=== PATIENT | female | born 1950 | race Caucasian/White ===

== ENCOUNTER → 2016-06-21 | Outpatient (CLI) | payer MEDICARE, OTHER ==
[~2016-06-21] MED LIST: *BLDWK7; /ALEN70TA; /ONDA4TA PO; ALTACE10 PO; AMO500 PO; ANAS1TAB PO; ASPI1TAB PO; ASPI81TA63; BABY81CH OR; CALCARB PO; CALCARB WITH VIT D; CALTTAB11 PO; CIPR500T89 PO; COLA100C2 OR; CRESTOR PO; DOXYCYC100 PO; ELIDEL TOPICAL; FISH1360 PO; FISHCAP PO; FLAG500T PO; HCTZ25 PO; HYDR25TA6; HYDR25TA6 OR; HYDR25TAB PO; LESCOLXL80 PO; LIPITOR40 PO; LISI-542 PO; LISI5TAB; LISI5TAB OR; LISINOPR5 PO; MULTIVIT PO; SIMV20TA2; SIMV20TA2 OR; TEMOVATEOI TOPICAL; TRICOR54 PO; TYLE325T5 PO; VICO5TAB PO; VIT D PO; VITMTA PO; [UNRECOGNIZED DRUG - OTHER] TOPICAL
--- NOTE | 2016-06-21 11:54 | REP ---
Clinical: Trauma. Injury. Technique: AP and lateral views of the right tibia / fibula. Findings: Age-related osteopenia and degenerative changes are appreciated. There is no evidence for acute fracture dislocation. No subcutaneous emphysema or radiodense foreign body. Impression: No acute fracture dislocation. Signed by Mil Silver MD 06/21/2016 11:45 A
== END ==
LOC: M RAD 10:58
PROVIDERS: ATTEND Internal Medicine Medical Oncology
DX: M79.89 Other specified soft tissue disorders (principal); M85.861 Other specified disorders of bone density and structure, right lower leg

== ENCOUNTER → 2016-06-24 | Outpatient (REF) | payer MEDICARE, OTHER | LOC: M LAB REF 09:50 | PROVIDERS: ATTEND Internal Medicine Medical Oncology | DX: E83.52 Hypercalcemia (principal); C50.919 Malignant neoplasm of unspecified site of unspecified female breast ==

== ENCOUNTER → 2016-08-19 | Outpatient (CLI) | payer MEDICARE, BC, OTHER ==
[~2016-08-19] MED LIST changes: +E-Z-PAQUE 96% w/w SUSP 176GM BTL As Ordered ONE
--- NOTE | 2016-08-19 16:30 | REP ---
SMALL BOWEL FOLLOW-THROUGH: The procedure was performed under the direct supervision of Dr. Rust. The images were reviewed with Dr. Rust. 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 The intestinal gas pattern is nonspecific. There is a surgical clip noted in the right abdomen. Liquid barium was administered and the barium column was followed through the small bowel to the level of the ileocolic anastomosis. Small bowel transit time was approximately 15 minutes. During fluoroscopy gentle palpation shows all loops are freely movable and pliable. There are no fixed or angulated loops. The small bowel mucosal pattern is normal in course and caliber. There is no transition to suggest a partial small bowel obstruction. The patient is status-post partial hemicolectomy. There is no stricture or obstruction seen at the ileocolic anastomosis. IMPRESSION: Post-surgical changes with the patient's history of right hemicolectomy and ileocolic anastomosis. The examination is within normal limits. 1 minute and 14 seconds of fluoroscopy time was utilized for this procedure. Reviewed by EDWARDO Stewart 08/19/2016 04:50 PEdited and Signed by Seth Rust MD 08/22/2016 08:34 A
== END ==
LOC: M RAD 08:50
PROVIDERS: ATTEND Surgery
DX: R10.13 Epigastric pain (principal)

== ENCOUNTER → 2016-10-17 | Outpatient (CLI) | payer MEDICARE, BC, OTHER ==
[~2016-10-17] MED LIST changes: -E-Z-PAQUE 96% w/w SUSP 176GM BTL As Ordered ONE; +MECL-68 PO; +ZOFR4TAB3 PO
--- NOTE | 2016-10-17 10:33 | REPMRS ---
Patient History The patient states she had a clinical breast exam in June 2016. Patient has history of cancer in the left breast at age 61 and had previous chemotherapy. No known family history of cancer. Malignant ultrasound-guided core biopsy of the left breast, June 14, 2012. Chemotherapy. Radiation therapy. Digital Mammo Screening Bilat: October 17, 2016 - Exam #: [id number] Bilateral CC and MLO view(s) were taken. Technologist: Shawnee Cadena, Technologist Prior study comparison: October 12, 2015, bilateral digital mammo screening bilat performed at [facility]. October 10, 2014, bilateral digital mammo screening bilat performed at [facility]. October 09, 2013, digital bilateral screening mammo performed at [facility]. FINDINGS: There are scattered fibroglandular densities. There are stable post treatment changes in the left breast.There has been no change in the appearance of the mammogram from the prior studies. There is a mild amount of scattered fibroglandular density which is fairly symmetric. There is no interval development of dominant mass, architectural distortion, or clustered microcalcification suggestive of malignancy. ASSESSMENT: BI-RADS/ACR category 1 mammogram. Negative. Recommendation Routine screening mammogram in 1 year (for women over age 40). This mammogram was interpreted with the aid of an FDA-approved computer-aided dectection system. Electronically Signed By: Thai Rust MD 10/17/16 [id number]
== END ==
LOC: M RAD 09:08
PROVIDERS: ATTEND Internal Medicine Medical Oncology
DX: Z12.31 Encounter for screening mammogram for malignant neoplasm of breast (principal); Z85.3 Personal history of malignant neoplasm of breast

== ENCOUNTER 2016-12-14 04:24 | Emergency (ER) | payer MEDICARE, BC, OTHER ==
[~2016-12-14] VITALS: Ht 157.5 cm; Wt 67.7 kg
[~2016-12-14 04:24] MED LIST changes: -MECL-68 PO; -ZOFR4TAB3 PO
[2016-12-14] MEDS ORDERED: MECLIZINE 25 MG TABLET PO ONE (06:45)
[2016-12-14] MEDS ORDERED: ONDANSETRON 4MG/2ML VIAL (J2405) IV ONE (06:45)
[2016-12-14] MEDS ORDERED: NS 1,000 ML IV ONE (06:45)
--- NOTE | 2016-12-14 07:00 | REPUSA ---
CLINICAL HISTORY: Dizziness. TECHNIQUE: Multiple axial CT images were obtained through the brain without IV contrast material. COMMENTS: There is normal configuration of sella turcica. There are no intra or extra-axial collections. There is no mass effect or midline shift. There is no evidence of hematoma formation. No hydrocephalus is p resent. The ventricles are symmetrical. No abnormal calcifications are present. There is diffuse age-appropriate cerebellar and cerebral atrophy with proportionally dilated ventricl es and cortical sulci. There are bilateral periventricular and subcortical white matter hypolucencies compatible with mild c hronic microvascular disease. Otherwise, no significant focal abnormalities are seen either in the posterior fossa or supratentoria l compartment. IMPRESSION: 1. Age-appropriate cerebellar and cerebral atrophy. 2. Mild chronic microvascular disease. 3. No evidence of acute intracranial pathology. Thank you for your kind referral of this patient.
[2016-12-14 07:06] LABS: BASO % 0.3 % (0.0-1.0); EOS % 0.5 % (0.0-3.0); LARGE UNSTAINED CELL # 0.1 K/mm3 (0.0-0.4); LARGE UNSTAINED CELL % 1.1 % (0.0-4.0); LYMPH # 1.9 K/mm3 (1.5-4.5); LYMPH % 25.7 % (24.0-44.0); MEAN CORPUSCULAR HGB CONC 35.4 g/dl (32.0-36.5); MEAN CORPUSCULAR VOLUME 87.5 fl (80.0-96.0); MONO # 0.3 K/mm3 (0.0-0.8); MONO % 3.5 % (0.0-5.0); NEUTROPHILS # 5.2 K/mm3 (1.8-7.7); NEUTROPHILS % 68.8 % (36.0-66.0); PLATELET COUNT, AUTOMATED 341 k/mm3 (150-450); RED CELL DISTRIBUTION WIDTH 12.5 % (11.5-14.5); WHITE BLOOD COUNT 7.5 K/mm3 (4.0-10.0)
[2016-12-14 07:34] LABS: ALBUMIN 3.7 GM/DL (3.2-5.2); ALBUMIN/GLOBULIN RATIO 0.82 (1.00-1.93); ALKALINE PHOSPHATASE 104 U/L (45-117); ALT/SGPT 49 U/L (12-78); ANION GAP 12 MEQ/L (8-16); AST/SGOT 38 U/L (15-37); BILIRUBIN,DIRECT 0.1 MG/DL (0.0-0.2); BILIRUBIN,TOTAL 0.4 MG/DL (0.2-1.0); BLOOD UREA NITROGEN 14 MG/DL (7-18); CALCIUM LEVEL 9.8 MG/DL (8.8-10.2); CARBON DIOXIDE LEVEL 24 MEQ/L (21-32); CHLORIDE LEVEL 105 MEQ/L (98-107); GLOMERULAR FILTRATION RATE > 60.0 (>45); GLUCOSE, FASTING 115 MG/DL (80-110); POTASSIUM SERUM 3.5 MEQ/L (3.5-5.1); SODIUM LEVEL 141 MEQ/L (136-145); TOTAL PROTEIN 8.2 GM/DL (6.4-8.2)
[2016-12-14] MEDS ORDERED: KETOROLAC 30 MG/ML VIAL (J1885) IV ONE (09:15)
[2016-12-14] MEDS ORDERED: MECL-68 PO (09:17)
[2016-12-14] MEDS ORDERED: ZOFR4TAB3 PO (09:17)
[2016-12-14 09:32] VITALS: BP 138/67
== END 2016-12-14 09:33 | disposition home or self-care (01) ==
LOC: M ED 04:24
DX: H81.10 Benign paroxysmal vertigo, unspecified ear (principal); R11.2 Nausea with vomiting, unspecified; I10 Essential (primary) hypertension; E78.00 Pure hypercholesterolemia, unspecified; Z85.3 Personal history of malignant neoplasm of breast; M54.9 Dorsalgia, unspecified; M81.0 Age-related osteoporosis without current pathological fracture; Z88.5 Allergy status to narcotic agent; Z88.8 Allergy status to other drugs, medicaments and biological substances; Z79.82 Long term (current) use of aspirin; Z79.899 Other long term (current) drug therapy
CPT/HCPCS: 70450; 80048; 80076; 81001; 85025; 96361; 96374; 96375; 99283; J1885; J2405

== ENCOUNTER → 2017-10-20 | Outpatient (CLI) | payer MEDICARE, BC, OTHER | LOC: M RAD 07:59 | DX: Z12.31 Encounter for screening mammogram for malignant neoplasm of breast (principal); Z85.3 Personal history of malignant neoplasm of breast | CPT/HCPCS: 77067 ==

== ENCOUNTER → 2018-09-17 | Outpatient (CLI) | payer MEDICARE, BC, OTHER ==
[~2018-09-17] MED LIST changes: -/ONDA4TA PO; -ANAS1TAB PO; +ANAS1TAB2 PO; -ASPI1TAB PO; +ASPI81TA26 PO; +MECL-68 PO; +ONDA-1 PO; +ZOFR4TAB14 PO
--- NOTE | 2018-09-17 10:44 | REP ---
LEFT KNEE SERIES: Five views. HISTORY: Pain. Five views of the left knee show moderate osteoarthritic narrowing, sclerosis and spur formation in the medial compartment. There is diffuse osteopenia. There is patellofemoral narrowing and spur formation as well. No erosive change is seen. IMPRESSION: Moderate osteoarthritis of the left knee. Electronically Signed by Seth Rust MD 09/17/2018 01:37 P
== END ==
LOC: M WUC 09:54
PROVIDERS: ATTEND Family Medicine
DX: M17.12 Unilateral primary osteoarthritis, left knee (principal)

== ENCOUNTER → 2019-03-11 | Outpatient (CLI) | payer MEDICARE, BC, OTHER ==
[~2019-03-11] MED LIST changes: +AMOX875T PO; +CALTTAB6 PO; +CENT1TAB PO; +CIPR-249 PO; +CYCL5TAB; +KETO10TAB PO; +NORC1TAB7 PO; +OMEG10002 PO; +ONDA4TAB6 PO; +PRED20TA
[2019-03-11 09:15] LABS: IONIZED CALCIUM 4.9 MG/DL (4.5-5.3)
[2019-03-11 09:20] LABS: HEMATOCRIT 36.6 % (36.0-47.0); MEAN CORPUSCULAR HEMOGLOBIN 31.3 pg (27.0-33.0); MEAN CORPUSCULAR HGB CONC 32.8 g/dl (32.0-36.5); MEAN CORPUSCULAR VOLUME 95.3 fl (80.0-96.0); PLATELET COUNT, AUTOMATED 296 10^3/uL (150-450); RED BLOOD COUNT 3.84 10^6/uL (4.00-5.40); WHITE BLOOD COUNT 6.4 10^3/uL (4.0-10.0)
[2019-03-11 09:57] LABS: ALBUMIN 3.5 GM/DL (3.2-5.2); ALT/SGPT 96 U/L (12-78); BILIRUBIN,DIRECT 0.1 MG/DL (0.0-0.2); BILIRUBIN,TOTAL 0.5 MG/DL (0.2-1.0); BLOOD UREA NITROGEN 12 MG/DL (7-18); CALCIUM LEVEL 10.6 MG/DL (8.8-10.2); CARBON DIOXIDE LEVEL 27 MEQ/L (21-32); CHLORIDE LEVEL 105 MEQ/L (98-107); CREATININE FOR GFR 0.82 MG/DL (0.55-1.30); GLOMERULAR FILTRATION RATE > 60.0 (>45); GLUCOSE, FASTING 97 MG/DL (70-100); POTASSIUM SERUM 4.3 MEQ/L (3.5-5.1); SODIUM LEVEL 138 MEQ/L (136-145); TOTAL PROTEIN 9.7 GM/DL (6.4-8.2)
[2019-03-11 12:44] LABS: TOTAL 25(OH) VITAMIN D 36.1 NG/ML (30.0-100.0)
[2019-03-12 10:37] LABS: ALBUMIN % 47.4 % (55.8-66.1); ALPHA-1-GLOBULIN % 2.9 % (2.9-4.9); ALPHA-1-GLOBULINS 0.28 GM/DL (0.17-0.41); ALPHA-2-GLOBULINS 0.87 GM/DL (0.42-0.99); BETA-1-GLOBULINS % 5.2 % (4.7-7.2); BETA-2-GLOBULINS 0.36 GM/DL (0.19-0.55); BETA-2-GLOBULINS % 3.7 % (3.2-6.5); GAMMA GLOBULIN % 31.8 % (11.1-18.8); GAMMA GLOBULINS 3.08 GM/DL (0.65-1.58)
== END ==
LOC: M WUC 08:06
PROVIDERS: ATTEND Family Medicine
DX: M81.0 Age-related osteoporosis without current pathological fracture (principal); I10 Essential (primary) hypertension; E83.52 Hypercalcemia; R74.0 Nonspecific elevation of levels of transaminase and lactic acid dehydrogenase [LDH]; R77.9 Abnormality of plasma protein, unspecified

== ENCOUNTER → 2019-09-19 | Outpatient (CLI) | payer MEDICARE, BC, OTHER ==
[~2019-09-19] MED LIST changes: +ACYC400T PO; +ASPI81CH33 PO; +ASPI81TA86 PO; +DEXA4TA PO; +HYDR-3490 PO; -HYDR25TAB PO; -LISI-542 PO; +LISI-898 PO; -MECL-68 PO; +MECL1TAB31 PO; +PERC5TAB12 PO; +POTA20TA6 PO; +REVL10CA2 PO; +REVL25CA PO
[2019-09-19 08:54] LABS: HEMATOCRIT 34.2 % (36.0-47.0); HEMOGLOBIN 11.4 g/dl (12.0-15.5); MEAN CORPUSCULAR HEMOGLOBIN 31.1 pg (27.0-33.0); MEAN CORPUSCULAR HGB CONC 33.3 g/dl (32.0-36.5); MEAN CORPUSCULAR VOLUME 93.4 fl (80.0-96.0); PLATELET COUNT, AUTOMATED 306 10^3/uL (150-450); RED BLOOD COUNT 3.66 10^6/uL (4.00-5.40); WHITE BLOOD COUNT 6.4 10^3/uL (4.0-10.0)
[2019-09-19 09:13] LABS: PROTHROMBIN TIME 12.9 SECONDS (11.8-14.0)
[2019-09-19 09:51] LABS: ALBUMIN 3.3 GM/DL (3.2-5.2); ALT/SGPT 126 U/L (12-78); BILIRUBIN,TOTAL 0.6 MG/DL (0.2-1.0); BLOOD UREA NITROGEN 12 MG/DL (7-18); CALCIUM LEVEL 10.7 MG/DL (8.8-10.2); CARBON DIOXIDE LEVEL 25 MEQ/L (21-32); CHLORIDE LEVEL 104 MEQ/L (98-107); CREATININE FOR GFR 0.86 MG/DL (0.55-1.30); GLOMERULAR FILTRATION RATE > 60.0 (>39); GLUCOSE, FASTING 93 MG/DL (70-100); POTASSIUM SERUM 4.2 MEQ/L (3.5-5.1); SODIUM LEVEL 135 MEQ/L (136-145); TOTAL PROTEIN 10.3 GM/DL (6.4-8.2)
--- NOTE | 2019-09-19 10:22 | REP ---
TWO-VIEW CHEST: 09/19/2019 INDICATION: Preoperative assessment. COMPARISON: 02/13/2019 FINDINGS: The lungs are clear. There is no pleural effusion or pneumothorax. The cardiac silhouette is at the upper limits of normal in size. Left axillary surgical clips are noted. IMPRESSION: Clear lungs. Electronically Signed by Abner Sykes DO 09/20/2019 08:41 A
--- NOTE | 2019-09-19 11:06 | ECGEPIP ---
[facility] Test Date: 2019-09-19 Pat Name: DAVID MARIA Department: Room: - Gender: Female Extrusion Former: JIM : 1950 Requested By: Hua Rodarte Order Number: [id number] Reading MD: Jimbo Morales Measurements Intervals [place] Rate: 82 P: 25 ND: 173 QRS: 27 QRSD: 82 T: 31 QT: 387 QTc: 453 Interpretive Statements Normal sinus rhythm PACs Nonspecific ST-T wave abnormalities No significant change when compared to prior tracing of 02/13/2019 Electronically Signed on 09-19-2019 11:05:44 EDT by Jimbo Morales
[2019-09-19 11:33] LABS: ERYTHROCYTE SEDIMENTATION RATE 85 mm/hr (0-30)
== END ==
LOC: M LAB 08:04
PROVIDERS: ATTEND Orthopaedic Surgery
DX: Z01.818 Encounter for other preprocedural examination (principal); M17.12 Unilateral primary osteoarthritis, left knee

== ENCOUNTER → 2019-09-22 | Outpatient (CLI) | payer MEDICARE, BC, OTHER ==
[~2019-09-22] MED LIST changes: -ACYC400T PO; -ASPI81CH33 PO; +ASPI81TA85 PO; -ASPI81TA86 PO; -DEXA4TA PO; -HYDR-3490 PO; +HYDR25TAB PO; +LISI-542 PO; -LISI-898 PO; -POTA20TA6 PO; -REVL10CA2 PO; -REVL25CA PO
== END ==
LOC: M LABSMTC 10:56
PROVIDERS: ATTEND Anesthesiology
DX: Z01.818 Encounter for other preprocedural examination (principal); Z11.59 Encounter for screening for other viral diseases

== ENCOUNTER 2019-09-25 06:00 | Inpatient (IN) | payer MEDICARE, BC, OTHER ==
--- NOTE | 2019-09-23 18:36 | HPE ---
DATE OF ANTICIPATED ADMISSION: 09/25/2019 ATTENDING PHYSICIAN: Dr. Hua Boss CHIEF COMPLAINT: Left knee pain and stiffness. HISTORY: This is a pleasant 69-year-old female patient with progressively worsening left knee pain and stiffness that has failed to improve with conservative management. She has elected for surgical intervention for her continued symptoms. She has been consented by Dr. oBss for left total knee arthroplasty. ALLERGIES: CODEINE. CURRENT MEDICATIONS: - Caltrate 600 - vitamin D 400 one by mouth twice a day - aspirin 81 mg one by mouth daily - Women's multivitamin one by mouth daily - fish oil one by mouth daily - lisinopril 5 mg one by mouth daily - hydrochlorothiazide 25 mg one by mouth daily PAST MEDICAL HISTORY: Hypertension, hyperlipidemia, breast cancer, elevated liver function tests (LFTs). PAST SURGICAL HISTORY: Hysterectomy, appendectomy, colon resection, right foot surgery, left knee arthroscopy, left partial mastectomy, right knee arthroscopy. SOCIAL HISTORY: The patient does not smoke or use alcohol. FAMILY HISTORY: Noncontributory. REVIEW OF SYSTEMS: Denies fever, chills, chest pain, shortness breath, nausea, vomiting, diarrhea. Denies any recent upper respiratory or urinary tract infection symptoms. Reports pain in the left knee with weightbearing activities. PHYSICAL EXAM: Height feet 2 inches, weight 145, temperature 97.1, blood pressure 150/80, respirations 65, pulse 15. She is normocephalic, atraumatic. Neck is supple and nontender with no lymphadenopathy or jugular venous distention (JVD). S1, S2 auscultated with no murmurs, rubs or gallops. Lungs: Clear to auscultation bilaterally with no wheezes, rales, rhonchi. Abdomen: Soft, nontender. Left lower extremity is well perfused, has intact neurovascular status. Irritability throughout range of motion. Overlying skin is intact. There is rashes or breaks in the skin. EKG: Normal sinus rhythm with premature atrial contractions (PACs). Chest x-ray with no acute cardiopulmonary process. LABS: Red count 3.66, white count 6.4, hemoglobin 11.4, hematocrit 34.2, ESR 85, BUN 12, creatinine 0.86, PT 12.9, INR 1. Medical optimization by Dr. Decker available for review today on chart. IMPRESSION: Symptomatic left knee degenerative changes. PLAN: Consented for a left total knee arthroplasty with Dr. Boss.
[2019-09-25] VITALS (7 sets, daily range): BP systolic 122–130; BP diastolic 59–72
[~2019-09-25] VITALS: Ht 154.9 cm; Wt 68.0 kg
[~2019-09-25 06:00] MED LIST changes: -ASPI81TA85 PO; +HYDR-3490 PO; -HYDR25TAB PO; -LISI-542 PO; +LISI-898 PO; -PERC5TAB12 PO; +fentaNYL 100 MCG/2 ML INJECTION (J3010) IV SCH
[2019-09-25] MEDS ORDERED: fentaNYL 100 MCG/2 ML INJECTION (J3010) As Ordered ONE ×2 (06:39→07:57)
[2019-09-25] MEDS ORDERED: MIDAZOLAM INJ 2MG/2ML VIAL (J2250 PER 1MG) As Ordered ONE ×2 (06:39→07:57)
[2019-09-25] MEDS ORDERED: LR 1,000 ML IV ONE (07:00)
[2019-09-25] MEDS ORDERED: ceFAZolin SOD 2 GM in IV 1 EA IV ONE (07:00)
[2019-09-25] MEDS ORDERED: ACETAMINOPHEN 500 MG TAB PO ONE (07:00)
[2019-09-25] MEDS ORDERED: BUPIVACAINE HCL 0.25% 10ML VIAL As Ordered ONE (07:13)
[2019-09-25] MEDS ORDERED: TRANEXAMIC ACID 100 MG/ML 10ML VIAL As Ordered ONE (07:13)
[2019-09-25] MEDS ORDERED: ceFAZolin 1GM VIAL (J0690 PER 500MG) As Ordered ONE (07:13)
[2019-09-25] MEDS ORDERED: BUPIVACAINE LIPOSOME/PF 1.3% 20ML VIAL (13.3MG/ML)(EXPAREL)(C9290 PER1MG) As Ordered ONE (07:14)
[2019-09-25] MEDS ORDERED: EPINEPHrine INJ 1 MG/ML 1ML AMP As Ordered ONE (07:14)
[2019-09-25] MEDS: MIDAZOLAM INJ 2MG/2ML VIAL (J2250 PER 1MG) IV SCH ×2 (07:18→07:20)
[2019-09-25] MEDS ORDERED: SCOPOLAMINE 1MG TRANSDERMAL PATCH As Ordered ONE (07:35)
[2019-09-25] MEDS ORDERED: SCOPOLAMINE 1MG TRANSDERMAL PATCH TOP ONE (07:45)
[2019-09-25] MEDS ORDERED: LIDOCAINE 2% 100MG/5ML SDV (FOR ANES.) As Ordered ONE (07:57)
[2019-09-25] MEDS ORDERED: BUPIVACAINE/DEXTROSE 0.75% 2 ML AMP As Ordered ONE (07:57)
[2019-09-25] MEDS ORDERED: propofoL 200 MG/20 ML VIAL As Ordered ONE (07:57)
[2019-09-25] MEDS ORDERED: ONDANSETRON 4MG/2ML VIAL As Ordered ONE (07:57)
[2019-09-25] MEDS ORDERED: ePHEDrine SULFATE 25 MG/5 ML(5MG/ML) SYRINGE As Ordered ONE (08:03)
[2019-09-25] MEDS ORDERED: ACETAMINOPHEN 1000MG 100ML IV BTL (OFIRMEV) (J0131 PER 10MG) As Ordered ONE (08:16)
[2019-09-25] MEDS ORDERED: ONDANSETRON 4MG/2ML VIAL IV PRN ×2 (09:30→09:45)
[2019-09-25] MEDS ORDERED: MORPHINE 2 MG/ML 1ML VIAL (J2270) IV PRN (09:30)
[2019-09-25] MEDS ORDERED: PERCOCET 5MG/325MG TAB PO PRN ×2 (09:30)
[2019-09-25] MEDS ORDERED: ACETAMINOPHEN TAB 650MG DOSE (2X325MG) PO PRN (09:30)
[2019-09-25] MEDS ORDERED: LR 1,000 ML IV SCH ×2 (09:30→09:45)
[2019-09-25] MEDS ORDERED: fentaNYL 100 MCG/2 ML INJECTION (J3010) IV PRN (09:45)
--- NOTE | 2019-09-25 09:55 | REP ---
Left knee: Two views. History: Postop evaluation. AP and lateral portably obtained views of the left knee demonstrate left knee arthroplasty components in good position. Anterior skin mindi and periarticular an intra-articular fluid and gas are seen. Impression: Status post left knee arthroplasty. Electronically Signed by Seth Rust MD 09/25/2019 09:47 A
[2019-09-25] MEDS ORDERED: ROPIvacaine 0.5% 30ML INJECTION (J2795 PER 1MG) ONE (11:13)
[2019-09-25] MEDS ORDERED: dexameTHASONE 10MG/1ML VIAL PRES.FREE (J1100 PER 1MG) ONE (11:13)
[2019-09-25] MEDS ORDERED: LIDOCAINE 1% MDV 20ML VIAL ONE (11:13)
[2019-09-25] MEDS: ceFAZolin SOD 2 GM in IV 1 EA IV SCH (14:43)
--- NOTE | 2019-09-25 19:29 | CR.PDOC ---
General Date of Consultation: Sep 25, 2019 Consultation REASON FOR CONSULTATION/CHIEF COMPLAINT: Status post left total knee arthroplasty. HISTORY OF PRESENT ILLNESS: 69-year-old female with past medical history of hypertension, hyperlipidemia and breast cancer, status post resection is admitted status post left total knee arthroplasty. Patient is seen on the floor, comfortable in bed, without any complaints at this time. She is able to move her left lower extremity and reports minimal pain at this time. She denies any shortness of breath, chest pain, nausea, vomiting, diarrhea or constipation. 10 point review of system is negative except for above ALLERGIES: Please see below. HOME MEDICATIONS: Please see below. PAST MEDICAL HISTORY: 1. Hypertension. 2. Hyperlipidemia. 3. Breast cancer PAST SURGICAL HISTORY: 1. Appendectomy 2. Left total knee arthroplasty FAMILY HISTORY: Negative for heart disease SOCIAL HISTORY: Never smoker. Denies alcohol use. Denies drug use PHYSICAL EXAMINATION: VITAL SIGNS: Please see below. GENERAL: No distress HEENT: Normocephalic, atraumatic, moist mucous membranes NECK: Supple CARDIOVASCULAR EXAMINATION: S1, S2, no murmurs RESPIRATORY EXAMINATION: Clear to auscultation, no wheezing ABDOMINAL EXAMINATION: Soft, nontender, nondistended, positive bowel sounds EXTREMITIES: Range of motion limited due to pain SKIN: No rash NEUROLOGICAL EXAMINATION: Alert and oriented 3, no focal deficits PSYCHIATRIC EXAMINATION: Calm and cooperative LABORATORY DATA: Please see below. ASSESSMENT/PLAN: 69-year-old female with past medical history of hypertension, hyperlipidemia and breast cancer is admitted post left total knee arthroplasty. 1. Left total knee arthroplasty. Postop management including DVT prophylaxis as per primary team. 2. Hypertension. Continue lisinopril and hydrochlorothiazide Vital Signs/I&O Vital Signs Date Time Temp Pulse Resp B/P (MAP) Pulse Ox O2 Delivery O2 Flow Rate FiO2 09/25/19 15:30 98.5 94 16 126/71 (89) 98 Room Air 09/25/19 09:45 2 Allergies Coded Allergies: TAPE (Verified Allergy, Mild, RASH, 09/18/19) codeine (Verified Adverse Reaction, Mild, nausea, 09/18/19) paclitaxel (Verified Adverse Reaction, Mild, bp drops, 09/18/19) Uncoded Allergies: EPIDURAL (Allergy, Intermediate, generalized rash, 09/18/19) Home Medications Scheduled Aspirin (Aspirin EC) 81 Mg Tab, 81 MG PO DAILY, (Reported) Enzo/D3/Mag11/Zinc/High Worker/Hector/Bor (Caltrate 600+D Plus Tablet) 1 Each Tablet, 1 TAB PO BID for 30 Days, #60 (Reported) Hydrochlorothiazide (Hydrochlorothiazide) 25 Mg Tab, 0.25 TAB PO DAILY, (Reported) Lisinopril (Lisinopril) 5 Mg Tablet, 5 MG PO DAILY, (Reported) Multivit-Min/FA/Lycopen/Lutein (Centrum Silver Tablet) 1 Each Tablet, 1 TAB PO DAILY for 30 Days, #30 (Reported) [place]-3/Dha/Epa/Fish Oil (Fish Oil 1,000 mg Softgel) 1 Each Capsule, 1 CAP PO DAILY, (Reported) BOB HARPER MD Sep 25, 2019 19:29
[2019-09-25] MEDS: ASPIRIN 81 MG CHEW TABLET PO SCH (20:54)
[2019-09-26] MEDS: ceFAZolin SOD 2 GM in IV 1 EA IV SCH ×2 (00:18→08:07)
[2019-09-26 02:00] VITALS: BP 105/52
[2019-09-26 06:00] VITALS: BP 103/51
[2019-09-26] MEDS ORDERED: PERC5TAB12 PO (06:17)
[2019-09-26] MEDS ORDERED: ASPI81TA86 PO (06:17)
[2019-09-26 06:34] LABS: HEMATOCRIT 24.4 % (36.0-47.0); HEMOGLOBIN 8.3 g/dl (12.0-15.5); MEAN CORPUSCULAR HEMOGLOBIN 31.9 pg (27.0-33.0); MEAN CORPUSCULAR VOLUME 93.8 fl (80.0-96.0); PLATELET COUNT, AUTOMATED 204 10^3/uL (150-450)
[2019-09-26 07:08] LABS: ALBUMIN 2.6 GM/DL (3.2-5.2); BILIRUBIN,TOTAL 0.7 MG/DL (0.2-1.0); CALCIUM LEVEL 9.6 MG/DL (8.8-10.2); CREATININE FOR GFR 1.16 MG/DL (0.55-1.30); GLOMERULAR FILTRATION RATE 49.2 (>39); POTASSIUM SERUM 3.6 MEQ/L (3.5-5.1)
[2019-09-26] MEDS: ASPIRIN 81 MG CHEW TABLET PO SCH (08:07)
[2019-09-26 08:08] VITALS: BP 108/51
[2019-09-26] MEDS ORDERED: lisinopriL 5 MG TAB PO SCH (09:00)
[2019-09-26] MEDS ORDERED: hydroCHLOROthiazide 12.5 MG CAPSULE PO SCH (09:00)
[2019-09-26] MEDS ORDERED: MULTIVITAMINS/MINERALS THERAP 1 TAB PO SCH (09:00)
[2019-09-26] MEDS ORDERED: MOM 30ML SUSPENSION UDC PO SCH (09:00)
[2019-09-26] MEDS ORDERED: MIRALAX *UNIT DOSE* 17GM PACKET PO SCH (09:00)
[2019-09-26] MEDS ORDERED: OMEGA-3 1000MG CAPSULE PO SCH (09:00)
[2019-09-26 09:47] VITALS: BP 76/47
[2019-09-26 09:49] VITALS: BP 91/41
[2019-09-26 10:52] VITALS: BP 106/59
--- NOTE | 2019-09-29 12:30 | RO ---
DATE OF PROCEDURE: 09/25/2019 PREPROCEDURE DIAGNOSIS: Left knee degenerative arthritis. POSTPROCEDURE DIAGNOSIS: Left knee degenerative arthritis. PROCEDURE: Left total knee arthroplasty using a size 5 cruciate retaining Attune femoral component cemented with a size 4 cemented tibial tray with a 5 mm rotating platform polyethylene insert and an 32 mm polyethylene button. All components were cemented. Prostheses were made by [employer]. SURGEON: Dr. Hua Boss. GARNISHMENT SPECIALIST: Mr. Eduard Shipley PA-C. ANESTHESIA: Spinal with left femoral nerve block. COMPLICATIONS: None. SPECIMENS: Joint surface of the left knee. DESCRIPTION OF PROCEDURE: Antibiotics were given intravenously preoperatively. Successful left femoral nerve block and then spinal anesthetic was induced. Tourniquet placed in the left upper thigh and not inflated. The left lower extremity was carefully prepped and draped in the usual sterile fashion and elevated. After an appropriate time out the tourniquet was inflated. A longitudinal incision was made from a medial parapatellar approach to the knee. Bovie cautery was used to coagulate the crossing vessels. Subperiosteal dissection over the proximal and mediolateral tibial plateau was performed and the knee was flexed, patella everted, anterior cruciate ligament (ACL) debrided. Drill placed down the center of the femoral canal followed by the intramedullary shameka and the distal femoral cutting jig set at 5 degree valgus cut at 9 mm resection level for a left knee. I was pinned into place and the distal femoral cut performed. AC sizing jig measured for size 5. Three-degree flexion and rotation were dialed in. Pins placed, 4-in-1 block applied, and then anterior posterior and chamfer cuts were performed. The sulcus cut jig was then placed and sulcus osteotomy performed. With then exposed the proximal tibia and used an extramedullary tibial guide to estimate being parallel to the mechanical axis of the tibia by referencing off the medial tibial condyle at 4 mm resection level. The block was pinned into position, then secondary check with the extramedullary rods confirmed we appear to be parallel with appropriate slope posteriorly. Proximal tibial osteotomy was performed and then we placed the laminar greeting card editor laterally and performed a completion medial meniscectomy debriding the posteromedial osteophytes. Then placed the laminar greeting card editor medially and performed a completion lateral meniscectomy debriding the posterolateral osteophytes. Spacer blocks were applied and trialled and size 5 actually fit the best. She had excellent symmetry to varus, valgus stress testing both in flexion and in extension. We then exposed the proximal tibia sized for a #4 tray. Then the reamer and broach applied and then the trial polyethylene placed followed by the trial femoral component. It fit nicely. Brought the knee into extension, everted the patella. Performed patellar osteotomy, sized for a 32 button. Lug holes drilled, trial placed and a patellofemoral tracking was anatomic. We drilled the lug holes in the femur. Then removed all the trial components and placed Exparel on the subperiosteal tissues around the distal femur and the proximal tibia. Then I applied a copious amount of pulsatile lavaged irrigant solution to the knee and prepared the bony surfaces for cementing. While my compounding assistant, Mr. Eduard Shipley mixed the cement on the back table. He was also critical to the success of this difficult surgery by applying appropriate soft tissue retraction. Help to manipulate the knee. Help to prepare the patient. Help to close the wound amongst many other tasks to allow me to perform the operation smoothly, efficiently and safely. Once all the bony surfaces were thoroughly dried, we cemented the tibial tray, removed access cement. Placed the polyethylene, cemented the femoral component, removed excess cement. Brought the knee out in extension, everted the patella, cemented the patellar button, held it with a clamp with the knee in full extension, then removed excess cement. We held this position till the cement hardened. As we were waiting for the cement to harden, we copiously pulsatile lavaged irrigated out the knee joint once again. Then instilled tranexamic acid. We the began closing the arthrotomy with two #1 PDS sutures. The medial parapatellar area as well as the #1 PDS suture. Then a running double arm #1 Stratafix used to close the capsule. Then the tourniquet was released. We copiously irrigated off the soft tissue. Closed the deep subdermal tissues with interrupted #2-0 PDS sutures. Skin was closed with mindi covered by an Optifoam and a dry sterile bulky dressing. Then she was transferred to the recovery room in stable condition. There were no intraoperative complications.
--- NOTE | 2019-10-05 13:05 | DSES ---
DATE OF ADMISSION: 09/25/2019 DATE OF DISCHARGE: 09/26/2019 ATTENDING PHYSICIAN: Cayden Boss MD ADMISSION DIAGNOSIS: 1. Left knee osteoarthritis. OTHER DIAGNOSES: 1. Hypertension. 2. Hyperlipidemia. 3. Breast cancer. 4. Elevated liver function tests. DISCHARGE DIAGNOSIS: 1. Osteoarthritis, left knee, status post left total knee arthroplasty. OPERATION PERFORMED: Left total knee arthroplasty. HISTORY: This is a 69-year-old female patient with progressively worsening left knee pain and stiffness. She failed to improve with conservative management. She was admitted for elective left knee replacement. HOSPITAL COURSE: The patient was admitted on the day of surgery and underwent a left total knee arthroplasty, which was uneventful. She did well with in the postoperative period and hospital course was without complications. She was up with physical therapy per their protocol, weightbearing as tolerated on the left lower extremity. Her pain was controlled on the day of discharge. She will use Xarelto and ROSY stockings for deep vein thrombosis (DVT) prophylaxis per protocol. She will resume her preoperative medications and diet along with oral pain medications for pain control. She was given instructions to include but not limited to wound monitoring, activity limitations. She will follow up in our office in 10-14 days for surgical followup. Please refer the medical record for further details
[2020-01-29] MEDS ORDERED: ASPI81CH33 PO (12:56)
[2020-02-12] MEDS ORDERED: POTA20TA6 PO (10:59)
[2020-02-12] MEDS ORDERED: DEXA4TA PO (17:58)
[2020-02-12] MEDS ORDERED: ACYC400T PO (17:58)
[2020-02-12] MEDS ORDERED: REVL25CA PO (18:02)
[2020-02-17] MEDS ORDERED: REVL10CA2 PO (12:22)
[2020-03-04] MEDS ORDERED: POTA20TA6 PO ×2 (08:50→15:05)
== END 2019-09-26 15:22 | disposition home health service (06) | DRG 470 ==
LOC: M OR 06:00 → M MS5PR 10:30
PROVIDERS: ADMIT Orthopaedic Surgery; ATTEND Orthopaedic Surgery
PROC: 0SRD0J9 Replacement of Left Knee Joint with Synthetic Substitute, Cemented, Open Approach (ICD-10-PCS; principal; 2019-09-25 07:30)
DX: M17.12 Unilateral primary osteoarthritis, left knee (principal); Z11.59 Encounter for screening for other viral diseases; I10 Essential (primary) hypertension; E78.5 Hyperlipidemia, unspecified; Z79.899 Other long term (current) drug therapy; Z79.82 Long term (current) use of aspirin; Z88.8 Allergy status to other drugs, medicaments and biological substances; Z88.5 Allergy status to narcotic agent

== ENCOUNTER → 2019-12-10 | Outpatient (CLI) | payer MEDICARE, BC ==
[~2019-12-10] MED LIST changes: +ACYC400T PO; +ASPI81CH33 PO; +ASPI81TA86 PO; +DEXA4TA PO; -HYDR-3490 PO; +HYDR25TAB PO; +LISI-542 PO; -LISI-898 PO; +PERC5TAB12 PO; +POTA20TA6 PO; +REVL25CA PO; -fentaNYL 100 MCG/2 ML INJECTION (J3010) IV SCH
--- NOTE | 2019-12-10 12:36 | REPMRS ---
Patient History The patient states she has not had a clinical breast exam in over a year. No known family history of cancer. Malignant ultrasound-guided core biopsy of the left breast, June 14, 2012. Chemotherapy. Radiation therapy. 3D TOMOSYNTHESIS WAS PERFORMED. YUNIOR Rahman. Digital Woman Screen Mammo: December 10, 2019 - Exam #: [id number] Bilateral CC and MLO view(s) were taken. Technologist: Hansa Monteiro Technologist Prior study comparison: October 22, 2018, bilateral digital mammo screening bilat, performed at [facility]. October 20, 2017, bilateral digital mammo screening bilat, performed at [facility]. FINDINGS: There are scattered fibroglandular densities. There is a fairly symmetric fibroglandular pattern in both breasts. There has been no interval development of masses, areas of architectural distortion or clusters of microcalcifications typical of malignancy. Assessment: BI-RADS/ACR category 2 mammogram. Benign Findings. Recommendation Routine screening mammogram of both breasts in 1 year (for women over age 40). This mammogram was interpreted with the aid of an FDA-approved computer-aided dectection system. Electronically Signed By: Tj Zuluaga MD 12/10/19 [id number]
== END ==
LOC: M WHC 10:04
PROVIDERS: ATTEND Family Medicine
DX: Z12.31 Encounter for screening mammogram for malignant neoplasm of breast (principal)

== ENCOUNTER → 2020-01-10 | Outpatient (CLI) | payer MEDICARE, BC, OTHER ==
[~2020-01-10] MED LIST changes: -ACYC400T PO; -DEXA4TA PO; -POTA20TA6 PO; -REVL25CA PO
--- NOTE | 2020-01-15 08:15 | REP ---
SKELETAL SURVEY ADULT: 13-VIEWS HISTORY: Bone pain. FINDINGS: The bony calvarium is intact on AP and lateral views of the skull. No mandibular lesion is seen. There is mild degenerative disc spurring in the cervical spine at C5-6 and C6-7. There is vascular calcification along the course of the left carotid artery. Cervical spine views are otherwise unremarkable. AP views of both upper arms show surgical clips in the left axilla and mild diffuse osteopenia. There is no bony destructive lesion. AP view of the pelvis shows osteoarthritic changes in the hips bilaterally and diffuse osteopenia. No bony destructive lesion is seen. AP views of each femur show hip joint and medial compartment knee joint osteoarthritis on the right and hip joint osteoarthritis on the left. The left knee joint is prosthetic. No bony destructive lesion is seen. AP and lateral views of the lumbar spine show mild degenerative disc and osteoarthritic facet changes. No bony destructive lesion is seen. Sacrum and sacroiliac (SI) joints are intact. There is a surgical clip in the right upper quadrant. IMPRESSION: No bony destructive lesion seen. MTDD
== END ==
LOC: M RAD 08:44
PROVIDERS: ATTEND Internal Medicine Medical Oncology
DX: M89.8X0 Other specified disorders of bone, multiple sites (principal); M16.0 Bilateral primary osteoarthritis of hip; M17.11 Unilateral primary osteoarthritis, right knee; M85.851 Other specified disorders of bone density and structure, right thigh; M85.852 Other specified disorders of bone density and structure, left thigh

== ENCOUNTER → 2020-01-13 | Outpatient (REF) | payer MEDICARE, OTHER ==
[2020-01-15 04:06] LABS: FREE KAPPA LIGHT CHAINS URINE 4.24 mg/L (0.63-113.79); FREE LAMBDA LIGHT CHAINS URINE 10.59 mg/L (0.47-11.77); KAPPA/LAMBDA RATIO URINE 0.4 (1.03-31.76)
== END ==
LOC: M LAB REF 13:02
PROVIDERS: ATTEND Internal Medicine Medical Oncology
DX: C50.919 Malignant neoplasm of unspecified site of unspecified female breast (principal)

== ENCOUNTER → 2020-02-10 | Outpatient (CLI) | payer MEDICARE, BC, OTHER ==
[~2020-02-10] MED LIST changes: +ACYC400T PO; +DEXA4TA PO; +POTA20TA6 PO; +REVL25CA PO
--- NOTE | 2020-02-10 17:24 | REP ---
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 COMPARISON: Comparison adult bone survey January 10, 2020.. TECHNIQUE: Forty-nine minutes following the intravenous injection of a 8.25 mCi dose of F-18 FDG, three-dimensional PET scintigraphy is acquired from the skull base to the proximal thighs. Triplanar noncontrast CT scanning is acquired through the same anatomic range for attenuation correction, and image registration with scan parameters optimized to minimize radiation exposure to the patient. PET scintigraphy and CT datasets were fused and displayed on a workstation with multiplanar and projection display capability. FINDINGS: Head and neck soft tissues are unremarkable. No abnormal hypermetabolic uptake is observed in the thorax. No abnormal pulmonary parenchymal or hilar or mediastinal hypermetabolic uptake is seen. In the abdomen and pelvis, normal a patent, splenic, gastrointestinal, and genitourinary FDG accumulation is seen. There is no evidence of organomegaly. There are calcifications in the deep and portion of gallbladder consistent with gallstones. No abnormal abdominal or pelvic hypermetabolic uptake is seen. No abnormal skeletal uptake is observed. IMPRESSION: Negative PET scintigraphy. Cholelithiasis. <Electronically signed by Thai Rust > 02/10/20 [id number]
== END ==
LOC: M PLARAD 10:32
PROVIDERS: ATTEND Internal Medicine Medical Oncology
DX: C90.10 Plasma cell leukemia not having achieved remission (principal)
CPT/HCPCS: 78815; A9552

== ENCOUNTER → 2020-07-03 | Outpatient (CLI) | payer MEDICARE, BC, OTHER ==
[~2020-07-03] MED LIST changes: +CYCL-707 PO; +HYDR-3490 PO; -HYDR25TAB PO; -LISI-542 PO; +LISI-898 PO; +REVL10CA2 PO
--- NOTE | 2020-07-03 18:02 | REP ---
INDICATION: BACK PAIN. COMPARISON: Chest radiographs 09/19/2019. TECHNIQUE: AP and lateral thoracic spine. FINDINGS: There is mild compression deformity of T11 which is unchanged since the prior exam. There is no acute compression fracture or malalignment. There is mild diffuse spurring. There is mild disc space narrowing and subchondral sclerosis diffusely. The posterior elements are intact. IMPRESSION: Chronic mild compression deformity T11 is stable. No new compression fracture. Mild diffuse degenerative changes. <Electronically signed by Tj Zuluaga > 07/03/20 [id number]
--- NOTE | 2020-07-03 18:04 | REP ---
INDICATION: BACK PAIN. COMPARISON: None. TECHNIQUE: Three views lumbosacral spine. FINDINGS: There is no compression fracture. There is normal lumbar lordosis and alignment. There is mild diffuse spurring. Disc spaces are well preserved. There is sclerosis and spurring of the facets of L5-S1. Posterior elements are intact. IMPRESSION: Mild degenerative changes. No fracture or dislocation. <Electronically signed by Tj Zuluaga > 07/03/20 [id number]
== END ==
LOC: M RAD 15:56
PROVIDERS: ATTEND Internal Medicine Medical Oncology
DX: M51.37 Other intervertebral disc degeneration, lumbosacral region (principal); S22.080D Wedge compression fracture of T11-T12 vertebra, subsequent encounter for fracture with routine healing; X58.XXXD Exposure to other specified factors, subsequent encounter; Y92.89 Other specified places as the place of occurrence of the external cause; Y93.89 Activity, other specified; Y99.8 Other external cause status

== ENCOUNTER → 2020-07-14 | Outpatient (CLI) | payer MEDICARE, BC, OTHER ==
[~2020-07-14] MED LIST changes: +ACYC1TAB PO; -ACYC400T PO
--- NOTE | 2020-07-14 15:13 | REP ---
INDICATION: LT FLANK PAIN. COMPARISON: None. TECHNIQUE: Real-time sonographic evaluation of the kidneys is performed. FINDINGS: Renal cortical echogenicity pattern is normal bilaterally and contours are smooth. There is no evidence of hydronephrosis, cyst, mass, or calculus in either kidney. The right kidney measures 10.3 x 4.7 x 4.2 cm. Left renal dimensions are 10.6 x 4.1 x 4.2 cm. Urinary bladder is empty. IMPRESSION: Negative renal ultrasound. <Electronically signed by Tj Zuluaga > 07/14/20 [id number]
== END ==
LOC: M RAD 14:25
PROVIDERS: ATTEND Internal Medicine Medical Oncology
DX: R10.9 Unspecified abdominal pain (principal)

== ENCOUNTER → 2020-08-20 | Outpatient (CLI) | payer MEDICARE, BC, OTHER ==
[~2020-08-20] MED LIST changes: +COVI100V IM; +PRED20TA PO; +[UNRECOGNIZED DRUG - OTHER] XX
[2020-08-20 10:12] LABS: BASO % 0.6 % (0.0-1.0); EOS # 0.1 10^3/uL (0.0-0.5); EOS % 1.6 % (0.0-3.0); HEMATOCRIT 39.6 % (36.0-47.0); HEMOGLOBIN 12.9 g/dl (12.0-15.5); LYMPH # 2.2 10^3/uL (1.5-5.0); LYMPH % 34.8 % (24.0-44.0); MEAN CORPUSCULAR HEMOGLOBIN 29.1 pg (27.0-33.0); MEAN CORPUSCULAR HGB CONC 32.6 g/dl (32.0-36.5); MEAN CORPUSCULAR VOLUME 89.2 fl (80.0-96.0); MONO # 0.6 10^3/uL (0.0-0.8); MONO % 9.8 % (2.0-8.0); NEUTROPHILS # 3.3 10^3/uL (1.5-8.5); NEUTROPHILS % 52.1 % (36.0-66.0); PLATELET COUNT, AUTOMATED 368 10^3/uL (150-450); RED BLOOD COUNT 4.44 10^6/uL (4.00-5.40); WHITE BLOOD COUNT 6.3 10^3/uL (4.0-10.0)
[2020-08-20 10:38] LABS: ALT/SGPT 71 U/L (12-78); BILIRUBIN,TOTAL 0.6 MG/DL (0.2-1.0); BLOOD UREA NITROGEN 17 MG/DL (7-18); CARBON DIOXIDE LEVEL 31 MEQ/L (21-32); CHLORIDE LEVEL 103 MEQ/L (98-107); CREATININE FOR GFR 0.64 MG/DL (0.55-1.30); GLOMERULAR FILTRATION RATE > 60.0 (>39); GLUCOSE, FASTING 100 MG/DL (70-100); SODIUM LEVEL 140 MEQ/L (136-145); TOTAL PROTEIN 7.3 GM/DL (6.4-8.2)
== END ==
LOC: M WUC 08:04
PROVIDERS: ATTEND Internal Medicine Medical Oncology
DX: C90.00 Multiple myeloma not having achieved remission (principal)

== ENCOUNTER 2020-08-22 10:13 | Emergency (ER) | payer MEDICARE, BC, OTHER ==
[~2020-08-22] VITALS: Ht 157.5 cm; Wt 67.0 kg
[~2020-08-22 10:13] MED LIST changes: -[UNRECOGNIZED DRUG - OTHER] XX
[2020-08-22] MEDS ORDERED: ONDANSETRON 4MG/2ML VIAL IV ONE (11:40)
--- NOTE | 2020-08-22 12:02 | REP ---
INDICATION: vertigo. COMPARISON: Comparison CT study of the brain is from December 14, 2016.. TECHNIQUE: Helical scanning is acquired. 5 mm axial images were reformatted. Coronal MPR images were generated. FINDINGS: Preliminary digital clinic scheduler radiograph is unremarkable. There is mild vascular calcification in the distal internal carotid arteries. The visualized paranasal sinuses are clear. No bony abnormality is appreciated. On soft tissue window settings, there is mild generalized volume loss. Lateral, 3rd, and 4th ventricles are normal in size and position. Zuluaga-white differentiation pattern is intact above and below the tentorium. There is no evidence of intracranial hemorrhage. No mass, extra-axial fluid collection, midline shift, or acute infarction is appreciated. IMPRESSION: Vascular calcification and minimal generalized volume loss. No acute intracranial abnormality.. <Electronically signed by Thai Rust > 08/22/20 4720
[2020-08-22 13:07] LABS: BLOOD UREA NITROGEN 15 MG/DL (7-18); CALCIUM LEVEL 9.1 MG/DL (8.8-10.2); CARBON DIOXIDE LEVEL 26 MEQ/L (21-32); CHLORIDE LEVEL 106 MEQ/L (98-107); CREATININE FOR GFR 0.62 MG/DL (0.55-1.30); GLOMERULAR FILTRATION RATE > 60.0 (>39); GLUCOSE, FASTING 94 MG/DL (70-100); SODIUM LEVEL 139 MEQ/L (136-145)
[2020-08-22 13:14] LABS: BASO % 0.4 % (0.0-1.0); EOS % 0.1 % (0.0-3.0); HEMATOCRIT 38.3 % (36.0-47.0); HEMOGLOBIN 12.8 g/dl (12.0-15.5); LYMPH # 0.8 10^3/uL (1.5-5.0); LYMPH % 9.6 % (24.0-44.0); MEAN CORPUSCULAR HEMOGLOBIN 29.1 pg (27.0-33.0); MEAN CORPUSCULAR HGB CONC 33.4 g/dl (32.0-36.5); MONO # 0.6 10^3/uL (0.0-0.8); MONO % 6.6 % (2.0-8.0); NEUTROPHILS # 6.8 10^3/uL (1.5-8.5); NEUTROPHILS % 81.4 % (36.0-66.0); PLATELET COUNT, AUTOMATED 313 10^3/uL (150-450); WHITE BLOOD COUNT 8.3 10^3/uL (4.0-10.0)
[2020-08-22] MEDS ORDERED: MECL1TAB31 PO (14:04)
[2020-08-22] MEDS ORDERED: [UNRECOGNIZED DRUG - OTHER] XX ×3 (14:08→14:10)
[2020-08-22 14:28] VITALS: BP 147/66
--- NOTE | 2020-08-23 07:44 | ECGEPIP ---
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
== END 2020-08-22 14:38 | disposition home or self-care (01) ==
LOC: M ED 10:13
DX: H81.10 Benign paroxysmal vertigo, unspecified ear (principal); I10 Essential (primary) hypertension; Z85.3 Personal history of malignant neoplasm of breast; C90.00 Multiple myeloma not having achieved remission; I67.2 Cerebral atherosclerosis; Z95.828 Presence of other vascular implants and grafts; Z79.82 Long term (current) use of aspirin; Z79.899 Other long term (current) drug therapy; Z91.89 Other specified personal risk factors, not elsewhere classified; Z88.5 Allergy status to narcotic agent; Z88.8 Allergy status to other drugs, medicaments and biological substances
CPT/HCPCS: 70450; 80048; 85025; 93005; 96374; 97110; 97161; 97530; 99285; J2405

== ENCOUNTER → 2020-08-26 | Outpatient (CLI) | payer MEDICARE, BC, OTHER ==
[~2020-08-26] MED LIST changes: +[UNRECOGNIZED DRUG - OTHER] XX
[2020-08-26 09:43] LABS: BASO % 0.4 % (0.0-1.0); EOS # 0.1 10^3/uL (0.0-0.5); EOS % 1.8 % (0.0-3.0); HEMATOCRIT 38.5 % (36.0-47.0); HEMOGLOBIN 12.6 g/dl (12.0-15.5); LYMPH # 2.3 10^3/uL (1.5-5.0); LYMPH % 31.1 % (24.0-44.0); MEAN CORPUSCULAR HEMOGLOBIN 28.8 pg (27.0-33.0); MEAN CORPUSCULAR HGB CONC 32.7 g/dl (32.0-36.5); MEAN CORPUSCULAR VOLUME 87.9 fl (80.0-96.0); MONO # 0.9 10^3/uL (0.0-0.8); MONO % 12.4 % (2.0-8.0); NEUTROPHILS # 3.9 10^3/uL (1.5-8.5); NEUTROPHILS % 52.8 % (36.0-66.0); PLATELET COUNT, AUTOMATED 296 10^3/uL (150-450); RED BLOOD COUNT 4.38 10^6/uL (4.00-5.40); WHITE BLOOD COUNT 7.3 10^3/uL (4.0-10.0)
[2020-08-26 09:49] LABS: ALBUMIN 3.9 GM/DL (3.2-5.2); ALT/SGPT 59 U/L (12-78); BILIRUBIN,TOTAL 0.5 MG/DL (0.2-1.0); BLOOD UREA NITROGEN 18 MG/DL (7-18); CALCIUM LEVEL 9.7 MG/DL (8.8-10.2); CARBON DIOXIDE LEVEL 28 MEQ/L (21-32); CHLORIDE LEVEL 104 MEQ/L (98-107); GLOMERULAR FILTRATION RATE > 60.0 (>39); GLUCOSE, FASTING 94 MG/DL (70-100); POTASSIUM SERUM 4.2 MEQ/L (3.5-5.1); SODIUM LEVEL 140 MEQ/L (136-145); TOTAL PROTEIN 7.1 GM/DL (6.4-8.2)
== END ==
LOC: M WUC 08:05
PROVIDERS: ATTEND Internal Medicine Medical Oncology
DX: C90.00 Multiple myeloma not having achieved remission (principal)

== ENCOUNTER → 2020-09-02 | Outpatient (CLI) | payer MEDICARE, BC, OTHER ==
[2020-09-02 10:02] LABS: BASO % 0.5 % (0.0-1.0); EOS # 0.1 10^3/uL (0.0-0.5); EOS % 1.6 % (0.0-3.0); HEMATOCRIT 39.3 % (36.0-47.0); HEMOGLOBIN 12.9 g/dl (12.0-15.5); LYMPH # 2.2 10^3/uL (1.5-5.0); LYMPH % 34.6 % (24.0-44.0); MEAN CORPUSCULAR HEMOGLOBIN 29.2 pg (27.0-33.0); MEAN CORPUSCULAR HGB CONC 32.8 g/dl (32.0-36.5); MEAN CORPUSCULAR VOLUME 88.9 fl (80.0-96.0); MONO # 0.8 10^3/uL (0.0-0.8); MONO % 12.3 % (2.0-8.0); NEUTROPHILS # 3.1 10^3/uL (1.5-8.5); NEUTROPHILS % 49.6 % (36.0-66.0); PLATELET COUNT, AUTOMATED 272 10^3/uL (150-450); RED BLOOD COUNT 4.42 10^6/uL (4.00-5.40); WHITE BLOOD COUNT 6.3 10^3/uL (4.0-10.0)
[2020-09-02 10:28] LABS: ALBUMIN 3.9 GM/DL (3.2-5.2); ALT/SGPT 84 U/L (12-78); BILIRUBIN,TOTAL 0.6 MG/DL (0.2-1.0); BLOOD UREA NITROGEN 18 MG/DL (7-18); CALCIUM LEVEL 10.1 MG/DL (8.8-10.2); CARBON DIOXIDE LEVEL 29 MEQ/L (21-32); CHLORIDE LEVEL 105 MEQ/L (98-107); CREATININE FOR GFR 0.66 MG/DL (0.55-1.30); GLOMERULAR FILTRATION RATE > 60.0 (>39); GLUCOSE, FASTING 98 MG/DL (70-100); POTASSIUM SERUM 3.9 MEQ/L (3.5-5.1); SODIUM LEVEL 140 MEQ/L (136-145)
== END ==
LOC: M WUC 08:03
PROVIDERS: ATTEND Internal Medicine Medical Oncology
DX: C90.00 Multiple myeloma not having achieved remission (principal)

== ENCOUNTER → 2020-09-09 | Outpatient (CLI) | payer MEDICARE, BC, OTHER ==
[2020-09-09 11:24] LABS: BASO % 0.3 % (0.0-1.0); EOS # 0.1 10^3/uL (0.0-0.5); EOS % 2.3 % (0.0-3.0); HEMATOCRIT 38.4 % (36.0-47.0); HEMOGLOBIN 12.3 g/dl (12.0-15.5); LYMPH # 2.1 10^3/uL (1.5-5.0); LYMPH % 33.5 % (24.0-44.0); MEAN CORPUSCULAR HEMOGLOBIN 28.3 pg (27.0-33.0); MEAN CORPUSCULAR VOLUME 88.3 fl (80.0-96.0); MONO # 0.7 10^3/uL (0.0-0.8); MONO % 11.4 % (2.0-8.0); NEUTROPHILS # 3.2 10^3/uL (1.5-8.5); NEUTROPHILS % 50.9 % (36.0-66.0); PLATELET COUNT, AUTOMATED 294 10^3/uL (150-450); RED BLOOD COUNT 4.35 10^6/uL (4.00-5.40); WHITE BLOOD COUNT 6.2 10^3/uL (4.0-10.0)
[2020-09-09 12:08] LABS: ALBUMIN 3.8 GM/DL (3.2-5.2); ALT/SGPT 93 U/L (12-78); BILIRUBIN,TOTAL 0.6 MG/DL (0.2-1.0); BLOOD UREA NITROGEN 16 MG/DL (7-18); CALCIUM LEVEL 9.1 MG/DL (8.8-10.2); CARBON DIOXIDE LEVEL 28 MEQ/L (21-32); CHLORIDE LEVEL 104 MEQ/L (98-107); CREATININE FOR GFR 0.64 MG/DL (0.55-1.30); GLOMERULAR FILTRATION RATE > 60.0 (>39); GLUCOSE, FASTING 90 MG/DL (70-100); POTASSIUM SERUM 3.6 MEQ/L (3.5-5.1); SODIUM LEVEL 141 MEQ/L (136-145); TOTAL PROTEIN 7.2 GM/DL (6.4-8.2)
== END ==
LOC: M WUC 08:04
PROVIDERS: ATTEND Internal Medicine Medical Oncology
DX: C90.00 Multiple myeloma not having achieved remission (principal)

== ENCOUNTER → 2020-09-16 | Outpatient (CLI) | payer MEDICARE, BC, OTHER ==
[2020-09-16 10:36] LABS: BASO % 0.5 % (0.0-1.0); EOS # 0.1 10^3/uL (0.0-0.5); EOS % 1.9 % (0.0-3.0); HEMATOCRIT 39.6 % (36.0-47.0); HEMOGLOBIN 12.7 g/dl (12.0-15.5); LYMPH # 1.9 10^3/uL (1.5-5.0); LYMPH % 31.9 % (24.0-44.0); MEAN CORPUSCULAR HEMOGLOBIN 28.6 pg (27.0-33.0); MEAN CORPUSCULAR HGB CONC 32.1 g/dl (32.0-36.5); MEAN CORPUSCULAR VOLUME 89.2 fl (80.0-96.0); MONO # 0.7 10^3/uL (0.0-0.8); NEUTROPHILS # 3.1 10^3/uL (1.5-8.5); NEUTROPHILS % 52.7 % (36.0-66.0); PLATELET COUNT, AUTOMATED 326 10^3/uL (150-450); RED BLOOD COUNT 4.44 10^6/uL (4.00-5.40); WHITE BLOOD COUNT 5.9 10^3/uL (4.0-10.0)
[2020-09-16 11:10] LABS: ALBUMIN 3.8 GM/DL (3.2-5.2); ALT/SGPT 118 U/L (12-78); BILIRUBIN,TOTAL 0.4 MG/DL (0.2-1.0); BLOOD UREA NITROGEN 19 MG/DL (7-18); CALCIUM LEVEL 9.1 MG/DL (8.8-10.2); CARBON DIOXIDE LEVEL 27 MEQ/L (21-32); CHLORIDE LEVEL 105 MEQ/L (98-107); CREATININE FOR GFR 0.75 MG/DL (0.55-1.30); GLOMERULAR FILTRATION RATE > 60.0 (>39); GLUCOSE, FASTING 103 MG/DL (70-100); POTASSIUM SERUM 4.1 MEQ/L (3.5-5.1); SODIUM LEVEL 140 MEQ/L (136-145); TOTAL PROTEIN 7.1 GM/DL (6.4-8.2)
== END ==
LOC: M WUC 08:20
PROVIDERS: ATTEND Internal Medicine Medical Oncology
DX: C90.00 Multiple myeloma not having achieved remission (principal)

== ENCOUNTER → 2020-09-21 | Outpatient (CLI) | payer MEDICARE, BC, OTHER ==
--- NOTE | 2020-09-21 09:56 | REP ---
INDICATION: INCREASING LFTS. COMPARISON: None. TECHNIQUE: Transabdominal scanning. Complete abdominal sonography. FINDINGS: Scanning through the right upper quadrant the abdomen demonstrates a normal sized and walled gallbladder containing multiple mobile shadowing calculi. No pericholecystic fluid is seen. Common bile duct is normal measuring 0.4 cm in greatest diameter. No focal hepatic lesion is seen. The liver is not felt to be enlarged. There is no evidence of ascites. No pancreatic abnormality is seen. Renal cortical echogenicity pattern is normal in contours are smooth bilaterally. The right kidney measures 11.0 x 5.9 x 3.8 cm. There is a 0.9 cm lower pole cyst in the right kidney. Left renal dimensions are 10.4 x 4.5 x 4.6 cm. Scanning in the left upper quadrant shows a normal size homogeneous spleen measuring 9.4 cm in greatest diameter. A normal caliber aorta is seen without evidence of aneurysm. IMPRESSION: Cholelithiasis. 0.9 cm cyst right kidney. Otherwise negative complete abdominal sonography. <Electronically signed by Thai Rust > 09/21/20 0955
== END ==
LOC: M RAD 09:15
PROVIDERS: ATTEND Internal Medicine Medical Oncology
DX: R74.01 Elevation of levels of liver transaminase levels (principal)

== ENCOUNTER → 2020-09-23 | Outpatient (CLI) | payer MEDICARE, BC, OTHER ==
[2020-09-23 10:54] LABS: BASO # 0.1 10^3/uL (0.0-0.2); BASO % 0.7 % (0.0-1.0); EOS # 0.1 10^3/uL (0.0-0.5); HEMATOCRIT 39.3 % (36.0-47.0); HEMOGLOBIN 12.9 g/dl (12.0-15.5); LYMPH # 2.2 10^3/uL (1.5-5.0); MEAN CORPUSCULAR HEMOGLOBIN 28.8 pg (27.0-33.0); MEAN CORPUSCULAR HGB CONC 32.8 g/dl (32.0-36.5); MEAN CORPUSCULAR VOLUME 87.7 fl (80.0-96.0); MONO # 0.6 10^3/uL (0.0-0.8); MONO % 9.1 % (2.0-8.0); NEUTROPHILS % 56.2 % (36.0-66.0); PLATELET COUNT, AUTOMATED 396 10^3/uL (150-450); RED BLOOD COUNT 4.48 10^6/uL (4.00-5.40)
[2020-09-23 11:17] LABS: ALT/SGPT 83 U/L (12-78); BILIRUBIN,TOTAL 0.6 MG/DL (0.2-1.0); BLOOD UREA NITROGEN 17 MG/DL (7-18); CALCIUM LEVEL 9.4 MG/DL (8.8-10.2); CARBON DIOXIDE LEVEL 28 MEQ/L (21-32); CHLORIDE LEVEL 104 MEQ/L (98-107); CREATININE FOR GFR 0.74 MG/DL (0.55-1.30); GLOMERULAR FILTRATION RATE > 60.0 (>39); GLUCOSE, FASTING 108 MG/DL (70-100); POTASSIUM SERUM 3.9 MEQ/L (3.5-5.1); SODIUM LEVEL 137 MEQ/L (136-145); TOTAL PROTEIN 7.4 GM/DL (6.4-8.2)
== END ==
LOC: M WUC 08:05
PROVIDERS: ATTEND Internal Medicine Medical Oncology
DX: C90.00 Multiple myeloma not having achieved remission (principal)

== ENCOUNTER → 2020-09-30 | Outpatient (CLI) | payer MEDICARE, BC, OTHER ==
[2020-09-30 09:51] LABS: BASO % 0.7 % (0.0-1.0); EOS # 0.1 10^3/uL (0.0-0.5); EOS % 1.6 % (0.0-3.0); HEMATOCRIT 39.3 % (36.0-47.0); HEMOGLOBIN 13.1 g/dl (12.0-15.5); LYMPH # 1.8 10^3/uL (1.5-5.0); LYMPH % 28.7 % (24.0-44.0); MEAN CORPUSCULAR HEMOGLOBIN 28.9 pg (27.0-33.0); MEAN CORPUSCULAR HGB CONC 33.3 g/dl (32.0-36.5); MEAN CORPUSCULAR VOLUME 86.6 fl (80.0-96.0); MONO # 0.6 10^3/uL (0.0-0.8); NEUTROPHILS # 3.6 10^3/uL (1.5-8.5); PLATELET COUNT, AUTOMATED 333 10^3/uL (150-450); RED BLOOD COUNT 4.54 10^6/uL (4.00-5.40); WHITE BLOOD COUNT 6.1 10^3/uL (4.0-10.0)
[2020-09-30 10:26] LABS: ALT/SGPT 97 U/L (12-78); BILIRUBIN,TOTAL 0.5 MG/DL (0.2-1.0); BLOOD UREA NITROGEN 17 MG/DL (7-18); CALCIUM LEVEL 9.3 MG/DL (8.8-10.2); CARBON DIOXIDE LEVEL 27 MEQ/L (21-32); CHLORIDE LEVEL 103 MEQ/L (98-107); CREATININE FOR GFR 0.76 MG/DL (0.55-1.30); GLOMERULAR FILTRATION RATE > 60.0 (>39); GLUCOSE, FASTING 130 MG/DL (70-100); POTASSIUM SERUM 3.3 MEQ/L (3.5-5.1); SODIUM LEVEL 138 MEQ/L (136-145); TOTAL PROTEIN 7.3 GM/DL (6.4-8.2)
== END ==
LOC: M WUC 08:01
PROVIDERS: ATTEND Internal Medicine Medical Oncology
DX: C90.00 Multiple myeloma not having achieved remission (principal)

== ENCOUNTER → 2020-10-02 | Outpatient (CLI) | payer MEDICARE, BC ==
--- NOTE | 2020-10-02 14:12 | DEXAMM ---
INDICATION: COMPRESSION FX,R/O OSTEOPOROSIS. COMPARISON: Most recent comparison study June 26, 2015.. TECHNIQUE: Bone density was measured using dual-energy x-ray absorptionmetry (DEXA). FINDINGS: AP SPINE L1-L4 BMD 0.806 g/cm2 Young Adult T-Score -3.1 Age Matched Z-Score -1.4. LT FEMUR, TOTAL BMD 0.616 g/cm2 Young Adult T-Score -3.1 Age Matched Z-Score -1.6. LT NECK BMD 0.639 g/cm2 Young Adult T-Score -2.9 Age Matched Z-Score -1.1. RT FEMUR, TOTAL BMD 0.669 g/cm2 Young Adult T-Score -2.7 Age Matched Z-Score -1.2. RT NECK BMD 0.598 g/cm2 Young Adult T-Score -3.2 Age Matched Z-Score -1.4. IMPRESSION: There is osteoporosis of the spine. There is osteoporosis of the left hip. There is osteoporosis of the right hip. The density of the spine has decreased 18.3% since the initial exam on December 05, 2006. The density of the spine decreased 0.9% since most recent exam on June 26, 2015. The density of the left hip has decreased 21.0% since initial exam on December 05, 2006. The density of the left hip has decreased 13.4% since most recent exam on June 26, 2015. The density of the right hip has decreased 21.0% since the initial exam on December 05, 2006. The density of the right hip has decreased 18.1% since the most recent exam on June 27, 2015. FOLLOW-UP: Recommendation for the next bone density exam: 2 years. <Electronically signed by Thai Rust > 10/02/20 0297
== END ==
LOC: M WHC 12:13
PROVIDERS: ATTEND Internal Medicine Medical Oncology
DX: S32.009A Unspecified fracture of unspecified lumbar vertebra, initial encounter for closed fracture (principal); Y92.89 Other specified places as the place of occurrence of the external cause; Y93.9 Activity, unspecified; Y99.9 Unspecified external cause status

== ENCOUNTER → 2020-10-07 | Outpatient (CLI) | payer MEDICARE, BC ==
[2020-10-07 11:20] LABS: BASO % 0.6 % (0.0-1.0); EOS # 0.1 10^3/uL (0.0-0.5); EOS % 1.5 % (0.0-3.0); HEMATOCRIT 39.1 % (36.0-47.0); HEMOGLOBIN 12.7 g/dl (12.0-15.5); LYMPH # 2.1 10^3/uL (1.5-5.0); LYMPH % 37.9 % (24.0-44.0); MEAN CORPUSCULAR HGB CONC 32.5 g/dl (32.0-36.5); MEAN CORPUSCULAR VOLUME 89.3 fl (80.0-96.0); MONO # 0.5 10^3/uL (0.0-0.8); MONO % 9.6 % (2.0-8.0); NEUTROPHILS # 2.7 10^3/uL (1.5-8.5); NEUTROPHILS % 49.1 % (36.0-66.0); PLATELET COUNT, AUTOMATED 330 10^3/uL (150-450); RED BLOOD COUNT 4.38 10^6/uL (4.00-5.40); WHITE BLOOD COUNT 5.4 10^3/uL (4.0-10.0)
[2020-10-07 11:50] LABS: ALBUMIN 3.9 GM/DL (3.2-5.2); ALT/SGPT 99 U/L (12-78); BILIRUBIN,TOTAL 0.4 MG/DL (0.2-1.0); BLOOD UREA NITROGEN 17 MG/DL (7-18); CALCIUM LEVEL 9.1 MG/DL (8.8-10.2); CARBON DIOXIDE LEVEL 27 MEQ/L (21-32); CHLORIDE LEVEL 104 MEQ/L (98-107); CREATININE FOR GFR 0.77 MG/DL (0.55-1.30); GLOMERULAR FILTRATION RATE > 60.0 (>39); GLUCOSE, FASTING 121 MG/DL (70-100); SODIUM LEVEL 139 MEQ/L (136-145); TOTAL PROTEIN 7.1 GM/DL (6.4-8.2)
== END ==
LOC: M WUC 09:15
PROVIDERS: ATTEND Internal Medicine Medical Oncology
DX: C90.00 Multiple myeloma not having achieved remission (principal)

== ENCOUNTER → 2020-10-14 | Outpatient (CLI) | payer MEDICARE, OTHER, BC ==
[2020-10-14 10:50] LABS: BASO % 0.5 % (0.0-1.0); EOS # 0.1 10^3/uL (0.0-0.5); EOS % 1.8 % (0.0-3.0); HEMATOCRIT 38.2 % (36.0-47.0); HEMOGLOBIN 12.5 g/dl (12.0-15.5); LYMPH % 29.9 % (24.0-44.0); MEAN CORPUSCULAR HEMOGLOBIN 28.9 pg (27.0-33.0); MEAN CORPUSCULAR HGB CONC 32.7 g/dl (32.0-36.5); MEAN CORPUSCULAR VOLUME 88.2 fl (80.0-96.0); MONO # 0.8 10^3/uL (0.0-0.8); MONO % 12.4 % (2.0-8.0); NEUTROPHILS # 3.5 10^3/uL (1.5-8.5); NEUTROPHILS % 54.2 % (36.0-66.0); PLATELET COUNT, AUTOMATED 340 10^3/uL (150-450); RED BLOOD COUNT 4.33 10^6/uL (4.00-5.40); WHITE BLOOD COUNT 6.5 10^3/uL (4.0-10.0)
[2020-10-14 11:10] LABS: ALBUMIN 3.7 GM/DL (3.2-5.2); ALT/SGPT 81 U/L (12-78); BILIRUBIN,TOTAL 0.5 MG/DL (0.2-1.0); BLOOD UREA NITROGEN 15 MG/DL (7-18); CALCIUM LEVEL 9.4 MG/DL (8.8-10.2); CARBON DIOXIDE LEVEL 30 MEQ/L (21-32); CHLORIDE LEVEL 104 MEQ/L (98-107); CREATININE FOR GFR 0.65 MG/DL (0.55-1.30); GLOMERULAR FILTRATION RATE > 60.0 (>39); GLUCOSE, FASTING 96 MG/DL (70-100); POTASSIUM SERUM 4.3 MEQ/L (3.5-5.1); SODIUM LEVEL 142 MEQ/L (136-145); TOTAL PROTEIN 7.2 GM/DL (6.4-8.2)
== END ==
LOC: M WUC 09:11
PROVIDERS: ATTEND Internal Medicine Medical Oncology
DX: C90.00 Multiple myeloma not having achieved remission (principal)

== ENCOUNTER → 2020-10-21 | Outpatient (CLI) | payer MEDICARE, OTHER, BC ==
[2020-10-21 10:35] LABS: BASO % 0.5 % (0.0-1.0); EOS # 0.1 10^3/uL (0.0-0.5); EOS % 2.1 % (0.0-3.0); HEMATOCRIT 38.9 % (36.0-47.0); HEMOGLOBIN 12.9 g/dl (12.0-15.5); LYMPH # 2.1 10^3/uL (1.5-5.0); LYMPH % 34.2 % (24.0-44.0); MEAN CORPUSCULAR HEMOGLOBIN 29.3 pg (27.0-33.0); MEAN CORPUSCULAR HGB CONC 33.2 g/dl (32.0-36.5); MEAN CORPUSCULAR VOLUME 88.2 fl (80.0-96.0); MONO # 0.6 10^3/uL (0.0-0.8); MONO % 9.6 % (2.0-8.0); NEUTROPHILS # 3.2 10^3/uL (1.5-8.5); NEUTROPHILS % 52.6 % (36.0-66.0); PLATELET COUNT, AUTOMATED 362 10^3/uL (150-450); RED BLOOD COUNT 4.41 10^6/uL (4.00-5.40); WHITE BLOOD COUNT 6.1 10^3/uL (4.0-10.0)
[2020-10-21 11:03] LABS: ALT/SGPT 102 U/L (12-78); BILIRUBIN,TOTAL 0.6 MG/DL (0.2-1.0); BLOOD UREA NITROGEN 14 MG/DL (7-18); CARBON DIOXIDE LEVEL 30 MEQ/L (21-32); CHLORIDE LEVEL 104 MEQ/L (98-107); CREATININE FOR GFR 0.73 MG/DL (0.55-1.30); GLOMERULAR FILTRATION RATE > 60.0 (>39); GLUCOSE, FASTING 111 MG/DL (70-100); POTASSIUM SERUM 3.8 MEQ/L (3.5-5.1); SODIUM LEVEL 139 MEQ/L (136-145); TOTAL PROTEIN 7.2 GM/DL (6.4-8.2)
== END ==
LOC: M WUC 09:35
PROVIDERS: ATTEND Internal Medicine Medical Oncology
DX: C90.00 Multiple myeloma not having achieved remission (principal)

== ENCOUNTER → 2020-11-04 | Outpatient (CLI) | payer MEDICARE, BC, OTHER ==
[2020-11-04 11:43] LABS: BASO # 0.1 10^3/uL (0.0-0.2); BASO % 0.7 % (0.0-1.0); EOS # 0.2 10^3/uL (0.0-0.5); EOS % 2.8 % (0.0-3.0); HEMATOCRIT 39.1 % (36.0-47.0); HEMOGLOBIN 12.8 g/dl (12.0-15.5); LYMPH # 1.8 10^3/uL (1.5-5.0); LYMPH % 25.2 % (24.0-44.0); MEAN CORPUSCULAR HEMOGLOBIN 29.3 pg (27.0-33.0); MEAN CORPUSCULAR HGB CONC 32.7 g/dl (32.0-36.5); MEAN CORPUSCULAR VOLUME 89.5 fl (80.0-96.0); MONO # 0.6 10^3/uL (0.0-0.8); MONO % 8.4 % (2.0-8.0); NEUTROPHILS # 4.5 10^3/uL (1.5-8.5); NEUTROPHILS % 61.8 % (36.0-66.0); PLATELET COUNT, AUTOMATED 355 10^3/uL (150-450); RED BLOOD COUNT 4.37 10^6/uL (4.00-5.40); WHITE BLOOD COUNT 7.3 10^3/uL (4.0-10.0)
[2020-11-04 12:24] LABS: ALBUMIN 3.9 GM/DL (3.2-5.2); ALT/SGPT 67 U/L (12-78); BILIRUBIN,TOTAL 0.5 MG/DL (0.2-1.0); BLOOD UREA NITROGEN 14 MG/DL (7-18); CALCIUM LEVEL 9.5 MG/DL (8.8-10.2); CARBON DIOXIDE LEVEL 30 MEQ/L (21-32); CHLORIDE LEVEL 105 MEQ/L (98-107); CREATININE FOR GFR 0.66 MG/DL (0.55-1.30); GLOMERULAR FILTRATION RATE > 60.0 (>39); GLUCOSE, FASTING 109 MG/DL (70-100); IMMUNOGLOBULIN A 86.2 MG/DL (70-400); IMMUNOGLOBULIN G 704 MG/DL (681-1648); IMMUNOGLOBULIN M 29.1 MG/DL (40-230); SODIUM LEVEL 141 MEQ/L (136-145); TOTAL PROTEIN 7.4 GM/DL (6.4-8.2)
[2020-11-05 16:08] LABS: FREE KAPPA LIGHT CHAINS SERUM 11.7 mg/L (3.3-19.4); FREE LAMBDA LIGHT CHAINS SERUM 12.6 mg/L (5.7-26.3); KAPPA/LAMBDA RATIO SERUM 0.93 (0.26-1.65)
== END ==
LOC: M WUC 09:26
PROVIDERS: ATTEND Internal Medicine Medical Oncology
DX: D47.2 Monoclonal gammopathy (principal)

== ENCOUNTER → 2020-11-18 | Outpatient (CLI) | payer MEDICARE, BC, OTHER ==
[2020-11-18 12:11] LABS: BASO % 0.5 % (0.0-1.0); EOS # 0.1 10^3/uL (0.0-0.5); HEMATOCRIT 38.9 % (36.0-47.0); HEMOGLOBIN 12.8 g/dl (12.0-15.5); LYMPH # 1.8 10^3/uL (1.5-5.0); LYMPH % 30.4 % (24.0-44.0); MEAN CORPUSCULAR HEMOGLOBIN 29.6 pg (27.0-33.0); MEAN CORPUSCULAR HGB CONC 32.9 g/dl (32.0-36.5); MEAN CORPUSCULAR VOLUME 89.8 fl (80.0-96.0); MONO # 0.6 10^3/uL (0.0-0.8); MONO % 10.3 % (2.0-8.0); NEUTROPHILS # 3.4 10^3/uL (1.5-8.5); NEUTROPHILS % 56.1 % (36.0-66.0); PLATELET COUNT, AUTOMATED 354 10^3/uL (150-450); RED BLOOD COUNT 4.33 10^6/uL (4.00-5.40)
[2020-11-18 12:44] LABS: ALBUMIN 3.9 GM/DL (3.2-5.2); ALT/SGPT 111 U/L (12-78); BILIRUBIN,TOTAL 0.5 MG/DL (0.2-1.0); BLOOD UREA NITROGEN 16 MG/DL (7-18); CALCIUM LEVEL 9.5 MG/DL (8.8-10.2); CARBON DIOXIDE LEVEL 26 MEQ/L (21-32); CHLORIDE LEVEL 106 MEQ/L (98-107); CREATININE FOR GFR 0.65 MG/DL (0.55-1.30); GLOMERULAR FILTRATION RATE > 60.0 (>39); GLUCOSE, FASTING 99 MG/DL (70-100); IMMUNOGLOBULIN A 85.4 MG/DL (70-400); IMMUNOGLOBULIN G 747 MG/DL (681-1648); IMMUNOGLOBULIN M 30.4 MG/DL (40-230); POTASSIUM SERUM 3.8 MEQ/L (3.5-5.1); SODIUM LEVEL 140 MEQ/L (136-145); TOTAL PROTEIN 7.1 GM/DL (6.4-8.2)
[2020-11-19 13:58] LABS: ALBUMIN 4.46 GM/DL (3.29-5.55); ALBUMIN % 62.8 % (55.8-66.1); ALPHA-1-GLOBULIN % 3.6 % (2.9-4.9); ALPHA-1-GLOBULINS 0.26 GM/DL (0.17-0.41); ALPHA-2-GLOBULINS 0.94 GM/DL (0.42-0.99); ALPHA-2-GLOBULINS % 13.2 % (7.1-11.8); BETA-1-GLOBULINS 0.48 GM/DL (0.28-0.60); BETA-1-GLOBULINS % 6.7 % (4.7-7.2); BETA-2-GLOBULINS 0.35 GM/DL (0.19-0.55); BETA-2-GLOBULINS % 4.9 % (3.2-6.5); GAMMA GLOBULIN % 8.8 % (11.1-18.8); GAMMA GLOBULINS 0.62 GM/DL (0.65-1.58)
[2020-11-19 17:11] LABS: FREE KAPPA LIGHT CHAINS SERUM 12.8 mg/L (3.3-19.4); FREE LAMBDA LIGHT CHAINS SERUM 16.8 mg/L (5.7-26.3); KAPPA/LAMBDA RATIO SERUM 0.76 (0.26-1.65)
== END ==
LOC: M WUC 09:19
PROVIDERS: ATTEND Internal Medicine Medical Oncology
DX: C90.00 Multiple myeloma not having achieved remission (principal)

== ENCOUNTER → 2020-11-25 | Outpatient (CLI) | payer MEDICARE, BC, OTHER ==
[2020-11-25 12:03] LABS: BASO % 0.6 % (0.0-1.0); EOS # 0.2 10^3/uL (0.0-0.5); EOS % 2.8 % (0.0-3.0); HEMATOCRIT 38.7 % (36.0-47.0); HEMOGLOBIN 12.9 g/dl (12.0-15.5); LYMPH # 1.7 10^3/uL (1.5-5.0); LYMPH % 25.5 % (24.0-44.0); MEAN CORPUSCULAR HEMOGLOBIN 29.8 pg (27.0-33.0); MEAN CORPUSCULAR HGB CONC 33.3 g/dl (32.0-36.5); MEAN CORPUSCULAR VOLUME 89.4 fl (80.0-96.0); MONO # 0.6 10^3/uL (0.0-0.8); MONO % 8.4 % (2.0-8.0); NEUTROPHILS % 61.5 % (36.0-66.0); PLATELET COUNT, AUTOMATED 355 10^3/uL (150-450); RED BLOOD COUNT 4.33 10^6/uL (4.00-5.40); WHITE BLOOD COUNT 6.5 10^3/uL (4.0-10.0)
[2020-11-25 12:53] LABS: ALBUMIN 3.7 GM/DL (3.2-5.2); ALT/SGPT 81 U/L (12-78); BILIRUBIN,TOTAL 0.5 MG/DL (0.2-1.0); BLOOD UREA NITROGEN 20 MG/DL (7-18); CALCIUM LEVEL 9.7 MG/DL (8.8-10.2); CARBON DIOXIDE LEVEL 28 MEQ/L (21-32); CHLORIDE LEVEL 104 MEQ/L (98-107); CREATININE FOR GFR 0.72 MG/DL (0.55-1.30); GLOMERULAR FILTRATION RATE > 60.0 (>39); GLUCOSE, FASTING 123 MG/DL (70-100); IMMUNOGLOBULIN A 73.4 MG/DL (70-400); IMMUNOGLOBULIN G 703 MG/DL (681-1648); POTASSIUM SERUM 3.8 MEQ/L (3.5-5.1); SODIUM LEVEL 138 MEQ/L (136-145); TOTAL PROTEIN 6.9 GM/DL (6.4-8.2)
[2020-11-26 10:21] LABS: ALBUMIN 4.35 GM/DL (3.29-5.55); ALPHA-1-GLOBULIN % 3.3 % (2.9-4.9); ALPHA-1-GLOBULINS 0.23 GM/DL (0.17-0.41); ALPHA-2-GLOBULINS 0.91 GM/DL (0.42-0.99); ALPHA-2-GLOBULINS % 13.2 % (7.1-11.8); BETA-1-GLOBULINS 0.48 GM/DL (0.28-0.60); BETA-1-GLOBULINS % 6.9 % (4.7-7.2); BETA-2-GLOBULINS 0.35 GM/DL (0.19-0.55); GAMMA GLOBULIN % 8.6 % (11.1-18.8); GAMMA GLOBULINS 0.59 GM/DL (0.65-1.58)
[2020-11-27 18:10] LABS: FREE KAPPA LIGHT CHAINS SERUM 10.9 mg/L (3.3-19.4); FREE LAMBDA LIGHT CHAINS SERUM 13.5 mg/L (5.7-26.3); KAPPA/LAMBDA RATIO SERUM 0.81 (0.26-1.65)
== END ==
LOC: M WUC 09:35
PROVIDERS: ATTEND Internal Medicine Medical Oncology
DX: C90.00 Multiple myeloma not having achieved remission (principal)

== ENCOUNTER → 2020-12-02 | Outpatient (CLI) | payer MEDICARE, OTHER, BC ==
[2020-12-02 11:30] LABS: BASO # 0.1 10^3/uL (0.0-0.2); BASO % 0.7 % (0.0-1.0); EOS # 0.2 10^3/uL (0.0-0.5); EOS % 1.9 % (0.0-3.0); HEMATOCRIT 39.1 % (36.0-47.0); HEMOGLOBIN 12.8 g/dl (12.0-15.5); LYMPH # 2.1 10^3/uL (1.5-5.0); LYMPH % 25.6 % (24.0-44.0); MEAN CORPUSCULAR HEMOGLOBIN 29.3 pg (27.0-33.0); MEAN CORPUSCULAR HGB CONC 32.7 g/dl (32.0-36.5); MEAN CORPUSCULAR VOLUME 89.5 fl (80.0-96.0); MONO % 11.9 % (2.0-8.0); NEUTROPHILS # 4.7 10^3/uL (1.5-8.5); NEUTROPHILS % 58.4 % (36.0-66.0); PLATELET COUNT, AUTOMATED 345 10^3/uL (150-450); RED BLOOD COUNT 4.37 10^6/uL (4.00-5.40); WHITE BLOOD COUNT 8.1 10^3/uL (4.0-10.0)
[2020-12-02 12:26] LABS: ALBUMIN 3.7 GM/DL (3.2-5.2); ALT/SGPT 92 U/L (12-78); BILIRUBIN,TOTAL 0.5 MG/DL (0.2-1.0); BLOOD UREA NITROGEN 18 MG/DL (7-18); CALCIUM LEVEL 9.8 MG/DL (8.8-10.2); CARBON DIOXIDE LEVEL 27 MEQ/L (21-32); CHLORIDE LEVEL 104 MEQ/L (98-107); CREATININE FOR GFR 0.67 MG/DL (0.55-1.30); GLOMERULAR FILTRATION RATE > 60.0 (>39); GLUCOSE, FASTING 109 MG/DL (70-100); IMMUNOGLOBULIN A 82.5 MG/DL (70-400); IMMUNOGLOBULIN G 692 MG/DL (681-1648); IMMUNOGLOBULIN M 29.3 MG/DL (40-230); POTASSIUM SERUM 3.8 MEQ/L (3.5-5.1); SODIUM LEVEL 140 MEQ/L (136-145); TOTAL PROTEIN 7.1 GM/DL (6.4-8.2)
[2020-12-03 12:00] LABS: ALBUMIN 4.52 GM/DL (3.29-5.55); ALBUMIN % 63.6 % (55.8-66.1); ALPHA-1-GLOBULIN % 3.1 % (2.9-4.9); ALPHA-1-GLOBULINS 0.22 GM/DL (0.17-0.41); ALPHA-2-GLOBULINS 0.92 GM/DL (0.42-0.99); ALPHA-2-GLOBULINS % 12.9 % (7.1-11.8); BETA-1-GLOBULINS 0.48 GM/DL (0.28-0.60); BETA-1-GLOBULINS % 6.7 % (4.7-7.2); BETA-2-GLOBULINS 0.36 GM/DL (0.19-0.55); BETA-2-GLOBULINS % 5.1 % (3.2-6.5); GAMMA GLOBULIN % 8.6 % (11.1-18.8); GAMMA GLOBULINS 0.61 GM/DL (0.65-1.58)
[2020-12-03 18:12] LABS: FREE KAPPA LIGHT CHAINS SERUM 12.7 mg/L (3.3-19.4); FREE LAMBDA LIGHT CHAINS SERUM 14.6 mg/L (5.7-26.3); KAPPA/LAMBDA RATIO SERUM 0.87 (0.26-1.65)
== END ==
LOC: M WUC 09:16
PROVIDERS: ATTEND Internal Medicine Medical Oncology
DX: C90.00 Multiple myeloma not having achieved remission (principal)

== ENCOUNTER → 2020-12-09 | Outpatient (CLI) | payer MEDICARE, BC, OTHER ==
[2020-12-09 12:17] LABS: BASO % 0.7 % (0.0-1.0); EOS # 0.2 10^3/uL (0.0-0.5); EOS % 2.6 % (0.0-3.0); HEMATOCRIT 39.2 % (36.0-47.0); HEMOGLOBIN 12.9 g/dl (12.0-15.5); LYMPH # 1.7 10^3/uL (1.5-5.0); LYMPH % 28.9 % (24.0-44.0); MEAN CORPUSCULAR HEMOGLOBIN 29.4 pg (27.0-33.0); MEAN CORPUSCULAR HGB CONC 32.9 g/dl (32.0-36.5); MEAN CORPUSCULAR VOLUME 89.3 fl (80.0-96.0); MONO # 0.7 10^3/uL (0.0-0.8); MONO % 11.8 % (2.0-8.0); NEUTROPHILS # 3.2 10^3/uL (1.5-8.5); NEUTROPHILS % 55.3 % (36.0-66.0); PLATELET COUNT, AUTOMATED 304 10^3/uL (150-450); RED BLOOD COUNT 4.39 10^6/uL (4.00-5.40); WHITE BLOOD COUNT 5.9 10^3/uL (4.0-10.0)
[2020-12-09 12:55] LABS: ALBUMIN 3.7 GM/DL (3.2-5.2); ALT/SGPT 100 U/L (12-78); BILIRUBIN,TOTAL 0.5 MG/DL (0.2-1.0); BLOOD UREA NITROGEN 16 MG/DL (7-18); CALCIUM LEVEL 9.4 MG/DL (8.8-10.2); CARBON DIOXIDE LEVEL 26 MEQ/L (21-32); CHLORIDE LEVEL 105 MEQ/L (98-107); CREATININE FOR GFR 0.62 MG/DL (0.55-1.30); GLOMERULAR FILTRATION RATE > 60.0 (>39); GLUCOSE, FASTING 92 MG/DL (70-100); IMMUNOGLOBULIN G 729 MG/DL (681-1648); IMMUNOGLOBULIN M 27.1 MG/DL (40-230); POTASSIUM SERUM 3.7 MEQ/L (3.5-5.1); SODIUM LEVEL 141 MEQ/L (136-145); TOTAL PROTEIN 6.9 GM/DL (6.4-8.2)
== END ==
LOC: M WUC 09:37
PROVIDERS: ATTEND Internal Medicine Medical Oncology
DX: C90.00 Multiple myeloma not having achieved remission (principal)

== ENCOUNTER → 2020-12-11 | Outpatient (CLI) | payer MEDICARE, BC ==
--- NOTE | 2020-12-11 16:08 | REPMRS ---
Patient History The patient states she has not had a clinical breast exam in over a year. Patient has history of other cancer at age 70, has history of cancer in the left breast at age 61, and had previous chemotherapy. Family history of prostate cancer in brother, colorectal cancer in niece. Malignant ultrasound-guided core biopsy of the left breast, June 14, 2012. Chemotherapy. Radiation therapy. Moderna vaccines unsure of dates but had them both in the right arm. Pt is currently on chemotherapy for her multiple myloma. Patient states no breast complaints today. Patient has signed MRS History Sheet. Digital Woman Screen Mammo: December 11, 2020 - Exam #: [id number] Bilateral CC and MLO view(s) were taken. Technologist: Dee Dee Coburn, Glass Crusher Prior study comparison: December 10, 2019, bilateral digital woman screen mammo performed at [facility]. October 22, 2018, bilateral digital mammo screening bilat, performed at [facility]. FINDINGS: There are scattered fibroglandular densities. Screening. Digital screening (2D) mammography was performed bilaterally in the CC and MLO projections. Additionally, breast tomosynthesis (3D mammography) was performed bilaterally in the CC and MLO projections. Todays exam was compared to the prior exam/exams. By history, the patient has no complaints of a palpable breast abnormality or other significant breast complaints. The breasts are unchanged in size and shape. There are no ana-soft tissue densities or spiculated masses. There is no internal architectural distortion. Once again, stable benign appearing calcifications are seen.There are no suspicious ana-calcific clusters. IMPRESSION: BI-RADS Category 2- Benign Findings. There is no evidence of malignant alteration of the breasts. Followup examination recommended in one year. The Volpara volumetric breast density category is B, there are scattered areas of fibroglandular densities. This mammogram was read with the assistance of Aito BVJose SocialVest,an FDA approved computer aided detection system for mammography. Negative x-ray reports should not delay surgical consultation if a dominant or clinically suspicious mass is present. Not all breast cancers can be identified by mammography. Therefore, we recommend that you continue to perform regular breast self-examination and physical examination and then promptly contact your physician of any concerns or changes. Adenosis and dense breasts may obscure an underlying neoplasm. Assessment: BI-RADS/ACR category 2 mammogram. Benign Findings. Recommendation Routine screening mammogram of both breasts in 1 year. Electronically Signed By: Jose Mullins DO 12/11/20 0133
== END ==
LOC: M WHC 15:05
PROVIDERS: ATTEND Internal Medicine Medical Oncology
DX: Z12.31 Encounter for screening mammogram for malignant neoplasm of breast (principal)

== ENCOUNTER → 2020-12-16 | Outpatient (CLI) | payer MEDICARE, BC ==
[2020-12-16 12:04] LABS: BASO % 0.6 % (0.0-1.0); EOS # 0.2 10^3/uL (0.0-0.5); EOS % 2.3 % (0.0-3.0); HEMATOCRIT 38.7 % (36.0-47.0); HEMOGLOBIN 12.9 g/dl (12.0-15.5); LYMPH # 1.8 10^3/uL (1.5-5.0); LYMPH % 27.6 % (24.0-44.0); MEAN CORPUSCULAR HEMOGLOBIN 29.6 pg (27.0-33.0); MEAN CORPUSCULAR HGB CONC 33.3 g/dl (32.0-36.5); MEAN CORPUSCULAR VOLUME 88.8 fl (80.0-96.0); MONO # 0.7 10^3/uL (0.0-0.8); NEUTROPHILS # 3.9 10^3/uL (1.5-8.5); NEUTROPHILS % 57.9 % (36.0-66.0); PLATELET COUNT, AUTOMATED 336 10^3/uL (150-450); RED BLOOD COUNT 4.36 10^6/uL (4.00-5.40); WHITE BLOOD COUNT 6.7 10^3/uL (4.0-10.0)
[2020-12-16 12:30] LABS: ALBUMIN 3.7 GM/DL (3.2-5.2); ALT/SGPT 79 U/L (12-78); BILIRUBIN,TOTAL 0.4 MG/DL (0.2-1.0); BLOOD UREA NITROGEN 17 MG/DL (7-18); CALCIUM LEVEL 9.3 MG/DL (8.8-10.2); CARBON DIOXIDE LEVEL 29 MEQ/L (21-32); CHLORIDE LEVEL 105 MEQ/L (98-107); GLOMERULAR FILTRATION RATE > 60.0 (>39); GLUCOSE, FASTING 91 MG/DL (70-100); POTASSIUM SERUM 4.1 MEQ/L (3.5-5.1); SODIUM LEVEL 140 MEQ/L (136-145); TOTAL PROTEIN 7.2 GM/DL (6.4-8.2)
== END ==
LOC: M WUC 10:02
PROVIDERS: ATTEND Internal Medicine Medical Oncology
DX: C90.00 Multiple myeloma not having achieved remission (principal)

== ENCOUNTER → 2020-12-23 | Outpatient (REF) | payer MEDICARE, BC, OTHER ==
[2020-12-23 11:55] LABS: BASO % 0.5 % (0.0-1.0); EOS # 0.1 10^3/uL (0.0-0.5); EOS % 1.6 % (0.0-3.0); HEMATOCRIT 39.9 % (36.0-47.0); HEMOGLOBIN 13.2 g/dl (12.0-15.5); LYMPH # 1.3 10^3/uL (1.5-5.0); MEAN CORPUSCULAR HEMOGLOBIN 29.2 pg (27.0-33.0); MEAN CORPUSCULAR HGB CONC 33.1 g/dl (32.0-36.5); MEAN CORPUSCULAR VOLUME 88.3 fl (80.0-96.0); MONO # 0.6 10^3/uL (0.0-0.8); MONO % 9.5 % (2.0-8.0); NEUTROPHILS # 4.2 10^3/uL (1.5-8.5); NEUTROPHILS % 67.4 % (36.0-66.0); PLATELET COUNT, AUTOMATED 321 10^3/uL (150-450); RED BLOOD COUNT 4.52 10^6/uL (4.00-5.40); WHITE BLOOD COUNT 6.2 10^3/uL (4.0-10.0)
[2020-12-23 14:07] LABS: ALBUMIN 3.7 GM/DL (3.2-5.2); ALT/SGPT 73 U/L (12-78); BILIRUBIN,TOTAL 0.5 MG/DL (0.2-1.0); BLOOD UREA NITROGEN 19 MG/DL (7-18); CALCIUM LEVEL 9.5 MG/DL (8.8-10.2); CARBON DIOXIDE LEVEL 25 MEQ/L (21-32); CHLORIDE LEVEL 103 MEQ/L (98-107); CREATININE FOR GFR 0.79 MG/DL (0.55-1.30); GLOMERULAR FILTRATION RATE > 60.0 (>39); GLUCOSE, FASTING 157 MG/DL (70-100); POTASSIUM SERUM 3.7 MEQ/L (3.5-5.1); SODIUM LEVEL 139 MEQ/L (136-145); TOTAL PROTEIN 7.1 GM/DL (6.4-8.2)
== END ==
LOC: M WUC 11:19
PROVIDERS: ATTEND Internal Medicine Medical Oncology
DX: C90.00 Multiple myeloma not having achieved remission (principal)

== ENCOUNTER → 2020-12-30 | Outpatient (CLI) | payer MEDICARE, BC, OTHER ==
[2020-12-30 11:51] LABS: BASO % 0.6 % (0.0-1.0); EOS # 0.1 10^3/uL (0.0-0.5); HEMATOCRIT 40.5 % (36.0-47.0); HEMOGLOBIN 13.3 g/dl (12.0-15.5); LYMPH % 30.8 % (24.0-44.0); MEAN CORPUSCULAR HEMOGLOBIN 29.2 pg (27.0-33.0); MEAN CORPUSCULAR HGB CONC 32.8 g/dl (32.0-36.5); MEAN CORPUSCULAR VOLUME 88.8 fl (80.0-96.0); MONO # 0.7 10^3/uL (0.0-0.8); MONO % 10.2 % (2.0-8.0); NEUTROPHILS # 3.5 10^3/uL (1.5-8.5); NEUTROPHILS % 55.5 % (36.0-66.0); PLATELET COUNT, AUTOMATED 346 10^3/uL (150-450); RED BLOOD COUNT 4.56 10^6/uL (4.00-5.40); WHITE BLOOD COUNT 6.4 10^3/uL (4.0-10.0)
[2020-12-30 12:19] LABS: ALBUMIN 3.9 GM/DL (3.2-5.2); ALT/SGPT 79 U/L (12-78); BILIRUBIN,TOTAL 0.5 MG/DL (0.2-1.0); BLOOD UREA NITROGEN 18 MG/DL (7-18); CALCIUM LEVEL 9.7 MG/DL (8.8-10.2); CARBON DIOXIDE LEVEL 30 MEQ/L (21-32); CHLORIDE LEVEL 103 MEQ/L (98-107); CREATININE FOR GFR 0.69 MG/DL (0.55-1.30); GLOMERULAR FILTRATION RATE > 60.0 (>39); GLUCOSE, FASTING 107 MG/DL (70-100); POTASSIUM SERUM 4.4 MEQ/L (3.5-5.1); SODIUM LEVEL 141 MEQ/L (136-145); TOTAL PROTEIN 7.3 GM/DL (6.4-8.2)
== END ==
LOC: M WUC 09:58
PROVIDERS: ATTEND Internal Medicine Medical Oncology
DX: C90.00 Multiple myeloma not having achieved remission (principal)

== ENCOUNTER → 2021-01-06 | Outpatient (CLI) | payer MEDICARE, BC, OTHER ==
[2021-01-06 12:42] LABS: BASO % 0.6 % (0.0-1.0); EOS # 0.2 10^3/uL (0.0-0.5); EOS % 3.2 % (0.0-3.0); HEMATOCRIT 40.8 % (36.0-47.0); HEMOGLOBIN 13.4 g/dl (12.0-15.5); LYMPH # 2.1 10^3/uL (1.5-5.0); LYMPH % 30.5 % (24.0-44.0); MEAN CORPUSCULAR HEMOGLOBIN 29.5 pg (27.0-33.0); MEAN CORPUSCULAR HGB CONC 32.8 g/dl (32.0-36.5); MEAN CORPUSCULAR VOLUME 89.7 fl (80.0-96.0); MONO # 0.7 10^3/uL (0.0-0.8); MONO % 9.5 % (2.0-8.0); NEUTROPHILS # 3.8 10^3/uL (1.5-8.5); NEUTROPHILS % 55.2 % (36.0-66.0); PLATELET COUNT, AUTOMATED 343 10^3/uL (150-450); RED BLOOD COUNT 4.55 10^6/uL (4.00-5.40); WHITE BLOOD COUNT 6.9 10^3/uL (4.0-10.0)
[2021-01-06 13:41] LABS: ALBUMIN 3.9 GM/DL (3.2-5.2); ALT/SGPT 82 U/L (12-78); BILIRUBIN,TOTAL 0.5 MG/DL (0.2-1.0); BLOOD UREA NITROGEN 16 MG/DL (7-18); CALCIUM LEVEL 9.7 MG/DL (8.8-10.2); CARBON DIOXIDE LEVEL 28 MEQ/L (21-32); CHLORIDE LEVEL 104 MEQ/L (98-107); CREATININE FOR GFR 0.76 MG/DL (0.55-1.30); GLOMERULAR FILTRATION RATE > 60.0 (>39); GLUCOSE, FASTING 137 MG/DL (70-100); POTASSIUM SERUM 4.4 MEQ/L (3.5-5.1); SODIUM LEVEL 139 MEQ/L (136-145); TOTAL PROTEIN 7.3 GM/DL (6.4-8.2)
== END ==
LOC: M WUC 09:55
PROVIDERS: ATTEND Internal Medicine Medical Oncology
DX: C90.00 Multiple myeloma not having achieved remission (principal)

== ENCOUNTER 2021-01-18 06:17 | Emergency (ER) | payer MEDICARE, BC ==
[~2021-01-18] VITALS: Ht 154.9 cm; Wt 67.7 kg
[2021-01-18] MEDS ORDERED: ONDANSETRON 4MG/2ML VIAL IV ONE (08:30)
[2021-01-18 08:48] LABS: BASO % 0.5 % (0.0-1.0); EOS % 0.5 % (0.0-3.0); HEMATOCRIT 39.4 % (36.0-47.0); HEMOGLOBIN 13.2 g/dl (12.0-15.5); LYMPH # 1.2 10^3/uL (1.5-5.0); LYMPH % 13.6 % (24.0-44.0); MEAN CORPUSCULAR HEMOGLOBIN 28.8 pg (27.0-33.0); MEAN CORPUSCULAR HGB CONC 33.5 g/dl (32.0-36.5); MEAN CORPUSCULAR VOLUME 85.8 fl (80.0-96.0); MONO # 0.6 10^3/uL (0.0-0.8); MONO % 6.7 % (2.0-8.0); NEUTROPHILS # 6.8 10^3/uL (1.5-8.5); NEUTROPHILS % 77.8 % (36.0-66.0); PLATELET COUNT, AUTOMATED 317 10^3/uL (150-450); RED BLOOD COUNT 4.59 10^6/uL (4.00-5.40); WHITE BLOOD COUNT 8.8 10^3/uL (4.0-10.0)
--- OUTSIDE RECORDS SUMMARY | 2021-01-18 08:50 | CCD ---
Author Author Fly Evans MD [facility] Organization Fly Evans MD [facility] Address [address] [facility] [address] [place] [address] Phone Care Team Providers Care Dental Mechanic Name Role Phone Hermann Decker MD PP [phone] Alverto OD, Mil Unavailable [phone] Matthew DO, Casey Unavailable [phone] Reason for Referral No Reason for Referral Recorded Problems Includes: Active, inactive, and resolved Problems All Visits Onset Date - Time Resolved Date - Time Provider Co ndition Status Chalazion 08/18/2020 - 12:00AM Fly Evans MD, FACS Active Note: right lower eyelid Chalazion Left Lower Eyelid 08/18/2020 - 12:00AM Fly Evans MD, FACS Active Cataract Senile Nuclear 01/10/2017 - 12:00AM Casey Morales [facility] DO Active Borderline Glaucoma Ocular Hypertension Both Eyes 05/20/2016 - 1 2:00AM Casey Castro DO Active Blepharitis Squamous 05/20/2016 - 12:00AM Casey daniels DO Active Squamous blepharitis right lower eyelid 05/20/2016 - 12:00AM Casey Castro DO Active Squamous blepharitis left upper eyelid 05/20/2016 - 12:00AM Casey Castro DO Active Squamous blepharitis left lower eyelid 05/20/2016 - 12:00AM Casey Castro DO Active Dry Eye Syndrome Both Eyes 05/20/2016 - 12:00AM Artur Castro DO Active Vitreous Disorders Degeneration 05/20/2016 - 12:00AM M bravo Castro DO Active Plan of Treatment Pending Tests Order Diagnosis Results Due Ordering Provi debby Testing Ordered - Visual Field Visual Field 24-2 Ocular hyperten raheem, bilateral 10/30/20 Casey Castro DO Testing Ordered - Pachymetry Pachymetry Ocular hypertension, bila teral 10/30/20 Casey Castro DO Future Appointments Date Time Location Provider 7 Month Follow-Up 05/11/2021 10:00AM Fly Evans MD [facility] Fly Saba MD, FACS Assessments Includes: Assessments for all patient encounters Findings Encounter Date Assessment of a chalazion was seen in the left lower e yelid 8 Week Follow-Up with Fly Evans MD, FACS 10/14/2020 Chalazion 8 Week Follow-Up with Fly morales MD, FACS 10/14/2020 Squamous blepharitis right upper eyelid , right lower eyelid, left upper eyelid, left lower eyelid 8 Week Follow-Up with Fly Evans MD, FACS Assessment of a chalazion was seen in the left lower e yelid TRIAGE NON URGENT with Fly Evans MD, FACS 08/18/2020 Chalazion TRIAGE NON URGENT with Fly alexandra MD, FACS 08/18/2020 Squamous blepharitis right upper eyelid , right lower eyelid, left upper eyelid, left lower eyelid TRIAGE NON URGENT with Fly Evans MD, FACS Borderline glaucoma ocular hypertension in both eyes 1 Year Follow-Up with Casey Castro DO 12/05/2018 Dry eye syndrome of both eyes 1 Year Follow-Up with Casey Castro DO 12/05/2018 Nuclear senile cataract 1 Year Follow-Up with Casey neely DO 12/05/2018 Borderline glaucoma ocular hypertension in both eyes 1 0 Month Follow-Up with Casey Castro DO 11/21/2017 Dry eye syndrome of both eyes 10 Month Follow-Up with Artur Castro DO 11/21/2017 Nuclear senile cataract 10 Month Follow-Up with Casey daniels DO 11/21/2017 Borderline glaucoma ocular hypertension in both eyes 6 Month Follow-Up with Casey Castro DO 01/10/2017 Dry eye syndrome of both eyes 6 Month Follow-Up with Casey Castro DO 01/10/2017 Nuclear senile cataract 6 Month Follow-Up with Casey contreras DO 01/10/2017 Vitreous degeneration 6 Month Follow-Up with Casey Guillen in DO 01/10/2017 Borderline glaucoma ocular hypertension in both eyes I OP CHECK with Casey Castro DO 07/07/2016 Borderline glaucoma ocular hypertension in both eyes N EW PATIENT WITH REFERRAL with Casey Castro DO 05/20/2016 Dry eye syndrome of both eyes NEW PATIENT WITH REFERRA L with Casey Castro DO 05/20/2016 Squamous blepharitis NEW PATIENT WITH REFERRAL with Casey Castro DO 05/20/2016 Vitreous degeneration NEW PATIENT WITH REFERRAL with Casey Castro DO 05/20/2016 Instructions Instructions not supported for this document typeNo Instructions Recorded Medical Equipment - Implanted Devices Includes: Current and historical DevicesNo Medical Equipment Recorded Medications Includes: Current and historical Medications Current Medications (continue as prescribed) Acyclovir 400 MG Oral Tablet 08/18/2020 Provider: Diagnosis: Dexamethasone 4 MG Oral Tablet 08/18/2020 Provider: Diagnosis: Once a week with Chemotherapy Regiman Benadryl Allergy 25 MG Oral Tablet 08/18/2020 Provi debby: Diagnosis: TobraDex 0.3-0.1% Ophthalmic Suspension 08/18/2020 Provider: Fly Evans MD, FACS Diagnosis: Chalazion right lowe r eyelid One drop four times a day in both eyes Caltrate 600+D3 Soft [id number] Oral Tablet Chewable Provider: Diagnosis: Centrum Silver Oral Tablet 05/20/2016 Provider: Diagnosis: Aspirin Adult Low Dose 81MG Oral Tablet Delayed Release 05/04 Provider: Diagnosis: HydroCHLOROthiazide 25MG Oral Tablet 05/20/2016 Pro vider: Diagnosis: Lisinopril 5MG Oral Tablet 05/20/2016 Provider: Diagnosis: Fish Oil 1400MG Oral Tablet 05/20/2016 Provider: Diagnosis: Medications Administered Includes: Administered Medications in patient's chartNo Administered Medications Recorded Vital Signs Includes: Vital Signs from 10/29/2019 through 10/28/2020No Vital Signs Recorded For Specified Dates Results Includes: Results from 10/29/2019 through 10/28/2020No Results Recorded For Specified Dates History of Present Illness History of Present Illness not supported for this document typeNo History of Present Illness Recorded Social History Description Last Updated No tobacco use 10/14/2020 Tobacco non-user 10/14/2020 No consumption of alcohol 05/20/2016 Not using drugs 05/20/2016 Smoking status : Never smoker 05/20/2016 Procedures and Surgical History Includes: Procedures from 10/29/2019 through 10/28/2020 Procedures Code Diagnosis Performing Provider Service Location Service Date Intermediate Eye Exam Established Patient [id number] Chalazion right lower eyelid, Chalazion left lower eyelid, Squamous blepharitis right upper eyelid Fly Evans MD, GERRI Evans MD [facility] 08/18/2020 Surgical History Last Updated Surgical / procedural history right david t bone spur, left knee, appendectomy, growth at the end of the colon, breast cancer 2013 05/20/2016 Medical History Includes: Medical History in patient's chart Description Last Updated No recent change in medical history 10/14/2020 Reported medical history Left Breast ca ncer 2012, Multiple Myeloma Lymphoma 02/2020, Chemotherapy started 04/2310/14/2020 Currently wearing eyeglasses 05/20/2016 Family History Includes: Family History in patient's chart Description Last Updated Maternal history of arthritis 10/14/2020 Paternal history of arthritis 10/14/2020 Fraternal history of family history of cancer 05/20/19 Maternal history of stroke/cerebrovascular accident Review of Systems Review of Systems not supported for this document typeNo Review of Systems Recorded Mental Status Mental Status not supported for this document type Description Oriented to time, place, and person Functional Status Functional Status not supported for this document typeNo Functional Status Recorded Physical Exam Physical Exam not supported for this document typeNo Physical Exam Recorded Immunizations Includes: Immunizations in patient's chartNo Immunizations Recorded Allergies Includes: Active, inactive, and resolved Allergies Substance Type Reaction Onset Date - Time Resolved Date - Ti me Status Codeine Allergy 05/20/2016 - 12:00AM Acti ve Encounters Includes: Encounters from 10/29/2019 through 10/28/2020 Encounter Provider Location Date Check-In Time Check-Out Time D iagnosis 8 Week Follow-Up Fly Evans MD, GERRI Garcia [facility] 10/14/2020 8:23AM 8:56AM Chalazion, Blepharit is Squamous, Assessment of Chalazion Left Lower Eyelid TRIAGE NON URGENT Fly Evans MD, FACS Fly Evans MD [facility] 08/18/2020 12:19PM 1:19PM Chalazion, Blepharit is Squamous, Assessment of Chalazion Left Lower Eyelid Insurance Includes: Active Insurance Policies Plan Name Member ID Group # Subscriber Relationship Effective Da lo 1 - Medicare Part B [facility] ([facility] [id number] Trang bynum Self 2 - [facility] Employees ([employer]) - [employer] [id number] Trang Falcon Self Advance Directives Includes: Current Advance DirectivesNo Advance Directives Recorded Health Concerns Includes: Active Health ConcernsNo Active Health Concerns Recorded Goals Includes: Active GoalsNo Active Goals Recorded Interventions Includes: Interventions for active GoalsNo Interventions Recorded Evaluations & Outcomes Includes: Evaluations & Outcomes for active GoalsNo Outcomes Recorded
--- OUTSIDE RECORDS SUMMARY | 2021-01-18 08:50 | CCD ---
Author Author Fly Evans MD [facility] Organization Fly Evans MD [facility] Address [address] [place] [address] Phone Care Team Providers Care Lime Filter Operator Name Role Phone Hermann Decker MD PP [phone] Alverto OD, Mil Unavailable [phone] Matthew DO, Casey Unavailable [phone] Reason for Referral No Reason for Referral Recorded Problems Includes: Active, inactive, and resolved Problems All Visits Onset Date - Time Resolved Date - Time Provider Co ndition Status Chalazion 08/18/2020 - 12:00AM Fly Evans MD, FACS Active Note: right lower eyelid Chalazion Left Lower Eyelid 08/18/2020 - 12:00AM Fly Eavns MD, FACS Active Cataract Senile Nuclear 01/10/2017 - 12:00AM Casey Morales [facility] DO Active Borderline Glaucoma Ocular Hypertension [...] Active Vitreous Disorders Degeneration 05/20/2016 - 12:00AM Doug Castro DO Active Plan of Treatment Pending Tests Order Diagnosis Results Due Ordering Provi debby Testing Ordered - Visual Field Visual Field 24-2 Ocular hyperten raheem, bilateral 10/30/20 Casey Castro DO Testing Ordered - Pachymetry Pachymetry Ocular hypertension, bila teral 10/30/20 Casey Castro DO Future Appointments Date Time Location Provider 7 Month Follow-Up 05/11/2021 10:00AM Fly Evans MD [facility] Jacek Saba MD, FACS Assessments Includes: Assessments for [...] Vitreous degeneration 6 Month Follow-Up with Casey Cumminstrey in DO 01/10/2017 Borderline glaucoma ocular hypertension [...] day in both eyes Caltrate 600+D3 Soft [id number] Oral Tablet Chewable Provider: Diagnosis: Centrum Silver [...] Recorded Vital Signs Includes: Vital Signs from 12/08/2019 through 12/07/2020No Vital Signs Recorded For Specified Dates Results Includes: Results from 12/08/2019 through 12/07/2020No Results Recorded For Specified Dates History of Present Illness History of Present Illness not supported for this document typeNo History of Present Illness Recorded Social History Description Last Updated Tobacco non-user 08/18/2020 No consumption of alcohol 08/18/2020 No tobacco use 08/18/2020 Not using drugs 08/18/2020 Smoking status : Never smoker 08/18/2020 Procedures and Surgical History Includes: Procedures from 12/08/2019 through 12/07/2020 Procedures Code Diagnosis Performing Provider Service Location Service Date Intermediate Eye Exam Established Patient [id number] Chalazion right lower eyelid, Chalazion left lower eyelid, Squamous blepharitis right upper eyelid Fly Evans MD, FACS Fly Evans MD [facility] 08/18/2020 Surgical History Last Updated Surgical / procedural history right david t bone spur, left knee, appendectomy, growth at the end of the colon, 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08/18/2020 Medical History Includes: Medical History in patient's chart Description Last Updated Recent change in medical history Multip le Myeloma Lymphoma 02/2020, Chemotherapy started 04/2308/18/2020 Reported medical history Left Breast ca ncer 2012, Multiple Myeloma Lymphoma 02/2020, Chemotherapy started 04/2308/18/2020 Currently wearing eyeglasses 08/18/2020 Family History Includes: Family History in patient's chart Description Last Updated Fraternal history of family history of cancer 08/19/19 Maternal history of arthritis 08/18/2020 Maternal history of stroke/cerebrovascular accident Paternal history of arthritis 08/18/2020 Review of Systems Review of Systems not [...] 12:00AM Acti ve Encounters Includes: Encounters from 12/08/2019 through 12/07/2020 Encounter Provider Location Date Check-In Time Check-Out Time D iagnosis 8 Week Follow-Up Fly Evans MD, FACS Fly Garcia [facility] 10/14/2020 8:23AM 8:56AM Chalazion, Blepharit is Squamous, Assessment of Chalazion Left Lower Eyelid TRIAGE NON URGENT Fly Evans MD, FACS Fly Evans MD [facility] 08/18/2020 12:19PM 1:19PM Chalazion, Blepharit is Squamous, Assessment of Chalazion Left Lower Eyelid Insurance Includes: Active Insurance Policies Plan Name Member ID Group # Subscriber Relationship Effective Da lo 1 - Medicare Part B [facility] ([place]) [id number] Trang bynum Self 2 - [facility] Employees ([employer]) - [employer] [id number] Trang Ball Advance Directives Includes: Current Advance DirectivesNo Advance Directives Recorded Health Concerns Includes: Active Health ConcernsNo Active Health Concerns Recorded Goals Includes: Active GoalsNo Active Goals Recorded Interventions Includes: Interventions for active GoalsNo Interventions Recorded Evaluations & Outcomes Includes: Evaluations & Outcomes for active GoalsNo Outcomes Recorded
--- OUTSIDE RECORDS SUMMARY | 2021-01-18 08:50 | CCD ---
Author Author [facility] Organization [facility] Address Unknown Phone Unavailable Care Team Providers Care Strategy Director Name Role Phone [facility], [facility], PA-C Unavailable Unavailabl e Fish, Sarina [facility], PA-C Unavailable Unavailabl e Fish, [facility], PA-C Unavailable Unavailabl e Fish, [facility], PA-C Unavailable Unavailabl e Fish, [facility], PA-C Unavailable Unavailabl e Fish, [facility], PA-C Unavailable Unavailabl e Fish, [facility], PA-C Unavailable Unavailabl e Fish, [facility], PA-C Unavailable Unavailabl e Fish, [facility], PA-C Unavailable Unavailabl e Fish, [facility], PA-C Unavailable Unavailabl e Fish, [facility], PA-C Unavailable Unavailabl e Fish, [facility], PA-C Unavailable Unavailabl e Fish, [facility], PA-C Unavailable Unavailabl e Fish, [facility], PA-C Unavailable Unavailabl e Fish, [facility], PA-C Unavailable Unavailabl e Fish, [facility], PA-C Unavailable Unavailabl e Fish, [facility], PA-C Unavailable Unavailabl e Fish, [facility], PA-C Unavailable Unavailabl e Fish, [facility], PA-C Unavailable Unavailabl e Fish, [facility], PA-C Unavailable Unavailabl e Fish, [facility], [facility] Unavailable Unavailabl e Fish, Sarina Pearson [facility], PA-C Unavailable Unavailabl e Fish, Sarina Pearson [facility], PA-C Unavailable Unavailabl e Fish, Sarina Pearson [facility], PA-C Unavailable Unavailabl e Fish, Sarina Pearson [facility], PA-C Unavailable Unavailabl e Fish, Sarina Pearson [facility], PA-C Unavailable Unavailabl e Fish, Sarina Pearson [facility], PA-C Unavailable Unavailabl e Fish, Sarina Pearson [facility], PA-C Unavailable Unavailabl e Fish, Sarina Pearson [facility], PA-C Unavailable Unavailabl e Fish, Sarina Pearson [facility], PA-C Unavailable Unavailabl e Fish, Sarina Pearson [facility], PA-C Unavailable Unavailabl e Fish, Sarina Pearson [facility], PA-C Unavailable Unavailabl e Fish, Sarina Pearson [facility], [facility]-C Unavailable Unavailabl e Fish, Sarina Pearson [facility], PA-C Unavailable Unavailabl e Fish, Sarina Pearson [facility], PA-C Unavailable Unavailabl e Last Rollins Unavailable Unavailable Aquino Saba, Brittany Bill MD, FACS Unavailable Unavailable Aquino Saba, Brittany Bill MD, FACS Unavailable Unavailable Aquino Saba, Brittany Bill MD, FACS Unavailable Unavailable Aquino Saba, Brittany Bill MD, FACS Unavailable Unavailable Aquino Saba, Brittany Bill MD, FACS Unavailable Unavailable Aquino Saba, Brittany Bill MD, FACS Unavailable Unavailable Aquino Saba, Brittany Bill MD, FACS Unavailable Unavailable Aquino Saba, Brittany Bill MD, FACS Unavailable Unavailable Aquino Saba, Brittany Bill MD, FACS Unavailable Unavailable Aquino Saba, Brittany Bill MD, FACS Unavailable Unavailable Aquino Saba, Brittany Bill MD, FACS Unavailable Unavailable Aquino Saba, Brittany Bill MD, FACS Unavailable Unavailable Aquino Saba, Brittany Bill MD, FACS Unavailable Unavailable Aquino Saba, Brittany Bill MD, FACS Unavailable Unavailable Aquino Saba, Brittany Bill MD, FACS Unavailable Unavailable Aquino Saba, Brittany Bill MD, FACS Unavailable Unavailable Aquino Saba, Brittany Bill MD, FACS Unavailable Unavailable Aquino Saba, Brittany Bill MD, FACS Unavailable Unavailable Aquino Saba, Brittany Bill MD, FACS Unavailable Unavailable Aquino Saba, Brittany Bill MD, FACS Unavailable Unavailable Aquino Saba, Brittany Bill MD, FACS Unavailable Unavailable Aquino Saba, Brittany Bill MD, FACS Unavailable Unavailable Aquino Saba, Brittany Bill MD, FACS Unavailable Unavailable Aquino Saba, Brittany Bill MD, FACS Unavailable Unavailable Aquino Saba, Brittany Bill MD, FACS Unavailable Unavailable Aquino Saba, Brittany Bill MD, FACS Unavailable Unavailable Aquino Saba, Brittany Bill MD, FACS Unavailable Unavailable Aquino Saba, Brittany Bill MD, FACS Unavailable Unavailable Aquino Saba, Brittany Bill MD, FACS Unavailable Unavailable Aquino Saba, Brittany Bill MD, FACS Unavailable Unavailable Aquino Saba, Brittany Bill MD, FACS Unavailable Unavailable Aquino Saba, Brittany Bill MD, FACS Unavailable Unavailable Aquino Saba, Brittany Bill MD, FACS Unavailable Unavailable Aquino Saba, Brittany Bill MD, FACS Unavailable Unavailable Aquino Saba, Brittany Bill MD, FACS Unavailable Unavailable Aquino Saba, Brittany Bill MD, FACS Unavailable Unavailable Aquino Saba, Brittany Bill MD, FACS Unavailable Unavailable Aquino Saba, Brittany Bill MD, FACS Unavailable Unavailable Aquino Saba, Brittany Bill MD, FACS Unavailable Unavailable Re-disclosure Warning The records that you are about to access may contain information from federally-assisted alcohol or drug abuse programs. If such information is present, then the following federally mandated warning applies: This information has been disclosed to you from records protected by federal confidentiality rules (42 CFR part 2). The federal rules prohibit you from making any further disclosure of this information unless further disclosure is expressly permitted by the written consent of the person to whom it pertains or as otherwise permitted by 42 CFR part 2. A general authorization for the release of medical or other information is NOT sufficient for this purpose. The Federal rules restrict any use of the information to criminally investigate or prosecute any alcohol or drug abuse patient.The records that you are about to access may contain highly sensitive health information, the redisclosure of which is protected by Article 27-F of the [facility] Public Health law. If you continue you may have access to information: Regarding HIV / AIDS; Provided by facilities licensed or operated by the [facility] Office of Mental Health; or Provided by the [facility] Office for People With Developmental Disabilities. If such information is present, then the following [facility] mandated warning applies: This information has been disclosed to you from confidential records which are protected by state law. State law prohibits you from making any further disclosure of this information without the specific written consent of the person to whom it pertains, or as otherwise permitted by law. Any unauthorized further disclosure in violation of state law may result in a fine or usp sentence or both. A general authorization for the release of medical or other information is NOT sufficient authorization for further disc losure. Family History Family Member Name Family Member Gender Family Member Status Date o f Status Description Data Source(s) Unknown Male Problem [facility] ([facility]) Unknown Male Problem [facility] ([facility], ) () Encounters Encounter Providers Location Date Indications Data Source(s ) <td ID="encounterTypeDescriptionID0">[place] Follow-Up</td><td>Fly Saba MD, FACS</td><td>Fly Evans MD [facility]</td><td>10/14/2020</td><td>8:23AM</td><td>8:56AM</td><td><content ID="encounterDiagnosisID0-0">Chalazion</content>, <content ID="encounterDiagnosisID0-1">Blepharitis Squamous</content>, <content ID="encounterDiagnosisID0-2">Assessment of Chalazion Left Lower Eyelid</content></td>Outpatient Attender: Fly Saba MD, FACS Fly Saba MD [facility] 10/14/2020 08:23:00 AM EDT - 10/14/2020 08:56:00 AM ED T Assessment of Chalazion Left Lower EyelidChalazionAssessment of Chalazion Left Lower EyelidChalazionAssessment of Chalazion Left Lower EyelidChalazionBlepharitis SquamousBlepharitis SquamousBlepharitis Squamous EMILY (Fly Saba MD [facility]) Assessment of Chalazion Left Lower Eyeli d Chalazion Assessment of Chalazion Left Lower Eyeli d Chalazion Assessment of Chalazion Left Lower Eyeli d Chalazion 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 <td ID="encounterTypeDescriptionID1">TRI AGE NON URGENT</td><td>Fly Saba MD, FACS</td><td>Fly Evans MD [facility]</td><td>08/18/2020</td><td>12:19PM</td><td>1:19PM</td><td><content ID="encounterDiagnosisID1-0">Chalazion</content>, <content ID="encounterDiagnosisID1-1">Blepharitis Squamous</content>, <content ID="encounterDiagnosisID1-2">Assessment of Chalazion Left Lower Eyelid</content></td>Outpatient Attender: Fly Saba MD, FACS Fly Saba MD [facility] 08/18/2020 12:19:00 PM EDT - 08/18/2020 01:19:00 PM ED T Assessment of Chalazion Left Lower EyelidChalazionAssessment of Chalazion Left Lower EyelidChalazionAssessment of Chalazion Left Lower EyelidChalazionBlepharitis SquamousBlepharitis SquamousBlepharitis Squamous EMILY (Fly Saba MD [facility]) Assessment of Chalazion Left Lower Eyeli d Chalazion Assessment of Chalazion Left Lower Eyeli d Chalazion Assessment of Chalazion Left Lower Eyeli d Chalazion 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 OFFICE OUTPATIENT VISIT 15 MINUTES Attender: Lili FUENTES PA-C Physical Therapy 06/08/2020 09:30:00 AM EST [facility] ([facility]) Office Visit Attender: Lili FUENTES PA-C Physical Therapy 03/02/2020 01:00:00 PM EST [facility] ([facility]) Outpatient Admitter: Jorge Odener: Jorge Rollins 01/14/2020 12:00:00 AM EDT [facility] Immunizations Vaccine Date Status Description Data Source(s) COVID-19 VACCINE Moderna 06/22/2020 12:00:00 AM EDT completed [facility] Vaccine Series Complete: YESThis Data wa s Submitted to [facility] Via [facility]. COVID-19 VACCINE, MRNA-1273, LNP-S (MODERNA)/PF 06/22/2020 1 2:00:00 AM EDT completed [facility] COVID-19 VACCINE, MRNA-1273, LNP-S (MODERNA)/PF 05/28/2020 1 2:00:00 AM EST completed [facility] Medications Medication Brand Name Start Date Product Form Dose Route Admi nistrative Instructions Pharmacy Instructions Status Indications Reaction Description Data Source(s) Diphenhydramine Hydrochloride 25 MG Oral Tablet [Benadryl] Benadryl Allergy 25 MG Oral Tablet Benadryl Allergy 25 MG Oral Tablet 08/18/2020 12:00:00 AM EDT 1 active diphenhydramine hydrochl oride 25 MG Oral Tablet [Benadryl] EMILY (Fly Saba MD [facility]) Dexamethasone 4 MG Oral Tablet Dexamethasone 4 MG Oral Table t 08/18/2020 12:00:00 AM EDT active dexameth asone 4 MG Oral Tablet EMILY (Fly Saba MD [facility]) Acyclovir 400 MG Oral Tablet Acyclovir 400 MG Oral Tablet 12:00:00 AM EDT 1 active acyclovir 400 MG Oral Tablet EMILY (Fly Saba MD [facility]) Dexamethasone 1 MG/ML / Tobramycin 3 MG/ ML Ophthalmic Suspension [Tobradex] TobraDex 0.3-0.1% Ophthalmic Suspension TobraDex 0.3-0.1% Ophthalmic Suspension 08/18/2020 12:00:00 AM EDT active dexamethasone 1 MG/ML / tobramycin 3 MG/ML Ophthalmic Suspension [Tobradex] EMILY (Fly Saba MD [facility]) Insurance Providers Payer name Policy type / Coverage type Policy ID Covered constitution party ID Covered constitution party's relationship to larry Policy Larry Plan Information [employer] [facility] Part B [id number] Self [id number] [facility] Part B [id number] Family Dependent 1 [id number] [facility] Part B [id number] Family Dependent 1 [id number] [employer] [facility] Part B [id number] Self 2 [id number] [facility] Part B [id number] Family Dependent 1 [id number] [employer] [facility] Part B [id number] Self [id number] [place] [employer] Part B [id number] Family Dependent 1 [id number] [employer] Medigap Part B [id number] Self 2 [id number] E[employer]IRE PLAN [facility] [id number] Self [id number] MEDICARE [id number] SP [id number] MEDICARE A [id number] Self [id number] [id number] MEDICARE [id number] SP [id number] A BCBS EMPIRE GALEN DIV [id number] HU2 [id number] UNITED HEALTHCARE [id number] HU2 [id number] UNITED HEALTHCARE [id number] HU2 89 [id number] BS EMPIRE GALEN DIV [id number] HU2 [id number] UNITED HEALTHCARE [id number] HU2 89 [id number] [employer] [place] Medigap Part B [id number] Family Dependent 8 [id number] Medicare [place]state/NGS Medicare Primary [id number] Self 1 [id number] BS EMPIRE GALEN DIV [id number] SP [id number] UNITED HEALTHCARE [id number] HU2 89 [id number] [employer] [place] Medigap Part B [id number] Family Dependent 8 [id number] Medicare [place]/NGS Medicare Primary [id number] Self 1 [id number] [employer] [place] Medigap Part B [id number] Family Dependent 8 [id number] Medicare Upstate/[facility] Medicare Primary [id number] Self 1 [id number] BCBS EMPIRE GALEN DIV UNAVAILABLE SP UNAVAILABLE BCBS EMPIRE GALEN DIV [id number] EMPIRE ([facility] O [id number] S [id number] BCBS EMPIRE GALEN DIV [id number] HU2 [id number] BCBS EMPIRE GALEN DIV [id number] HU2 [id number] UNITED HEALTHCARE [id number] [id number] [facility] [employer] - [employer] Other 0 [id number] Self 0 Medicare Part B of [facility] Individual Policy 0 [id number] Self 0 [facility] [employer] - [employer] Other 0 [id number] Self 0 Medicare Part B of [facility] Individual Policy 0 [id number] Self 0 [facility] [employer] - [employer] Other 0 [id number] Self 0 Medicare Part B of [facility] Individual Policy 0 [id number] Self 0 MEDICARE C [id number] S [id number] UNITED HEALTHCARE O [id number] S [id number] MEDICARE C [id number] S [id number] A Medicare Dme Supplies Medigap Part B [id number] Self 1 [id number] Medicare [facility] Medicare Primary [id number] Self 1 [id number] Medicare Dme Supplies Medigap Part B [id number] Self 1 [id number] Medicare [facility] Medicare Primary [id number] Self 1 [id number] Medicare Dme Supplies [facility] Part B [id number] Self 1 [id number] Medicare [place] Medicare Primary [id number] Self 1 [id number] Medicare [place] Medicare Primary [id number] Self 1 [id number] Problems, Conditions, and Diagnoses Code Display Name Description Problem Type Effective Dates Data Source(s) D47.2 Monoclonal gammopathy Monoclonal gammopathy Diagnosis 01/14/2020 11:13:00 AM EDT [facility] 373.2 Chalazion Chalazion Problem 08/18/2020 12:00:00 AM ED T EMILY (Fly Saba MD [facility]) [id number] Chalazion Left Lower Eyelid Chalazion Left Lower Eyeli d Problem 08/18/2020 12:00:00 AM EDT EMILY (Fly Saba MD [facility]) 373.2 Chalazion Chalazion Problem 08/18/2020 12:00:00 AM ED T EMILY (Fly Saba MD [facility]) [id number] Chalazion Left Lower Eyelid Chalazion Left Lower Eyeli d Problem 08/18/2020 12:00:00 AM EDT EMILY (Fly Saba MD [facility]) 373.2 Chalazion Chalazion Problem 08/18/2020 12:00:00 AM ED T EMILY (Fly Saba MD [facility]) [id number] Chalazion Left Lower Eyelid Chalazion Left Lower Eyeli d Problem 08/18/2020 12:00:00 AM EDT EMILY (Fyl Saba MD [facility]) Surgeries/Procedures Procedure Description Date Indications Data Source(s) Surgical / procedural history right david t bone spur, left knee, appendectomy, growth at the end of the colon, 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 Surgical / procedural history right foot bone spur, left knee, appendectomy, growth at the end of the colon, 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10/14/2020 12:00:00 AM EDT EMILY (Fly Saba MD [facility]) Surgical / procedural history right david t bone spur, left knee, appendectomy, growth at the end of the colon, 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 Surgical / procedural history right foot bone spur, left knee, appendectomy, growth at the end of the colon, 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08/18/2020 12:00:00 AM EDT EMILY (Fly Saba MD [facility]) Intermediate Eye Exam Established Patient Intermediate Eye Exam Established Patient 08/18/2020 12:00:00 AM EDT EMILY (Jermaine Saba MD [facility]) RADIOLOGIC EXAMINATION KNEE 3 VIEWS 06/08/2020 12:00:0 0 AM EST [facility] ([facility] THERAPEUTIC PX 1/> AREAS EACH 15 MIN EXERCISES 12:00:00 AM EDT [facility] ([facility] ) THERAPEUTIC PX 1/> AREAS EACH 15 MIN EXERCISES 12:00:00 AM EDT [facility] ([facility] ) THERAPEUTIC PX 1/> AREAS EACH 15 MIN EXERCISES 12:00:00 AM EDT [facility] ([facility] ) MANUAL THERAPY TQS 1/> REGIONS EACH 15 MINUTES 12:00:00 AM EDT [facility] ([facility] ) THERAPEUTIC PX 1/> AREAS EACH 15 MIN EXERCISES 12:00:00 AM EDT [facility] ([facility] ) MANUAL THERAPY TQS 1/> REGIONS EACH 15 MINUTES 12:00:00 AM EDT [facility] ([facility] ) THERAPEUTIC PX 1/> AREAS EACH 15 MIN EXERCISES 12:00:00 AM EDT [facility] ([facility] ) MANUAL THERAPY TQS 1/> REGIONS EACH 15 MINUTES 12:00:00 AM EDT [facility] ([facility] ) THERAPEUTIC PX 1/> AREAS EACH 15 MIN EXERCISES 12:00:00 AM EDT [facility] ([facility] ) MANUAL THERAPY TQS 1/> REGIONS EACH 15 MINUTES 12:00:00 AM EDT [facility] ([facility] ) MANUAL THERAPY TQS 1/> REGIONS EACH 15 MINUTES 12:00:00 AM EDT [facility] ([facility] ) THERAPEUTIC PX 1/> AREAS EACH 15 MIN EXERCISES 12:00:00 AM EDT [facility] ([facility]) THERAPEUTIC PX 1/> AREAS EACH 15 MIN EXERCISES 12:00:00 AM EDT [facility] ([facility] ) THERAPEUTIC PX 1/> AREAS EACH 15 MIN EXERCISES 12:00:00 AM EDT [facility] ([facility] ) MANUAL THERAPY TQS 1/> REGIONS EACH 15 MINUTES 12:00:00 AM EDT [facility] ([facility] ) THERAPEUTIC PX 1/> AREAS EACH 15 MIN EXERCISES 12:00:00 AM EDT [facility] ([facility] ) MANUAL THERAPY TQS 1/> REGIONS EACH 15 MINUTES 12:00:00 AM EDT [facility] ([facility] ) THERAPEUTIC PX 1/> AREAS EACH 15 MIN EXERCISES 12:00:00 AM EDT [facility] ([facility] ) MANUAL THERAPY TQS 1/> REGIONS EACH 15 MINUTES 12:00:00 AM EDT [facility] ([facility] ) THERAPEUTIC PX 1/> AREAS EACH 15 MIN EXERCISES 12:00:00 AM EDT [facility] ([facility] ) MANUAL THERAPY TQS 1/> REGIONS EACH 15 MINUTES 12:00:00 AM EDT [facility] ([facility] ) APPLICATION MODALITY 1/> AREAS HOT/COLD PACKS 12/17/19 12:00:00 AM EDT [facility] ([facility]) THERAPEUTIC PX 1/> AREAS EACH 15 MIN EXERCISES 12:00:00 AM EDT [facility] ([facility] ) MANUAL THERAPY TQS 1/> REGIONS EACH 15 MINUTES 12:00:00 AM EDT [facility] ([facility] ) MANUAL THERAPY TQS 1/> REGIONS EACH 15 MINUTES 12:00:00 AM EDT [facility] ([facility] ) THERAPEUTIC PX 1/> AREAS EACH 15 MIN EXERCISES 12:00:00 AM EDT [facility] ([facility]) THERAPEUTIC PX 1/> AREAS EACH 15 MIN EXERCISES 12:00:00 AM EDT [facility] ([facility]) MANUAL THERAPY TQS 1/> REGIONS EACH 15 MINUTES 12:00:00 AM EDT [facility] ([facility]) THERAPEUTIC PX 1/> AREAS EACH 15 MIN EXERCISES 12:00:00 AM EDT [facility] ([facility]) MANUAL THERAPY TQS 1/> REGIONS EACH 15 MINUTES 12:00:00 AM EDT [facility] ([facility]) THERAPEUTIC PX 1/> AREAS EACH 15 MIN EXERCISES 12:00:00 AM EDT [facility] ([facility]) MANUAL THERAPY TQS 1/> REGIONS EACH 15 MINUTES 12:00:00 AM EDT [facility] ([facility]) THERAPEUTIC PX 1/> AREAS EACH 15 MIN EXERCISES 12:00:00 AM EDT [facility] ([facility]) THERAPEUTIC PX 1/> AREAS EACH 15 MIN EXERCISES 12:00:00 AM EDT [facility] ([facility]) MANUAL THERAPY TQS 1/> REGIONS EACH 15 MINUTES 12:00:00 AM EDT [facility] ([facility]) THERAPEUTIC PX 1/> AREAS EACH 15 MIN EXERCISES 12:00:00 AM EDT [facility] ([facility]) Results ID Date Data Source [id number] 01/16/2020 04:10:00 PM EDT [facility] Hematopathology Report See Addendum Mumtaz wName: SRIDHAR MARIARORYN: [id number] Number: [id number] Date: 01/14/2020 14:30Received Date: 01/15/2020 13:43Physician(s): JORGE ROLLINS MD VYAS, SHIKHAR G,MDCopy To:[facility]) ReceivedA: Bone Marrow, Flow Cytometry; Received 1 green top BM, 2 aspiratesmears, and 1 PB smearClinical HistoryMonoclonal gammopathy.TEST REQUESTED/PERFORMED: Flow cytometry analysis DiagnosisFlow cytometry of bone marrow: 7% clonal plasma cells, consistent withplasma cell neoplasm.Radha Best M.D.;Resident PathologistElectronically Signed By Amalia Kumar M.D. Attending Pathologist 01/16/2020 16:10:29The attending pathologist named above attests that he/she has personallyreviewed the relevant preparation(s) for the specimen(s) and rendered thefinal diagnosis. 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 Karyotype analysis was not performed due toinsufficient specimen. 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 Thediagnosis is unchanged. Addendum Electronically Signed By: Johanna bosch MD, PhD 01/22/2020 10:36 ProceduresFlow Cytometry Date Ordered:01/15/2020 Status: Signed Out01/16/2020 InterpretationPERIPHERAL BLOOD: CBC performed at [facility] (01/14/20)WBC 7.3 K/uLRBC *3.57 M/uLHgb *11.0 g/dLHct *33.3 %MCV 93.3 fLMCH 30.8 pgMCHC 33.0 g/dLRDW 13.4 %Platelets 294 K/ulDifferential Count (automated):43.5 % Neutrophils 1.5 % Eosinophils 0.3 % Cufhobwbr07.9 % Lymphocytes 0.3 % Immature Granulocytes 7.5 % Monocytes-------100.0 % A peripheral blood film is reviewed. Increased rouleaux formation isnoted. BONE MARROW ASPIRATE:Differential Count (100 cells):21 % Erythroid Precursors 1 % Blasts 5 % N. Myelocytes 8 % N. Metamyelocytes and Band Forms28 % Neutrophils 1 % Hmqsydenckg95 % Lymphocytes 7 % Plasma Cells--------100 % Lymphoid Panel: The following markers were assayed: CD45 (gate), CD2, CD3, CD4, CD5, CD7,CD8, CD10, CD19, CD20, CD33, CD34, CD38, CD56, CD57, CD64, CD117, CD123,HLA- DR, [place], and Lambda.# events: [id number]: 97%Flow Cytometry Differential (CD45/SSC)Lymphocyte [place]: 36%CD45 dim [place]: 2%Monocyte [place]: 2%Granulocyte [place]: 41%Nucleated/Erythroid [place]: 8%The lymphocyte gate showsB-cells (CD19): 11%T-cells (CD3): 53%NK-cells (CD3-/CD56+): 28%[place]/Lambda Ratio: 1.5CD4/CD8 Ratio: 2.0Results: (expressed as % of lymphocyte gate)T-cell Markers: CD2 = 76, CD3 = 53, CD3/CD4 = 30, CD3/CD8 = 15, CD5 = 50,CD7 = 65, CD3/57 = 31B-cell markers: [place] = 5, Lambda = 4, CD19 = 10, CD20 = 15, CD19/10 = 1,CD19/CD5 = 1, CD38/CD20 = 13Light chain as % of B-Cells: CD19/[place] = 49, CD19/Lambda = 35,CD19/CD5/[place] = 1, CD19/CD5/Lambda = 1, CD19/CD10/[place] = 8,CD19/CD10/Lambda = 6NK cell Markers: CD56 = 53, CD57 = 52Other Markers: CD10 = 1, CD38 = 78Results: (expressed as % of CD45 dim gate)T-cell Markers: CD2 = 24, CD3 = 10, CD3/CD4 = 5, CD3/CD8 = 7, CD5 = 12,CD7 = 22, CD3/57 = 4B-cell markers: [place]aton = 12, Lambda = 1, CD19 = 64, CD20 = 36, CD19/10 =61, CD19/CD5 = 3, CD38/CD20 = 35Light chain as % of B-Cells: CD19/Laton = 17, CD19/Lambda = 0,CD19/CD10/Laton = 10, CD19/CD10/Lambda = 1NK cell Markers: CD56 = 12, CD57 = 17Basophil Markers: CD123 (HLA-DR-) = 2Other Markers: CD10 = 63, CD38 = 89, CD33 = 21, CD34 = 24, CD64 = 2, CD117= 4, CD123 = 37, HLA-DR = 83Myeloma Panel The following markers were assayed: CD45 (cell gate), CD138 (plasma cellgate), CD19, CD20, CD38, CD56, cytoplasmic Laton, and cytoplasmic Lambda.(Please note, that Cytoplasmic Laton and Cytoplasmic Lambda are used todetect plasma cells, while surface Laton and Lambda are for lymphocytes).# events: [id number]: Routinely a minimum of 500,000 events are collected in each paneltube. Due to sample cellularity and/or processing this number was notachievable for this sample.Viability: 93%Flow Cytometry Differential:Lymphocyte [place]: 22%CD45 dim [place]: 1%Monocyte [place]: 2%Granulocyte [place]: 29%NRBC [place]: 6%CD138 Plasma Cell [place]: 3%Results: (expressed as % of total CD138+ plasma cell gate)CD38 = 100, CD56 = 96, CD38/56 = 96, CD19 = 1, CD20 = 1Cytoplasmic [place]/CD138 = 0, Cytoplasmic Lambda/CD138 = 96 Results-CommentsLymphocytes consist predominantly of T cells with normal expression of panT-cell markers and normal CD4/CD8 ratio, normal proportion of NK cells,increased proportion of cytotoxic T cells, and polyclonal B cells.CD34+ blasts comprise fewer than 1% of cells studied. Blasts, monocytes,and granulocytes show no definitive immunophenotypic aberrancies.Plasma cell- associated markers show lambda-restricted plasma cells withexpression of CD38 and CD138, aberrant expression of CD56, and loss ofCD19 and CD45.Procedure Electronically Signed By:Amalia Kumar M.D.01/16/2020 This report may include one or more immunohistochemical stain/fluorochromeconjugated monoclonal antibody results that use analyte specific reagents.All positive and negative controls have been reviewed by the attendingpathologist and are satisfactory. The tests were developed and theirperformance characteristics determined by [facility] Pathology department.They have not been cleared or approved by the US Food and DrugAdministration. The FDA has determined that such clearance or approval isnot necessary. Name Value Range Interpretation Code Description Data Yarelis rce(s) Supporting Document(s) ID Date Data Source [id number] 01/21/2020 11:18:00 AM [facility] Cytogenetics ReportName: SRIDHAR MARIA RORYN: [id number] Number: [id number] Date: 01/14/2020 00:00Received Date: 01/15/2020 13:55Physician(s): JORGE ROLLINS MD VYAS, SHIKHAR G,MDSpecimen(s) ReceivedA: Bone Marrow - Karyo and Multiple Myel FISHClinical [id number] patient with monoclonal gammopathyTEST REQUESTED/PERFORMED: Karyotype Analysis and Fluorescence in situhybridization - FISH DiagnosisMonosomy 13 [87%]Deletions of 13q is a recurrent abnormality in plasma cell neoplasmsincluding myeloma. Correlation with the concurrent Hematopathology report([id number]) and other laboratory data is suggested.Electronically Signed By Alhaji Jesus, Ph.D., [facility], Director ofCytogenetics 01/21/2020 11:18:55Gross DescriptionFluorescence in situ Hybridization (FISH)multiple myeloma FISH panel:nuc vick(CDKN2C,CKS1B)x2[100],(5p15.31,EGR1)x2[97/100],(S11D759,13q34)x1[87/100],(IgH x2)[97/100], (TP53,D17Z1)x2[94/100]DescriptionA plasma cell enriched cell population evaluated by FISH showed 87% ofnuclei with monosomy 13. There is no evidence for gains or losses ofchromosomes 1, or 5; deletions of 14q32.3 (IgH) or 17p13 (TP53); or an IgHrearrangement. Karyotype analysis was also requested from the culturedcells, however, there was insufficient specimen available for this studyto be performed. Test DataFluorescence in situ Hybridization (FISH): Enriched Plasma Cells Probe Normal Cut-off Nuclei Analyzed FISH SIGNAL PATTERNS Normal Abnormal NKCS *LSI CDKN2C (1p22.3) G LSI CKS1B (1q21.3) O 3% 100 2G2O: 100% 0% 0% *LSI 5p15.31 G LSI EGR1 (5q31.2) R 3% 100 2G2R: 97% 0% 3% *LSI C55V430 (13q14.2) O LSI 13q34 G 3% 100 2O2% 1O1% 0% *LSI IgH (14q32)Y BA 3% 100 2Y: 97% 0% 3% *LSI TP53 (17p13.1) O CEP 17 (D17Z1) G 3% 100 2O2% 0% 6% Vendor: *[employer].Probes: LSI: Locus Specific Probe; CEP: Centromeric Probe; BA: BreakApart Fluorochromes/ Signals: G - Green; O orange; R Red; Y - yellow(fusion) NKCS: Signals with No Known Clinical SignificanceDisclaimer: Conventional chromosome analysis may not detect submicroscopicstructural chromosome abnormalities as well as aberrations present at lowpercentages. The plasma cells evaluated in this study were isolated fromthe bone marrow mixed cell population utilizing immunomagnetic cellseparation. This technology significantly enriches the test cellpopulation for plasma cells, thereby improving FISH detection of anomaliesassociated with plasma cell myeloma. However, as this is a selectivepopulation, the true in vivo frequencies of the anomalies identifiedcannot be determined. The FISH test was developed and its performance wasvalidated by the Cytogenetics section of the Department of ClinicalPathology. This test has not been cleared or approved by the U. S. Foodand Drug Administration (FDA). The FDA has determined that such approvalis not necessary. However, the procedure is considered investigational,and should not be used as the sole criteria for diagnosis. Name Value Range Interpretation Code Description Data Yarelis rce(s) Supporting Document(s) Procedure Social History Code Duration Value Status Description Data Source(s ) Smoking 12/07/2020 02:15:36 PM EDT Never smoked tobacco (findi ng) completed Never smoked tobacco (finding) EMILY (Fly Saba MD [facility]) Smoking 10/28/2020 07:36:56 AM EDT Never smoked tobacco (findi ng) completed Never smoked tobacco (finding) EMILY (Fly Saba MD [facility]) Smoking 10/14/2020 02:28:25 PM EDT Never smoked tobacco (findi ng) completed Never smoked tobacco (finding) EMILY (Fly Saba MD [facility]) Patient Treatment Plan of Care Planned Activity Planned Date Details Description Data Source (s) Dexamethasone 1 MG/ML / Tobramycin 3 MG/ML Ophthalmic Suspension [Tobradex] 08/18/2020 12:00:00 AM TOMAS DIAZ (Jermaine id Brittany Saba MD [facility])
[2021-01-18 09:22] LABS: ALBUMIN 3.7 GM/DL (3.2-5.2); ALT/SGPT 92 U/L (12-78); BILIRUBIN,DIRECT < 0.1 MG/DL (0.0-0.2); BILIRUBIN,TOTAL 0.4 MG/DL (0.2-1.0); BLOOD UREA NITROGEN 12 MG/DL (7-18); CALCIUM LEVEL 9.2 MG/DL (8.8-10.2); CARBON DIOXIDE LEVEL 24 MEQ/L (21-32); CHLORIDE LEVEL 104 MEQ/L (98-107); CK-MB VALUE MASS < 1.0 NG/ML (<3.6); CPK CREATINE PHOSPHOKINASE 65 U/L (26-192); CREATININE FOR GFR 0.85 MG/DL (0.55-1.30); GLOMERULAR FILTRATION RATE > 60.0 (>39); GLUCOSE, FASTING 111 MG/DL (70-100); LIPASE 197 U/L (73-393); MB/CK RELATIVE INDEX 1.54 (< OR =4); POTASSIUM SERUM 3.5 MEQ/L (3.5-5.1); SODIUM LEVEL 136 MEQ/L (136-145); TOTAL PROTEIN 7.8 GM/DL (6.4-8.2); TROPONIN I < 0.02 NG/ML (< 0.10)
--- NOTE | 2021-01-18 10:09 | REP ---
INDICATION: biliary colic. COMPARISON: 09/21/2020. TECHNIQUE: Real-time sonographic evaluation of right upper quadrant performed. FINDINGS: There are multiple mobile gallstones in the gallbladder. There is no gallbladder wall thickening or pericholecystic fluid.. There is no intrahepatic or extrahepatic biliary dilatation, common bile duct measures 4 mm in maximum diameter. The liver demonstrates homogeneous echotexture with no gross mass. There may be some degree of fibrofatty infiltration of the liver. The pancreas demonstrates homogeneous echotexture with no gross mass. The right kidney demonstrates no hydronephrosis, with a normal size of 10.1 cm in length. There is 9 mm cyst of the lower pole the right kidney.No free fluid is seen. IMPRESSION: Multiple mobile gallstones in the gallbladder without evidence of gallbladder wall thickening, pericholecystic fluid or biliary dilatation. <Electronically signed by Tj Zuluaga > 01/18/21 1000
[2021-01-18] MEDS ORDERED: ONDA4TAB6 PO (10:20)
[2021-01-18 10:31] VITALS: BP 147/62
--- NOTE | 2021-01-19 01:07 | ECGEPIP ---
[facility] - ED Test Date: 2021-01-18 Pat Name: DAVID MARIA Department: Room: - Gender: Female Director Prospect: HODAN : 1950 Requested By: Patrick Cuadra Order Number: [id number] Reading MD: Fly Lozano Measurements Intervals [place] Rate: 91 P: 26 KS: 218 QRS: -2 QRSD: 84 T: 43 QT: 404 QTc: 496 Interpretive Statements Sinus rhythm with 1st degree AV block Minimal voltage criteria for LVH, may be normal variant Nonspecific ST-T wave abnormalities Prolonged QTc interval Similar to tracing done 08-22-20 Electronically Signed on 01-19-2021 1:06:56 EDT by Fly Lozano
== END 2021-01-18 10:30 | disposition home or self-care (01) ==
LOC: M ED 06:17
DX: K80.20 Calculus of gallbladder without cholecystitis without obstruction (principal); K80.50 Calculus of bile duct without cholangitis or cholecystitis without obstruction; N20.0 Calculus of kidney; R94.31 Abnormal electrocardiogram [ECG] [EKG]; Z79.899 Other long term (current) drug therapy
CPT/HCPCS: 76705; 80048; 80076; 82550; 82553; 83690; 84484; 85025; 93005; 93041; 96374; 99284; J2405

== ENCOUNTER → 2021-02-08 | Outpatient (CLI) | payer MEDICARE, BC, OTHER | LOC: M LABSMTC 10:35 | PROVIDERS: ATTEND Anesthesiology | DX: Z01.812 Encounter for preprocedural laboratory examination (principal); Z11.52 Encounter for screening for COVID-19 ==

== ENCOUNTER 2021-02-12 12:31 | Day surgery (SDC) | payer MEDICARE, BC, OTHER ==
[~2021-02-12] VITALS: Ht 154.9 cm; Wt 67.0 kg
--- OUTSIDE RECORDS SUMMARY | 2021-02-12 12:35 | CCD | Continuity of Care Document ---
Author Author Trang STARKS M.D. Organization Unknown Address [address], [address] [place] [address] Phone [phone] Care Team Providers Care Affirmative Action Specialist Name Role Phone Hermann Decker M.D. AUTM [phone] Problems Active Problems Provider Date Essential hypertension Jose More MD Onset: 013 History of polyp of colon Dave Starks M.D. Onset: 2014 Carbuncle of trunk Dave Starks M.D. Onset: 10/14/2013 Personal history of primary malignant neoplasm of breast Del ruben Starks M.D. Onset: 10/14/2013 Vascular cannula removal Dave Starks M.D. Onset: 014 Contact dermatitis due to drugs AND/OR medicine Dave rader M.D. 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 Onset: 07/09/2012 Carcinoma in situ of breast Dave Starks M.D. Onset: 06/02 Breast lump Dave Starks M.D. Onset: 06/13/2012 Social History Type Date Description Comments Sex Unknown ETOH Use Denies alcohol use Recreational Drug Use Denies Drug Use Tobacco Use Start: Unknown Denies Smoking Allergies and adverse reactions Active Allergies Criticality Reaction | Severity Comments Date Codeine Unable to assess criticality 09/02/2010 Taxol Unable to assess criticality Nausea and Vomiting 12/07/2016 Tape Unable to assess criticality Blisters 01/29/2021 Medications Active Medications SIG Qnty Indications Ordering Provide r Date Aspirin Low Dose 81mg Tablets 1 daily Unknown Fish Oil Triple Strength 1400mg Ca psules 1 Daily Unknown Hydrochlorothiazide 25mg Tablets 1 po daily Unknown Lisinopril 5mg Tablets 1 po q d Unknown Centrum Silver Tablets 1 PO Daily Unknown Caltrate 600+D [id number] Tabl ets 1 PO Daily Unknown Acyclovir 400mg Tablets Take 1 Tablet By Mouth Twice Daily Rachael Velasquez M.D. Dexamethasone 4mg Tablets Take 5 Tablets By Mouth Weekly With Chemotherapy Regimen Rachael Velasquez M.D. Berteszomib 2.14 MG every other week Unknown Immunizations Description No Information Available Vital Signs Date Vital Result Comment 01/29/2021 8:21am BP Systolic 162 mmHg BP Diastolic 84 mmHg Body Temperature 98.4 F Height 62 inches 5'2" Weight 147.50 lb BMI (Body Mass Index) 27.0 kg/m2 [place] Body Weight 110 lb Weight 66.906 kg BSA (Body Surface Area) 1.68 m2 12/07/2016 8:55am BP Systolic 164 mmHg BP Diastolic 80 mmHg Heart Rate 100 /min Height 62 inches 5'2" Weight 146.00 lb BMI (Body Mass Index) 26.7 kg/m2 [place] Body Weight 110 lb Weight 66.226 kg BSA (Body Surface Area) 1.67 m2 Results Description No Information Available Procedures Date Code Description Status 01/29/2021 39742 Office/Outpatient New Moderate M DM 45-59 Minutes Completed Medical Devices Description No Information Available Encounters Type Date Location Provider Dx Diagnosis Office Visit 01/29/2021 8:30a [facility] Dave ayala M.D. K80.10 Calculus of gallbladder w chronic cholec yst w/o obstruction C90.00 Multiple myeloma not having achieved remission Z85.3 Personal history of malignan t neoplasm of breast Assessments Date Code Description Provider 01/29/2021 K80.10 Calculus of gallblad debby with chronic cholecystitis without obstruction Dave Starks M.D. 01/29/2021 C90.00 Multiple myeloma not having achi eved remission Dave Starks M.D. 01/29/2021 Z85.3 Personal history of malignant ne oplasm of breast Dave Starks M.D. Plan of Treatment Future Appointment(s):* 02/22/2021 11:30 am - NANI Yuan at [facility] * 02/12/2021 3:45 pm - Dave Starks M.D. at [facility] 01/29/2021 - Dave Starks M.D.* K80.10 Calculus of gallbladder with chronic cholecystitis without obstruction* Comments:* Patient was counseled that her episodes of pain do sound consistent with biliary colic. She has definite gallstones by ultrasound. I have recommended that she consider a laparoscopic cholecystectomy. I described the procedure to her. I advised her of the potential side effect of an increased frequency of bowel movements. Risks of the procedure were discussed and these include but are not limited to bleeding, infection, scarring, adverse drug reaction, need for further reza rgery, injury of internal organ, and hernia. Patient had an opportunity to ask questions. Given her history of a prior open right hemicolectomy I have recommended that we proceed with a robotic approach to her procedure as this may facilitate a lysis of adhesions if necessary. She desires to proceed with the surgery and this will be scheduled. I will request preoperative medical optimization from her primary provider. * C90.00 Multiple myeloma not having achieved remission * Z85.3 Personal history of malignant neoplasm of breast Functional Status Description No Information Available Mental Status Description No Information Available Referrals Refer to Reason for Referral Status Appt Date Dave Starks M.D. GALLSTONES Scheduled 01/29/2021 [facility] [address] [place] [phone]
--- OUTSIDE RECORDS SUMMARY | 2021-02-12 12:35 | CCD ---
Author Author [facility] Address Unknown Phone Unavailable Care Team Providers Care Animal Therapist Name Role Phone [facility], Sarina Pearson [facility], PA-C Unavailable Unavailabl e Fish, Sarina [facility], PA-C Unavailable Unavailabl e Fish, Sarina [facility], PA-C Unavailable Unavailabl e Fish, Sarina [facility], PA-C Unavailable Unavailabl e Fish, [facility], PA-C Unavailable Unavailabl e Fish, [facility], PA-C Unavailable Unavailabl e Fish, [facility], PA-C Unavailable Unavailabl e Fish, Sarina [facility], PA-C Unavailable Unavailabl e Fish, [facility], PA-C Unavailable Unavailabl e Fish, Sarina [facility], PA-C Unavailable Unavailabl e Fish, Sarina [facility], PA-C Unavailable Unavailabl e Fish, Sarina [facility], PA-C Unavailable Unavailabl e Fish, [facility], PA-C Unavailable Unavailabl e Fish, [facility], PA-C Unavailable Unavailabl e Fish, [facility], PA-C Unavailable Unavailabl e Fish, [facility], PA-C Unavailable Unavailabl e Fish, [facility], PA-C Unavailable Unavailabl e Fish, [facility], PA-C Unavailable Unavailabl e Fish, [facility], PA-C Unavailable Unavailabl e Fish, [facility], PA-C Unavailable Unavailabl e Fish, Sarina Lili [facility], PA-C Unavailable Unavailabl e Fish, Sarina Pearson [facility], PA-C Unavailable Unavailabl e Fish, Sarina Pearson [facility], PA-C Unavailable Unavailabl e Fish, Sarina Pearson [facility], PA-C Unavailable Unavailabl e Fish, Sarina Pearson [facility], PA-C Unavailable Unavailabl e Fish, Sarina Pearson [facility], PA-C Unavailable Unavailabl e Fish, Sarina Pearson [facility], PA-C Unavailable Unavailabl e Fish, Sarina Pearson [facility], PA-C Unavailable Unavailabl e Fish, Sarina Pearson [facility], PA-C Unavailable Unavailabl e Fish, Sarina Pearson [facility], PA-C Unavailable Unavailabl e Fish, Sarina Pearson [facility], PA-C Unavailable Unavailabl e Fish, Sarina Pearson [facility], PA-C Unavailable Unavailabl e Fish, Sarina Pearson [facility], PA-C Unavailable Unavailabl e Fish, Sarina Pearson [facility], PA-C Unavailable Unavailabl e Fish, Sarina Pearson [facility], PA-C Unavailable Unavailabl e Fish, Sarina Pearson [facility], PA-C Unavailable Unavailabl e Ria G Jorge Unavailable Unavailable RAUDEL, O MARIANA PATEL Unavailable Unavailable RAUDEL, O MARIANA PATEL Unavailable Unavailable RAUDEL, O MARIANA PATEL Unavailable Unavailable RAUDEL, O MARIANA PATEL Unavailable Unavailable RAUDEL, O MARIANA PATEL Unavailable Unavailable RAUDEL, O MARIANA PATEL Unavailable Unavailable RAUDEL, O MARIANA PATEL Unavailable Unavailable RAUDEL, O MARIANA PATEL Unavailable Unavailable RAUDEL, O MARIANA PATEL Unavailable Unavailable RAUDEL, O MARIANA PATEL Unavailable Unavailable RAUDEL, O MARIANA PATEL Unavailable Unavailable RAUDEL, O MARIANA PATEL Unavailable Unavailable RAUDEL, O MARIANA PATEL Unavailable Unavailable RAUDEL, O MARIANA PATEL Unavailable Unavailable RAUDEL, O MARIANA PATEL Unavailable Unavailable RAUDEL, O MARIANA PATEL Unavailable Unavailable RAUDEL, O MARIANA PATEL Unavailable Unavailable RAUDEL, O MARIANA PATEL Unavailable Unavailable RAUDEL, O MARIANA PATEL Unavailable Unavailable RAUDEL, O MARIANA PATEL Unavailable Unavailable RAUDEL, O MARIANA PATEL Unavailable Unavailable RAUDEL, O MARIANA PATEL Unavailable Unavailable RAUDEL, O MARIANA PATEL Unavailable Unavailable RAUDEL, O MARIANA PATEL Unavailable Unavailable RAUDEL, O MARIANA PATEL Unavailable Unavailable RAUDEL, O MARIANA PAETL Unavailable Unavailable RAUDEL, O MARIANA PATEL Unavailable Unavailable RAUDEL, O MARIANA PATEL Unavailable Unavailable RAUDEL, O MARIANA PATEL Unavailable Unavailable RAUDEL, O MARIANA PATEL Unavailable Unavailable RAUDEL, O MARIANA MD Unavailable Unavailable RAUDEL, Eros PEÑA MD Unavailable Unavailable RAUDEL, O MARIANA PATEL Unavailable Unavailable RAUDEL, O MARIANA PAETL Unavailable Unavailable RAUDEL, O MARIANA PATEL Unavailable Unavailable RAUDEL, O MARIANA PATEL Unavailable Unavailable RAUDEL, Eros PEÑA MD Unavailable Unavailable RAUDEL, O MARIANA PATEL Unavailable Unavailable RAUDEL, O MARIANA PATEL Unavailable Unavailable RAUDEL, Eros PEÑA MD Unavailable Unavailable RAUDEL, O MARIANA PATEL Unavailable Unavailable RAUDEL, O MARIANA PATEL Unavailable Unavailable RAUDEL, O MARIANA PATEL Unavailable Unavailable RAUDEL, O MARIANA PATEL Unavailable Unavailable RAUDEL, Eros PEÑA MD Unavailable Unavailable Aquino Saba, Brittany Bill MD, [...] is protected by Article 27-F of the [facility] Public Health law. If you continue you may have access to information: Regarding HIV / AIDS; Provided by facilities licensed or operated by the [facility] Office of Mental Health; or Provided by the [facility] Office for People With Developmental Disabilities. If such information is present, then the following [facility] mandated warning applies: This information has [...] law may result in a fine or mcc sentence or both. A general authorization for the release of medical or other information is NOT sufficient authorization for further disc losure. Family History Family Member Name Family Member Gender Family Member Status Date o f Status Description Data Source(s) Unknown Male Problem [facility]ENT ([facility]) Unknown Male Problem [facility] ([facility], ) () Encounters Encounter Providers Location Date Indications Data Source(s ) Outpatient Attender: MARIANA Mackey/Atilio/Frank/Abimbola indl 01/29/2021 08:30:00 AM EDT [facility] ([facility] <td ID="encounterTypeDescriptionID0">[address] Follow-Up</td><td>Fly Saba MD, FACS</td><td>Fly Evans MD [facility]</td><td>10/14/2020</td><td>8:23AM</td><td>8:56AM</td><td><content ID="encounterDiagnosisID0-0">Chalazion</content>, <content ID="encounterDiagnosisID0-1">Blepharitis Squamous</content>, <content ID="encounterDiagnosisID0-2">Assessment of Chalazion Left Lower Eyelid</content></td>Outpatient Attender: Fly Saba MD, FACS Fly Saba MD [facility] 10/14/2020 08:23:00 AM EDT - 10/14/2020 08:56:00 AM ED T Assessment of Chalazion Left Lower EyelidChalazionAssessment of Chalazion Left Lower EyelidChalazionAssessment of Chalazion Left Lower EyelidChalazionBlepharitis SquamousBlepharitis SquamousBlepharitis Squamous EMILY (Fly Saba MD [facility]) Assessment of Chalazion Left Lower Eyeli d Chalazion Assessment of Chalazion Left Lower Eyeli d Chalazion Assessment of Chalazion Left Lower Eyeli d Chalazion 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 <td ID="encounterTypeDescriptionID1">TRI AGE NON URGENT</td><td>Fly Saba MD, FACS</td><td>Fly Evans MD [facility]</td><td>08/18/2020</td><td>12:19PM</td><td>1:19PM</td><td><content ID="encounterDiagnosisID1-0">Chalazion</content>, <content ID="encounterDiagnosisID1-1">Blepharitis Squamous</content>, <content ID="encounterDiagnosisID1-2">Assessment of Chalazion Left Lower Eyelid</content></td>Outpatient Attender: Fly Saba MD, FACS Fly Saba MD [facility] 08/18/2020 12:19:00 PM EDT - 08/18/2020 01:19:00 PM ED T Assessment of Chalazion Left Lower EyelidChalazionAssessment of Chalazion Left Lower EyelidChalazionAssessment of Chalazion Left Lower EyelidChalazionBlepharitis SquamousBlepharitis SquamousBlepharitis Squamous EMILY (Fly Saba MD [facility]) Assessment of Chalazion Left Lower Eyeli d Chalazion Assessment of Chalazion Left Lower Eyeli d Chalazion Assessment of Chalazion Left Lower Eyeli d Chalazion 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) Office Visit Attender: Lili FUENTES PA-C Physical Therapy 03/02/2020 01:00:00 PM EST [facility] ([facility]) Outpatient Admitter: Jorge Hernandezerrer: Jorge Rollins 01/14/2020 12:00:00 AM EDT Monoclonal gammopathy [facility] Monoclonal gammopathy Immunizations Vaccine Date Status Description Data Source(s) COVID-19 VACCINE Moderna 06/22/2020 12:00:00 AM EDT completed [facility]SIIS Vaccine Series Complete: YESThis Data wa s Submitted to [facility] Via [employer]. COVID-19 VACCINE, MRNA-1273, LNP-S (MODERNA)/PF 06/22/2020 1 [...] Oral Tablet [Benadryl] EMILY (Fly Saba MD [facility]) Dexamethasone 4 MG Oral Tablet Dexamethasone 4 MG Oral Table t 08/18/2020 12:00:00 AM EDT active dexameth asone 4 MG Oral Tablet EMILY (Fly Saba MD [facility]) Acyclovir 400 MG Oral Tablet Acyclovir 400 MG Oral Tablet 12:00:00 AM EDT 1 active acyclovir 400 MG Oral Tablet EMILY (Fly Saba MD [facility]) Dexamethasone 1 MG/ML / Tobramycin 3 MG/ ML Ophthalmic Suspension [Tobradex] TobraDex 0.3-0.1% Ophthalmic Suspension TobraDex 0.3-0.1% Ophthalmic Suspension 08/18/2020 12:00:00 AM EDT active dexamethasone 1 MG/ML / tobramycin 3 MG/ML Ophthalmic Suspension [Tobradex] EMILY (Fly Saba MD [facility]) Insurance Providers Payer name Policy type / Coverage type Policy ID Covered democrat ID Covered democrat's relationship to larry Policy Larry Plan Information [employer] [facility] Part [id number] Self [id number] [employer] [facility] Part [id number] Self [id number] [facility] Part B [id number] Family Dependent 1 [id number] [facility] Part B [id number] Family Dependent 1 [id number] [facility] Part B [id number] Family Dependent 1 [id number] [employer] [facility] Part B [id number] Self [id number] [facility] Part B [id number] Family Dependent 1 [id number] [employer] Part B [id number] Self 2 [id number] EMPIRE PLAN [facility] [id number] Self [id number] MEDICARE [id number] SP [id number] MEDICARE [id number] SP [id number] A MEDICARE A [id number] Self [id number] [id number] BCBS EMPIRE [place] DIV [id number] HU2 [id number] [facility] [id number] HU2 89 [id number] BCBS EMPIRE [place] DIV [id number] HU2 [id number] [facility] [id number] HU2 [id number] [facility] [id number] HU2 [id number] [facility] Medigap Part B [id number] Family Dependent [id number] Medicare [place] Medicare Primary [id number] Self 1 [id number] BCBS E[place]IRE [place] DIV [id number] SP [id number] [facility] [id number] 2 [id number] [facility] Medigap Part B [id number] Family Dependent [id number] Medicare Upstate/NGS Medicare Primary [id number] Self 1 [id number] [facility] [place] Medigap Part B [id number] Family Dependent [id number] Medicare Upstate/NGS Medicare Primary [id number] Self 1 [id number] BCBS EMPIRE [place] DIV UNAVAILABLE SP UNAVAILABLE BCBS EMPIRE [place] DIV [id number] 2 [id number] E[facility]IRE ([facility]) O [id number] S [id number] [facility] EMPIRE GAL[place] DIV [id number] HU2 [id number] [facility] EMPIRE [place] DIV [id number] HU2 [id number] [facility] [id number] HU2 [id number] [facility] - [employer] Other 0 [id number] Self 0 Medicare Part B of [facility] Individual Policy 0 [id number] Self 0 [facility] [employer] Other 0 [id number] Self 0 Medicare Part B of [place] [facility] [place] Individual Policy 0 [id number] Self 0 [facility] - [employer] Other 0 [id number] Self 0 Medicare Part B of [facility] Individual Policy 0 [id number] Self 0 MEDICARE C [id number] S [id number] [facility] O [id number] S [id number] MEDICARE C [id number] S [id number] A Medicare Dme Supplies Medigap Part B [id number] Self 1 [id number] Medicare [place] Medicare Primary [id number] Self 1 [id number] Medicare Dme Supplies Medigap Part B [id number] Self 1 [id number] Medicare [place] Medicare Primary [id number] Self 1 [id number] Medicare Dme Supplies Medigap Part B [id number] Self 1 [id number] Medicare [place] Medicare Primary [id number] Self 1 [id number] Medicare [place] Medicare Primary [id number] Self 1 [id number] Problems, Conditions, and Diagnoses Code Display Name Description Problem Type Effective Dates Data Source(s) D47.2 Monoclonal gammopathy Monoclonal gammopathy Diagnosis 01/14/2020 11:13:00 AM EDT [facility] 373.2 Chalazion Chalazion Problem 08/18/2020 12:00:00 AM ED T EMILY (Fly Saba MD [facility]) 1321134 Chalazion Left Lower Eyelid Chalazion Left Lower Eyeli d Problem 08/18/2020 12:00:00 AM EDT EMILY (lFy Saba MD [facility]) 373.2 Chalazion Chalazion Problem 08/18/2020 12:00:00 AM ED T EMILY (Fly Saba MD [facility]) 4065379 Chalazion Left Lower Eyelid Chalazion Left Lower Eyeli d Problem 08/18/2020 12:00:00 AM EDT EMILY (Fly Saba MD [facility]) 373.2 Chalazion Chalazion Problem 08/18/2020 12:00:00 AM ED T EMILY (Fly Saba MD [facility]) 3876146 Chalazion Left Lower Eyelid Chalazion Left Lower Eyeli d Problem 08/18/2020 12:00:00 AM EDT EMILY (Fly Saba MD [facility]) Surgeries/Procedures Procedure Description Date Indications Data Source(s) OFFICE OUTPATIENT NEW 45 MINUTES 01/29/2021 12:00:00 A EDT [facility] ([facility], ) Surgical / procedural history right david t bone spur, left knee, appendectomy, growth at the end of the colon, 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 Surgical / procedural history right foot bone spur, left knee, appendectomy, growth at the end of the colon, 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10/14/2020 12:00:00 AM EDT EMILY (Fly Saba MD [facility]) Surgical / procedural history right david t bone spur, left knee, appendectomy, growth at the end of the colon, 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 ) THERAPEUTIC PX 1/> AREAS EACH 15 MIN EXERCISES 12:00:00 AM EDT [facility] ([facility] ) THERAPEUTIC PX 1/> AREAS EACH 15 MIN EXERCISES 12:00:00 AM EDT [facility] ([facility] ) THERAPEUTIC PX 1/> AREAS EACH 15 MIN EXERCISES 12:00:00 AM EDT [facility] ([facility] ) MANUAL THERAPY TQS 1/> REGIONS EACH 15 MINUTES 12:00:00 AM EDT [facility] ([facility] ) THERAPEUTIC PX 1/> AREAS EACH 15 MIN EXERCISES 12:00:00 AM EDT [facility] ([facility] ) MANUAL THERAPY TQS 1/> REGIONS EACH 15 MINUTES 12:00:00 AM EDT [facility] ([facility] ) THERAPEUTIC PX 1/> AREAS EACH 15 MIN EXERCISES 12:00:00 AM EDT [facility] ([facility] ) MANUAL THERAPY TQS 1/> REGIONS EACH 15 MINUTES 12:00:00 AM EDT [facility] ([facility] ) THERAPEUTIC PX 1/> AREAS EACH 15 MIN EXERCISES 12:00:00 AM EDT [facility] ([facility] ) MANUAL THERAPY TQS 1/> REGIONS EACH 15 MINUTES 12:00:00 AM EDT [facility] ([facility] ) MANUAL THERAPY TQS 1/> REGIONS EACH 15 MINUTES 12:00:00 AM EDT [facility] ([facility] ) THERAPEUTIC PX 1/> AREAS EACH 15 MIN EXERCISES 12:00:00 AM EDT [facility] ([facility]) THERAPEUTIC PX 1/> AREAS EACH 15 MIN EXERCISES 12:00:00 AM EDT [facility] ([facility]) THERAPEUTIC PX 1/> AREAS EACH 15 MIN EXERCISES 12:00:00 AM EDT [facility] ([facility]) MANUAL THERAPY TQS 1/> REGIONS EACH 15 MINUTES 12:00:00 AM EDT [facility] ([facility]) THERAPEUTIC PX 1/> AREAS EACH 15 MIN EXERCISES 12:00:00 AM EDT [facility] ([facility]) MANUAL THERAPY TQS 1/> REGIONS EACH 15 MINUTES 12:00:00 AM EDT [facility] ([facility]) THERAPEUTIC PX 1/> AREAS EACH 15 MIN EXERCISES 12:00:00 AM EDT [facility] ([facility]) MANUAL THERAPY TQS 1/> REGIONS EACH 15 MINUTES 12:00:00 AM EDT [facility] ([facility]) THERAPEUTIC PX 1/> AREAS EACH 15 MIN EXERCISES 12:00:00 AM EDT [facility] ([facility]) MANUAL THERAPY TQS 1/> REGIONS EACH 15 MINUTES 12:00:00 AM EDT [facility] ([facility]) APPLICATION MODALITY 1/> AREAS HOT/COLD PACKS 12/17/19 12:00:00 AM EDT [facility] ([facility]) THERAPEUTIC PX 1/> AREAS EACH 15 MIN EXERCISES 12:00:00 AM EDT [facility] ([facility]) MANUAL THERAPY TQS 1/> REGIONS EACH 15 MINUTES 12:00:00 AM EDT [facility] ([facility]) Results ID Date Data Source [id number] 01/16/2020 04:10:00 PM EDT [facility] Hematopathology Report See Addendum Mumtaz wName: MARIASRIDHARRAGINIRN: [id number] Number: [id number] Date: 01/14/2020 14:30Received Date: 01/15/2020 13:43Physician(s): JORGE ROLLINS MD VYAS, SHIKHAR [facility]) ReceivedA: Bone Marrow, Flow Cytometry; Received 1 [...] rendered thefinal diagnosis. 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 Karyotype analysis was not performed due toinsufficient specimen. 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 Thediagnosis is unchanged. Addendum Electronically Signed By: Johanna bosch MD, PhD 01/22/2020 10:36 ProceduresFlow Cytometry Date Ordered:01/15/2020 Status: Signed Out01/16/2020 InterpretationPERIPHERAL BLOOD: CBC performed at [facility] (01/14/20)WBC 7.3 K/uLRBC *3.57 M/uLHgb *11.0 g/dLHct *33.3 %MCV 93.3 fLMCH 30.8 pgMCHC 33.0 g/dLRDW 13.4 %Platelets 294 K/ulDifferential Count (automated):43.5 % Neutrophils 1.5 % Eosinophils 0.3 % Bexkniksl78.9 % Lymphocytes 0.3 % Immature Granulocytes 7.5 % Monocytes-------100.0 % A peripheral blood film is reviewed. Increased rouleaux formation isnoted. BONE MARROW ASPIRATE:Differential Count (100 cells):21 % Erythroid Precursors 1 % Blasts 5 % N. Myelocytes 8 % N. Metamyelocytes and Band Forms28 % Neutrophils 1 % Ltysasyjhru74 % Lymphocytes 7 % Plasma Cells--------100 % Lymphoid Panel: The following markers were assayed: CD45 (gate), CD2, CD3, CD4, CD5, CD7,CD8, CD10, CD19, CD20, CD33, CD34, CD38, CD56, CD57, CD64, CD117, CD123,HLA- DR, [place], and Lambda.# events: [id number]: 97%Flow Cytometry Differential (CD45/SSC)Lymphocyte [place]: 36%CD45 dim [place]: 2%Monocyte [place]: 2%Granulocyte [place]: 41%Nucleated/Erythroid [place]: 8%The lymphocyte gate showsB-cells (CD19): 11%T-cells (CD3): 53%NK-cells (CD3-/CD56+): 28%[place]/Lambda Ratio: 1.5CD4/CD8 Ratio: 2.0Results: (expressed as % of lymphocyte gate)T-cell Markers: CD2 = 76, CD3 = 53, CD3/CD4 = 30, CD3/CD8 = 15, CD5 = 50,CD7 = 65, CD3/57 = 31B-cell markers: [place] = 5, Lambda = 4, CD19 = 10, CD20 = 15, CD19/10 = 1,CD19/CD5 = 1, CD38/CD20 = 13Light chain as % of B-Cells: CD19/[place] = 49, CD19/Lambda = 35,CD19/CD5/[place] = 1, CD19/CD5/Lambda = 1, CD19/CD10/[place] = 8,CD19/CD10/Lambda = 6NK cell Markers: CD56 = 53, CD57 = 52Other Markers: CD10 = 1, CD38 = 78Results: (expressed as % of CD45 dim gate)T-cell Markers: CD2 = 24, CD3 = 10, CD3/CD4 = 5, CD3/CD8 = 7, CD5 = 12,CD7 = 22, CD3/57 = 4B-cell markers: [place] = 12, Lambda = 1, CD19 = 64, CD20 = 36, CD19/10 =61, CD19/CD5 = 3, CD38/CD20 = 35Light chain as % of B-Cells: CD19/[place] = 17, CD19/Lambda = 0,CD19/CD10/[place] = 10, CD19/CD10/Lambda = 1NK cell Markers: CD56 = 12, CD57 = 17Basophil Markers: CD123 (HLA-DR-) = 2Other Markers: CD10 = 63, CD38 = 89, CD33 = 21, CD34 = 24, CD64 = 2, CD117= 4, CD123 = 37, HLA-DR = 83Myeloma Panel The following markers were assayed: CD45 (cell gate), CD138 (plasma cellgate), CD19, CD20, CD38, CD56, cytoplasmic [place], and cytoplasmic Lambda.(Please note, that Cytoplasmic [place] and Cytoplasmic Lambda are used todetect plasma cells, while surface [place] and Lambda are for lymphocytes).# events: [id number]: Routinely a minimum of 500,000 events are collected in each paneltube. Due to sample cellularity and/or processing this number was notachievable for this sample.Viability: 93%Flow Cytometry Differential:Lymphocyte [place]: 22%CD45 dim [place]: 1%Monocyte [place]: 2%Granulocyte [place]: 29%NRBC [place]: 6%CD138 Plasma Cell [place]: 3%Results: (expressed as % of total CD138+ plasma cell gate)CD38 = 100, CD56 = 96, CD38/56 = 96, CD19 = 1, CD20 = 1Cytoplasmic [place]/CD138 = 0, Cytoplasmic Lambda/CD138 = 96 Results-CommentsLymphocytes [...] were developed and theirperformance characteristics determined by [facility] Pathology department.They have not been cleared or approved by the US Food and DrugAdministration. The FDA has determined that such clearance or approval isnot necessary. Name Value Range Interpretation Code Description Data Yarelis rce(s) Supporting Document(s) ID Date Data Source [id number] 01/21/2020 11:18:00 AM [facility] Cytogenetics ReportName: SRIDHAR [facility]: [id number] Number: [id number] Date: 01/14/2020 00:00Received Date: 01/15/2020 13:55Physician(s): JORGE ROLLINS MD VYAS, SHIKHAR G,MDSpecimen(s) ReceivedA: Bone Marrow - Karyo and Multiple Myel FISHClinical [id number] patient with monoclonal gammopathyTEST REQUESTED/PERFORMED: Karyotype Analysis and Fluorescence in situhybridization - FISH DiagnosisMonosomy 13 [87%]Deletions of 13q is a recurrent abnormality in plasma cell neoplasmsincluding myeloma. Correlation with the concurrent Hematopathology report([id number]) and other laboratory data is suggested.Electronically Signed By Alhaji Jesus, Ph.D., [facility], Director ofCytogenetics 01/21/2020 11:18:55Gross DescriptionFluorescence in situ Hybridization (FISH)multiple myeloma FISH panel:nuc vick(CDKN2C,CKS1B)x2[100],(5p15.31,EGR1)x2[97/100],(C07E242,13q34)x1[87/100],(IgH x2)[97/100], (TP53,D17Z1)x2[94/100]DescriptionA plasma cell enriched cell population [...] 3% 100 2G2R: 97% 0% 3% *LSI J90R119 (13q14.2) O LSI 13q34 G 3% 100 2O2% 1O1% 0% *LSI IgH (14q32)Y BA 3% 100 2Y: 97% 0% 3% *LSI TP53 (17p13.1) O CEP 17 ([id number]) G 3% 100 2O2% 0% 6% Vendor: *[employer].Probes: LSI: Locus Specific Probe; CEP: Centromeric Probe; [...] smoked tobacco (finding) EMILY (Fly Saba MD [facility]) Smoking 10/28/2020 07:36:56 AM EDT Never smoked tobacco (findi ng) completed Never smoked tobacco (finding) EMILY (Fly Saba MD [facility]) Smoking 10/14/2020 02:28:25 PM EDT Never smoked tobacco (findi ng) completed Never smoked tobacco (finding) EMILY (Fly Saba MD [facility]) Vital Signs ID Date Data Source UNK Name Value Range Interpretation Code Description Data Source(s) Systolic blood pressure 162 mm[Hg] 162 mm[Hg] M [facility] ([facility]) Diastolic blood pressure 84 mm[Hg] 84 mm[Hg] [facility] ([facility]) Body temperature 98.4 [degF] 98.4 [degF] [facility] ([facility]) Body height 62 [in_i] 62 [in_i] [facility] ([facility]) 5'2" Body weight 147.50 [lb_av] 147.50 [lb_av] [facility] ([facility]) Body mass index (BMI) [Ratio] 27.0 kg/m2 27.0 k g/m2 [facility] ([facility]) [place] body weight 110 [lb_av] 110 [lb_av] [facility] Body weight 66.906 kg 66.906 kg [facility] ([facility]) Body surface area Derived from formula 1.68 m2 1.68 m2 [facility] ([facility]) Patient Treatment Plan of Care Planned Activity Planned Date Details Description Data Source (s) Dexamethasone 1 MG/ML / Tobramycin 3 MG/ML Ophthalmic Suspension [Tobradex] 08/18/2020 12:00:00 AM TOMAS DIAZ (Jermaine Saba MD [facility])
--- OUTSIDE RECORDS SUMMARY | 2021-02-12 12:35 | CCD | Continuity of Care Document ---
Author Author Trang STARKS M.D. Organization Unknown Address [address], [address] [place] [address] Phone [phone] Care Team Providers Care Onboarding Specialist Name Role Phone Hermann Decker M.D. AUTM [phone] Problems Active Problems Provider Date Essential hypertension [...] Tablets 1 PO Daily Unknown Caltrate 600+D [id number] Tabl ets 1 PO Daily Unknown Acyclovir [...] lb BMI (Body Mass Index) 27.0 kg/m2 [place] Body Weight 110 lb Weight 66.906 kg BSA (Body Surface Area) 1.68 m2 12/07/2016 8:55am BP Systolic 164 mmHg BP Diastolic 80 mmHg Heart Rate 100 /min Height 62 inches 5'2" Weight 146.00 lb BMI (Body Mass Index) 26.7 kg/m2 [place] Body Weight 110 lb Weight 66.226 kg BSA (Body Surface Area) 1.67 m2 Results Description No Information Available Procedures Description No Information Available Medical Devices Description No Information Available Encounters Description No Information Available Assessments Description No Information Available Plan of Treatment 12/07/2016 - Dave Starks M.D.* Z85.3 Personal history of malignant neoplasm of breast* Comments:* Patient was counseled that her breast exam is benign showing typical post treatment changes. Her mammogram showed no suspicious findings. We discussed her ongoing followup. She will continue her regular followup with the medical and radiation oncologists and return to see me only as needed. * Follow up:* Return as needed. Continue regular followup with her primary physician and with the oncology specialists. Functional Status Description No Information Available Mental Status Description No Information Available Referrals Refer to Reason for Referral Status Appt Date Dvae Starks M.D. GALLSTONES Scheduled 01/29/2021 [facility] [address] [place] [address] [phone]
[2021-02-12] MEDS ORDERED: BUPIVACAINE HCL 0.25% 30ML VIAL As Ordered ONE (13:45)
[2021-02-12] MEDS ORDERED: propofoL 200 MG/20 ML VIAL As Ordered ONE (14:14)
[2021-02-12] MEDS ORDERED: ROCURONIUM BROMIDE 50 MG/5 ML VIAL As Ordered ONE (14:14)
[2021-02-12] MEDS ORDERED: LIDOCAINE 2% 100MG/5ML SDV (FOR ANES.) As Ordered ONE (14:14)
[2021-02-12] MEDS ORDERED: MIDAZOLAM INJ 2MG/2ML VIAL (J2250 PER 1MG) As Ordered ONE (14:14)
[2021-02-12] MEDS ORDERED: METOCLOPRAMIDE INJ 10MG/2ML VIAL (J2765 PER 1) As Ordered ONE (14:14)
[2021-02-12] MEDS ORDERED: ONDANSETRON 4MG/2ML VIAL As Ordered ONE (14:14)
[2021-02-12] MEDS ORDERED: fentaNYL 250 MCG/5 ML INJECTION (J3010) As Ordered ONE (14:14)
[2021-02-12] MEDS ORDERED: dexameTHASONE 4 MG/ML 1ML VIAL (J1100 PER 1MG) As Ordered ONE (14:14)
[2021-02-12] MEDS ORDERED: SUGAMMADEX SODIUM 500 MG/5 ML VIAL (BRIDION) As Ordered ONE (14:14)
[2021-02-12] MEDS ORDERED: KETOROLAC 60MG 2ML VIAL As Ordered ONE (14:14)
[2021-02-12] MEDS ORDERED: ACETAMINOPHEN 1000MG 100ML IV BTL (OFIRMEV) (J0131 PER 10MG) As Ordered ONE (14:19)
[2021-02-12] MEDS ORDERED: PHENYLephrine 500MCG 5ML (100MCG/ML) SYRINGE As Ordered ONE (15:18)
[2021-02-12] MEDS ORDERED: HYDROMORPHONE HCL 0.5 MG/ 0.5 ML SYRINGE (J1170 PER 1) IV PRN (16:25)
[2021-02-12] MEDS ORDERED: oxyCODONE 5MG TAB PO PRN (16:25)
[2021-02-12] MEDS ORDERED: fentaNYL 100 MCG/2 ML INJECTION (J3010) IV PRN (16:25)
[2021-02-12] MEDS ORDERED: ACETAMINOPHEN TAB 650MG DOSE (2X325MG) PO PRN (16:25)
[2021-02-12] MEDS ORDERED: ONDANSETRON 4MG/2ML VIAL IV PRN (16:25)
[2021-02-12 17:05] VITALS: BP 123/56
[2021-02-12] MEDS ORDERED: traMADol 50 MG TAB PO PRN (19:25)
--- NOTE | 2021-02-13 19:06 | RO ---
OPERATIVE NOTE DATE OF OPERATION: 02/12/2021 PREOPERATIVE DIAGNOSIS: Symptomatic gallstones. POSTOPERATIVE DIAGNOSES: 1. Symptomatic gallstones. 2. Abdominal peritoneal adhesions. PROCEDURE PERFORMED: Robotic-assisted laparoscopic cholecystectomy with lysis of adhesions. SURGEON: Dave Luna MD ANESTHESIA: General INDICATIONS FOR THE PROCEDURE: The patient is a 70-year-old woman with a history of episodic right upper quadrant abdominal pain. Pains were felt to be consistent with biliary colic and ultrasound confirmed gallstones. She is now for a laparoscopic cholecystectomy. OPERATIVE PROCEDURE: The patient was brought to the operating room and placed on the table in a supine position. She was placed under general endotracheal anesthesia. The patient's abdomen was prepped and draped in a sterile fashion. 1/4% Marcaine was infiltrated at the trocar sites as needed. A short incision was made in the left upper quadrant and a Veress needle was inserted. After a positive hanging drop test, the abdomen was insufflated with carbon dioxide gas. An 8 mm port was placed over the camera and this was advanced through the abdominal wall without difficulty. Initial examination showed no evidence of trocar or Veress needle injury. The patient was noted to have fairly extensive adhesions of the omentum to the anterior abdominal wall in the mid-abdomen. It was possible to advance the camera into the upper abdomen superior to the adhesions and the liver appeared normal. The gallbladder appeared slightly thick walled and there were some adhesions noted to the omentum. However, the adhesions did preclude placement of the trocars. Therefore a 5 mm port was placed in the left mid-abdomen and using a cauterizing scissor, the adhesions to the abdominal wall were lysed. This probably took an additional 20 minutes to clear the abdominal wall of the adhesions. Following this, a second port was placed along the midline at the umbilicus. Two additional ports were placed in the right lower quadrant. The patient was moved into a slight reverse Trendelenburg position. She was rolled slightly to the left. The patient car of the [employer] robot was brought into position. The endoscope arm was docked to the supraumbilical port. Targeting took place on the gallbladder. The additional robotic arms were docked. A hook cautery was placed in the left upper quadrant and a grasping retractor and fenestrated bipolar were placed in the right lower quadrant ports. I then moved to the control console to proceed with the operation. The gallbladder was clearly identified. It was grasped and elevated. There were some adhesions of the body and fundus of the gallbladder to the surrounding omentum and these adhesions were lysed with the cautery. The gallbladder was then further elevated. Dissection was begun in the area of gallbladder neck. The pericholecystic fatty tissue was dissected and the cystic duct and cholecystic artery were identified running together to the gallbladder. Both structures were doubly clipped with Hemoclips and divided. The gallbladder was then dissected then dissected free from the gallbladder fossa using cautery dissection. The gallbladder was not perforated in the course of dissection. A single bleeding point on the gallbladder bed was then thoroughly cauterized. The gallbladder was placed in an Endopouch. The right upper quadrant was inspected and irrigated. There was no evidence of any bleeding or bile leak. The area of the adhesiolysis was then inspected and again there was no evidence of any bleeding. The robotic instruments were withdrawn. The robot was undocked and the patient cart was withdrawn. I returned to the patient's side. The string of the Endopouch was delivered through the supraumbilical port. The abdomen was then deflated and the trocars were all removed. The incision at the umbilicus was extended slightly to allow passage of the gallbladder. There were a small number of stones perhaps 3-4 mm in diameter palpable within the gallbladder. This was sent for permanent pathology. The fascia at the umbilical site was closed with interrupted simple sutures of 2-0 Vicryl. The skin incisions were then all closed with buried 4-0 Vicryl and Steri-Strips. Light dressings were applied. The patient tolerated the procedure well without apparent complication. She was awakened in the operating room, extubated, moved to the recovery room in stable condition. SILVANA
== END 2021-02-12 17:10 | disposition home or self-care (01) ==
LOC: M SDC 12:31
PROVIDERS: ATTEND Surgery
DX: K80.10 Calculus of gallbladder with chronic cholecystitis without obstruction (principal); K66.0 Peritoneal adhesions (postprocedural) (postinfection); I10 Essential (primary) hypertension; D64.9 Anemia, unspecified; C90.00 Multiple myeloma not having achieved remission; Z85.3 Personal history of malignant neoplasm of breast; Z86.010 Personal history of colon polyps; Z98.51 Tubal ligation status; Z90.710 Acquired absence of both cervix and uterus; Z88.6 Allergy status to analgesic agent; Z91.048 Other nonmedicinal substance allergy status; Z79.899 Other long term (current) drug therapy
CPT/HCPCS: 47562; 88304; J0131; J1100; J1885; J2250; J2370; J2405; J2765; J3010; S2900

== ENCOUNTER → 2021-12-31 | Outpatient (CLI) | payer MEDICARE, BC, OTHER ==
[~2021-12-31] MED LIST changes: +BACT800T5 PO; +BORTEZOMIB PO; -LISI-898 PO; +LISI5TAB11 PO; +POMA4CAP PO; +POTA-136 PO; +POTA-151 PO; -POTA20TA6 PO
== END ==
LOC: M WHC 10:30
PROVIDERS: ATTEND Internal Medicine Medical Oncology
DX: Z12.31 Encounter for screening mammogram for malignant neoplasm of breast (principal)

== ENCOUNTER → 2022-06-30 | Outpatient (CLI) | payer MEDICARE, BC, OTHER ==
[~2022-06-30] MED LIST changes: +POMA2CAP PO
== END ==
LOC: M RAD 06:45
PROVIDERS: ATTEND Internal Medicine Medical Oncology
DX: C90.00 Multiple myeloma not having achieved remission (principal)

== ENCOUNTER 2022-10-12 11:18 | Observation (INO) | payer MEDICARE, BC, OTHER ==
[~2022-10-12] VITALS: Ht 154.9 cm; Wt 63.8 kg
[~2022-10-12 11:18] MED LIST changes: +CYCL1CAP2 PO
[2022-10-12] MEDS ORDERED: fentaNYL 100 MCG/2 ML INJECTION As Ordered ONE ×2 (11:41→13:55)
[2022-10-12] MEDS ORDERED: MIDAZOLAM INJ 2MG/2ML VIAL As Ordered ONE (11:42)
[2022-10-12] MEDS ORDERED: LIDOCAINE 1% MDV 20ML VIAL As Ordered ONE (11:42)
[2022-10-12] MEDS ORDERED: LIDOCAINE W/EPINEPHRINE 1% 20ML VIAL As Ordered ONE (12:49)
[2022-10-12] MEDS ORDERED: ceFAZolin 2 GM/D5W 50 ML IV BAG As Ordered ONE (12:50)
[2022-10-12] MEDS ORDERED: NS 1,000 ML IV SCH ×2 (13:25→16:15)
[2022-10-12] MEDS ORDERED: ceFAZolin SOD 2 GM in IV 1 EA IV ONE (13:25)
[2022-10-12] MEDS ORDERED: hydrALAZINE 20MG/ML 1ML VIAL As Ordered ONE (13:37)
[2022-10-12] MEDS ORDERED: ISOVUE-300 61% 100ML VIAL As Ordered ONE (14:10)
[2022-10-12] MEDS ORDERED: ACETAMINOPHEN 325 MG TAB As Ordered ONE (15:06)
[2022-10-12] MEDS ORDERED: ACETAMINOPHEN TAB 650MG DOSE (2X325MG) PO ONE (15:20)
[2022-10-12 16:51] LABS: HEMATOCRIT 30.1 % (36.0-47.0); HEMOGLOBIN 10.2 g/dl (12.0-15.5); MEAN CORPUSCULAR HEMOGLOBIN 32.3 pg (27.0-33.0); MEAN CORPUSCULAR HGB CONC 33.9 g/dl (32.0-36.5); MEAN CORPUSCULAR VOLUME 95.3 fl (80.0-96.0); PLATELET COUNT, AUTOMATED 229 10^3/uL (150-450); RED BLOOD COUNT 3.16 10^6/uL (4.00-5.40); WHITE BLOOD COUNT 11.5 10^3/uL (4.0-10.0)
[2022-10-12] MEDS ORDERED: ISOVUE-370 76% 100ML VIAL As Ordered ONE (17:08)
[2022-10-12 17:15] LABS: BLOOD UREA NITROGEN 21 MG/DL (9-23); CALCIUM LEVEL 8.7 MG/DL (8.3-10.6); CARBON DIOXIDE LEVEL 20 MMOL/L (20-31); CHLORIDE LEVEL 108 MMOL/L (98-107); CREATININE FOR GFR 0.71 MG/DL (0.55-1.30); GLOMERULAR FILTRATION RATE > 60.0 (>39); GLUCOSE, FASTING 111 MG/DL (74-106); POTASSIUM SERUM 3.6 MMOL/L (3.5-5.1); SODIUM LEVEL 139 MMOL/L (136-145)
[2022-10-12 18:25] VITALS: BP 167/71; TEMP 96.7; O2SAT 96
[2022-10-12] MEDS ORDERED: ACETAMINOPHEN TAB 650MG DOSE (2X325MG) PO PRN (18:30)
[2022-10-12] MEDS ORDERED: ACETAMINOPHEN 500 MG TAB PO PRN (18:35)
[2022-10-12] MEDS ORDERED: MORPHINE 2 MG/ML 1ML VIAL IV PRN (18:35)
[2022-10-12] MEDS ORDERED: ONDANSETRON 4MG 2ML VIAL IV PRN (19:00)
[2022-10-12 19:24] LABS: HEMATOCRIT 31.8 % (36.0-47.0); HEMOGLOBIN 10.9 g/dl (12.0-15.5); MEAN CORPUSCULAR HEMOGLOBIN 32.2 pg (27.0-33.0); MEAN CORPUSCULAR HGB CONC 34.3 g/dl (32.0-36.5); MEAN CORPUSCULAR VOLUME 93.8 fl (80.0-96.0); PLATELET COUNT, AUTOMATED 231 10^3/uL (150-450); RED BLOOD COUNT 3.39 10^6/uL (4.00-5.40); WHITE BLOOD COUNT 5.6 10^3/uL (4.0-10.0)
[2022-10-12 19:30] VITALS: BP 118/58; TEMP 98.2; O2SAT 99
[2022-10-12] MEDS ORDERED: LIDOCAINE 5% (LIDODERM) PATCH TD SCH (21:00)
[2022-10-12 23:26] VITALS: BP 115/57; TEMP 98; O2SAT 98
[2022-10-13 03:52] VITALS: BP 107/50; TEMP 98.6; O2SAT 96
[2022-10-13 04:53] LABS: HEMOGLOBIN 10.3 g/dl (12.0-15.5); MEAN CORPUSCULAR HEMOGLOBIN 31.5 pg (27.0-33.0); MEAN CORPUSCULAR HGB CONC 33.2 g/dl (32.0-36.5); MEAN CORPUSCULAR VOLUME 94.8 fl (80.0-96.0); PLATELET COUNT, AUTOMATED 211 10^3/uL (150-450); RED BLOOD COUNT 3.27 10^6/uL (4.00-5.40); WHITE BLOOD COUNT 4.8 10^3/uL (4.0-10.0)
[2022-10-13 05:18] LABS: BLOOD UREA NITROGEN 26 MG/DL (9-23); CARBON DIOXIDE LEVEL 21 MMOL/L (20-31); CHLORIDE LEVEL 108 MMOL/L (98-107); CREATININE FOR GFR 0.73 MG/DL (0.55-1.30); GLOMERULAR FILTRATION RATE > 60.0 (>39); GLUCOSE, FASTING 113 MG/DL (74-106); SODIUM LEVEL 139 MMOL/L (136-145)
[2022-10-13 08:15] VITALS: BP 117/53; TEMP 98; O2SAT 95
[2022-10-13] MEDS ORDERED: BACTRIM 160MG/800MG DS TAB PO SCH (09:00)
[2022-10-13] MEDS ORDERED: ENTER DRUG NAME HERE (PATIENT'S OWN MED) PO SCH (09:00)
[2022-10-13] MEDS ORDERED: ACYCLOVIR 200 MG CAPSULE PO SCH (09:00)
[2022-10-13] MEDS ORDERED: CYCL1CAP2 PO (10:51)
[2022-10-13] MEDS ORDERED: HOME MED LIST COMPLETE! XX SCH (10:55)
[2022-10-13 11:37] VITALS: BP 111/53; TEMP 97.8; O2SAT 96
[2022-10-17] MEDS ORDERED: PROC10TA5 PO (14:24)
[2022-10-17] MEDS ORDERED: LIDO30CR18 TOP (14:24)
[2022-10-17] MEDS ORDERED: ONDA-84 PO (14:24)
== END 2022-10-13 14:10 | disposition home or self-care (01) ==
LOC: M IRPRO 11:18 → M ED INP 18:08 → M PCU 18:21
PROVIDERS: ADMIT Student in an Organized Health Care Education/Training Program; ATTEND Student in an Organized Health Care Education/Training Program
DX: C90.00 Multiple myeloma not having achieved remission (principal); M54.9 Dorsalgia, unspecified; I15.8 Other secondary hypertension; Z85.3 Personal history of malignant neoplasm of breast; E78.5 Hyperlipidemia, unspecified; D64.9 Anemia, unspecified; Z79.82 Long term (current) use of aspirin; Z79.899 Other long term (current) drug therapy
CPT/HCPCS: 36415; 36561; 71045; 71275; 74175; 80048; 84484; 85027; 86850; 86870; 86900; 86901; 93005; 96374; 96375; 99152; 99153; C1769; C1788; C1894; G0378; J0360; J0690; J2250; J2405; J3010; Q9967

== ENCOUNTER → 2023-01-02 | Outpatient (CLI) | payer MEDICARE, BC, OTHER ==
[~2023-01-02] MED LIST changes: +CYTOXIN; +LIDO30CR18 TOP; +MAGN250T7 PO; +MECL-209 PO; -MECL1TAB31 PO; +ONDA-84 PO; +PROC10TA5 PO; +[UNRECOGNIZED DRUG - CODE] IV
== END ==
LOC: M WHC 09:45
PROVIDERS: ATTEND Internal Medicine Medical Oncology
DX: Z12.31 Encounter for screening mammogram for malignant neoplasm of breast (principal); Z85.3 Personal history of malignant neoplasm of breast

== ENCOUNTER 2023-01-05 09:51 | Inpatient (IN) | payer MEDICARE, BC, OTHER ==
[~2023-01-05] VITALS: Ht 154.9 cm; Wt 60.3 kg
[2023-01-05] VITALS (15 sets, daily range): BP systolic 87–158; BP diastolic 49–72; TEMP 97–98.5; O2SAT 88–95
[~2023-01-05 09:51] MED LIST changes: -CYTOXIN; -[UNRECOGNIZED DRUG - CODE] IV
[2023-01-05] MEDS ORDERED: LISI5TAB11 PO (09:59)
[2023-01-05] MEDS ORDERED: CYTOXIN (09:59)
[2023-01-05] MEDS ORDERED: [UNRECOGNIZED DRUG - CODE] IV (09:59)
[2023-01-05] MEDS ORDERED: ACETAMINOPHEN TAB 650MG DOSE (2X325MG) PO ONE (10:45)
[2023-01-05] MEDS ORDERED: NS 1,000 ML IV ONE (10:45)
[2023-01-05] MEDS: SODIUM CHLORIDE 0.9% INJ 10 ML SYR IV PRN (10:57)
[2023-01-05 11:21] LABS: BASO % 0.3 % (0.0-1.0); HEMATOCRIT 30.6 % (36.0-47.0); HEMOGLOBIN 10.3 g/dl (12.0-15.5); LYMPH # 0.4 10^3/uL (1.5-5.0); LYMPH % 3.4 % (24.0-44.0); MEAN CORPUSCULAR HGB CONC 33.7 g/dl (32.0-36.5); MONO # 1.3 10^3/uL (0.0-0.8); MONO % 11.3 % (2.0-8.0); NEUTROPHILS # 9.7 10^3/uL (1.5-8.5); NEUTROPHILS % 81.4 % (36.0-66.0); PLATELET COUNT, AUTOMATED 266 10^3/uL (150-450); RED BLOOD COUNT 3.03 10^6/uL (4.00-5.40); WHITE BLOOD COUNT 11.9 10^3/uL (4.0-10.0)
[2023-01-05] MEDS ORDERED: cefTRIAXone SOD 2 GM in D5W MINI-BAG PLUS 50 ML IV ONE (11:45)
[2023-01-05] MEDS ORDERED: NS 1,980 ML in IV 1 EA IV ONE (11:45)
[2023-01-05] MEDS ORDERED: ISOVUE-370 76% 100ML VIAL As Ordered ONE (11:49)
[2023-01-05 12:06] LABS: ALBUMIN 2.9 G/DL (3.2-5.2); BILIRUBIN,DIRECT 0.2 MG/DL (<0.4); BILIRUBIN,TOTAL 0.6 MG/DL (0.3-1.2); CALCIUM LEVEL 8.3 MG/DL (8.3-10.6); CREATININE FOR GFR 1.83 MG/DL (0.55-1.30); GLOMERULAR FILTRATION RATE 28.8 (>39); POTASSIUM SERUM 4.3 MMOL/L (3.5-5.1); TOTAL PROTEIN 5.3 G/DL (5.7-8.2)
[2023-01-05] MEDS ORDERED: MED REC IN PROGRESS XX SCH (12:40)
[2023-01-05 12:50] LABS: C REACTIVE PROTEIN QUANTITATIV 8.4 MG/DL (<1.0)
[2023-01-05 13:03] LABS: PROCALCITONIN 1.82 ng/ml
[2023-01-05] MEDS ORDERED: LEVALBUTEROL 1.25MG 0.5ML CONCENTRATE NEB NEB PRN (13:15)
[2023-01-05] MEDS ORDERED: PIPERACILLIN/TAZOBACTAM SOD 3.375 GM in D5W MINI-BAG PLUS 50 ML IV SCH (13:15)
[2023-01-05] MEDS ORDERED: NS 1,000 ML IV SCH (13:15)
[2023-01-05] MEDS ORDERED: ONDANSETRON 4MG 2ML VIAL IV PRN (13:15)
[2023-01-05] MEDS ORDERED: VANCOMYCIN HCL 750 MG, VIAL MATE ADAPTER 1 EACH in D5W 250 ML IV SCH (13:15)
[2023-01-05] MEDS ORDERED: ACETAMINOPHEN TAB 650MG DOSE (2X325MG) PO PRN (13:15)
[2023-01-05] MEDS ORDERED: MED REC CURRENTLY UNOBTAINABLE XX SCH (13:30)
[2023-01-05 13:41] LABS: INR 1.3; PROTHROMBIN TIME 15.8 SECONDS (12.5-14.5)
[2023-01-05 13:42] LABS: PARTIAL THROMBOPLASTIN TIME 32.2 SECONDS (24.8-34.2)
[2023-01-05] MEDS ORDERED: ASPI81TA26 PO (14:05)
[2023-01-05] MEDS ORDERED: HOME MED LIST COMPLETE! XX SCH (14:10)
[2023-01-05 15:09] LABS: INR 1.3; PARTIAL THROMBOPLASTIN TIME 25.3 SECONDS (24.8-34.2); PROTHROMBIN TIME 15.8 SECONDS (12.5-14.5)
[2023-01-05] MEDS ORDERED: VANCOMYCIN INTERMITTENT/PULSE DOSING BY CLINICAL PHARMACIST PER DOSING PROTOCOL XX SCH (15:30)
[2023-01-05] MEDS ORDERED: methylPREDNISolone 125MG 2ML VIAL IV ONE (16:00)
[2023-01-05] MEDS: LEVALBUTEROL 1.25MG 0.5ML CONCENTRATE NEB NEB SCH ×2 (17:26→19:46)
[2023-01-05] MEDS ORDERED: FUROSEMIDE 100MG/10ML VIAL IV ONE (17:30)
[2023-01-05] MEDS: PIPERACILLIN/TAZOBACTAM SOD 3.375 GM in D5W MINI-BAG PLUS 50 ML IV SCH ×2 (17:39→21:01)
[2023-01-05] MEDS: LACTOBACILLUS ACIDOPHILUS CAP (BACID) PO SCH (17:44)
[2023-01-05 17:52] LABS: ABG BASE EXCESS -10.8 (-2.0-2.0); ABG HCO3 13.6 MMOL/L (22.0-26.0); ABG O2 SATURATION 97.1 % (95.0-99.0); ABG PARTIAL PRESSURE CO2 26.2 mmHg (35.0-45.0); ABG PARTIAL PRESSURE O2 101.1 mmHg (75.0-100.0); ABG STANDARD HCO3 15.9 MMOL/L. (22.0-26.0); ABG TOTAL CO2 14.4 MMOL/L (23.0-31.0); ABG pH (ARTERIAL) 7.333 UNITS (7.350-7.450)
[2023-01-05] MEDS ORDERED: VANCOMYCIN HCL 750 MG, VIAL MATE ADAPTER 1 EACH in D5W 250 ML IV ONE ×6 (20:00)
[2023-01-05] MEDS: DOXYCYCLINE HYCLATE 100MG TABLET PO SCH (20:52)
[2023-01-05] MEDS: ACYCLOVIR 200 MG CAPSULE PO SCH (20:52)
[2023-01-05] MEDS ORDERED: FUROSEMIDE 40MG/4ML VIAL IV ONE (21:00)
[2023-01-05] MEDS ORDERED: metOLazone 2.5 MG TAB PO ONE (21:00)
[2023-01-05] MEDS: HEPARIN SOD (PORCINE) 5000UNITS/ML 1ML VIAL/SYRINGE SQ SCH (21:01)
[2023-01-06] VITALS (39 sets, daily range): BP systolic 82–126; BP diastolic 42–71; TEMP 96.7–98.3; O2SAT 87–95
[2023-01-06] MEDS: methylPREDNISolone 125MG 2ML VIAL IV SCH ×2 (00:51→09:14)
[2023-01-06] MEDS: PIPERACILLIN/TAZOBACTAM SOD 3.375 GM in D5W MINI-BAG PLUS 50 ML IV SCH ×4 (03:50→20:47)
[2023-01-06 05:23] LABS: HEMATOCRIT 27.4 % (36.0-47.0); HEMOGLOBIN 9.1 g/dl (12.0-15.5); MEAN CORPUSCULAR HEMOGLOBIN 33.7 pg (27.0-33.0); MEAN CORPUSCULAR HGB CONC 33.2 g/dl (32.0-36.5); MEAN CORPUSCULAR VOLUME 101.5 fl (80.0-96.0); WHITE BLOOD COUNT 8.5 10^3/uL (4.0-10.0)
[2023-01-06 05:24] LABS: PLATELET COUNT, AUTOMATED 149 10^3/uL (150-450)
[2023-01-06 05:50] LABS: VANCOMYCIN LEVEL TROUGH 23.3 UG/ML (10.0-20.0)
[2023-01-06 05:55] LABS: ALBUMIN 2.2 G/DL (3.2-5.2); BILIRUBIN,TOTAL 0.4 MG/DL (0.3-1.2); CREATININE FOR GFR 1.75 MG/DL (0.55-1.30); GLOMERULAR FILTRATION RATE 30.3 (>39); POTASSIUM SERUM 3.5 MMOL/L (3.5-5.1); TOTAL PROTEIN 4.4 G/DL (5.7-8.2)
[2023-01-06] MEDS: HEPARIN SOD (PORCINE) 5000UNITS/ML 1ML VIAL/SYRINGE SQ SCH ×3 (06:19→20:47)
[2023-01-06] MEDS: LEVALBUTEROL 1.25MG 0.5ML CONCENTRATE NEB NEB SCH ×4 (07:29→20:08)
[2023-01-06] MEDS: NOREPINEPHRINE 4MG IN D5 250ML 4 MG in IV 1 EA IV SCH ×6 (07:49→20:48)
[2023-01-06] MEDS ORDERED: PANTOPRAZOLE 40MG VIAL IV SCH (09:00)
[2023-01-06] MEDS: DOXYCYCLINE HYCLATE 100MG TABLET PO SCH ×2 (09:15→20:46)
[2023-01-06] MEDS: PANTOPRAZOLE 40MG TAB (PROTONIX) PO SCH (09:15)
[2023-01-06] MEDS: LACTOBACILLUS ACIDOPHILUS CAP (BACID) PO SCH ×2 (09:15→18:00)
[2023-01-06] MEDS: POTASSIUM CHLORIDE 10MEQ SR TABLET PO SCH (09:15)
[2023-01-06] MEDS: ACYCLOVIR 200 MG CAPSULE PO SCH ×2 (09:15→20:47)
[2023-01-06] MEDS ORDERED: FUROSEMIDE injection 250 MG in D5W 225 ML IV SCH (10:00)
[2023-01-07] VITALS (13 sets, daily range): BP systolic 97–116; BP diastolic 50–57; TEMP 97.6–98; O2SAT 90–100
[2023-01-07] MEDS: PIPERACILLIN/TAZOBACTAM SOD 3.375 GM in D5W MINI-BAG PLUS 50 ML IV SCH ×4 (04:50→22:18)
[2023-01-07 05:05] LABS: ALBUMIN 2.4 G/DL (3.2-5.2); BILIRUBIN,TOTAL 0.5 MG/DL (0.3-1.2); CALCIUM LEVEL 7.3 MG/DL (8.3-10.6); CREATININE FOR GFR 1.41 MG/DL (0.55-1.30); GLOMERULAR FILTRATION RATE 38.9 (>39); POTASSIUM SERUM 2.7 MMOL/L (3.5-5.1); TOTAL PROTEIN 4.7 G/DL (5.7-8.2)
[2023-01-07] MEDS: HEPARIN SOD (PORCINE) 5000UNITS/ML 1ML VIAL/SYRINGE SQ SCH ×3 (05:35→22:18)
[2023-01-07] MEDS ORDERED: POTASSIUM CHLORIDE 10% LIQ 20MEQ/15ML UDC PO ONE (06:00)
[2023-01-07] MEDS: LEVALBUTEROL 1.25MG 0.5ML CONCENTRATE NEB NEB SCH (07:15)
[2023-01-07] MEDS: DOXYCYCLINE HYCLATE 100MG TABLET PO SCH ×2 (08:04→20:11)
[2023-01-07] MEDS: ACYCLOVIR 200 MG CAPSULE PO SCH ×2 (08:04→20:11)
[2023-01-07] MEDS: PANTOPRAZOLE 40MG TAB (PROTONIX) PO SCH (08:04)
[2023-01-07] MEDS: POTASSIUM CHLORIDE 10MEQ SR TABLET PO SCH (08:05)
[2023-01-07] MEDS: LACTOBACILLUS ACIDOPHILUS CAP (BACID) PO SCH ×2 (08:05→17:44)
[2023-01-07] MEDS: KCL 10MEQ/100ML SWI (KRUN) 10 MEQ in IV 1 EA IV SCH ×4 (08:54→12:00)
[2023-01-07] MEDS ORDERED: LEVALBUTEROL 1.25MG 0.5ML CONCENTRATE NEB INH PRN (10:55)
[2023-01-07 13:19] LABS: HEMATOCRIT 25.5 % (36.0-47.0); HEMOGLOBIN 8.6 g/dl (12.0-15.5); MEAN CORPUSCULAR HEMOGLOBIN 33.7 pg (27.0-33.0); MEAN CORPUSCULAR HGB CONC 33.7 g/dl (32.0-36.5); PLATELET COUNT, AUTOMATED 117 10^3/uL (150-450); RED BLOOD COUNT 2.55 10^6/uL (4.00-5.40); WHITE BLOOD COUNT 13.8 10^3/uL (4.0-10.0)
[2023-01-07] MEDS: FUROSEMIDE 40MG/4ML VIAL IV SCH (14:50)
[2023-01-07 15:52] LABS: CALCIUM LEVEL 7.6 MG/DL (8.3-10.6); CREATININE FOR GFR 1.01 MG/DL (0.55-1.30); GLOMERULAR FILTRATION RATE 57.2 (>39); MAGNESIUM LEVEL 2.2 MG/DL (1.8-2.4); PHOSPHORUS LEVEL 1.7 MG/DL (2.4-5.1); POTASSIUM SERUM 3.6 MMOL/L (3.5-5.1)
[2023-01-08] VITALS (10 sets, daily range): BP systolic 106–123; BP diastolic 52–63; TEMP 97.3–97.9; O2SAT 85–97
[2023-01-08] MEDS: PIPERACILLIN/TAZOBACTAM SOD 3.375 GM in D5W MINI-BAG PLUS 50 ML IV SCH ×4 (04:02→21:20)
[2023-01-08 04:49] LABS: TOTAL IRON BINDING CAPACITY 256 UG/DL (250-425)
[2023-01-08 04:50] LABS: ALBUMIN 2.3 G/DL (3.2-5.2); ALKALINE PHOSPHATASE 106 U/L (46-116); ALT/SGPT 73 U/L (7.0-40); AST/SGOT 40 U/L (<34); BILIRUBIN,TOTAL 0.7 MG/DL (0.3-1.2); BLOOD UREA NITROGEN 35 MG/DL (9-23); CALCIUM LEVEL 7.8 MG/DL (8.3-10.6); CARBON DIOXIDE LEVEL 26 MMOL/L (20-31); CHLORIDE LEVEL 108 MMOL/L (98-107); CREATININE FOR GFR 0.89 MG/DL (0.55-1.30); GLOMERULAR FILTRATION RATE > 60.0 (>39); GLUCOSE, FASTING 95 MG/DL (74-106); IRON (FE) 79 UG/DL (50-170); PERCENT SATURATION 30.9 % (13.2-45.0); POTASSIUM SERUM 3.1 MMOL/L (3.5-5.1); SODIUM LEVEL 141 MMOL/L (136-145); TOTAL PROTEIN 4.7 G/DL (5.7-8.2)
[2023-01-08] MEDS: HEPARIN SOD (PORCINE) 5000UNITS/ML 1ML VIAL/SYRINGE SQ SCH ×3 (05:59→21:19)
[2023-01-08] MEDS ORDERED: POTASSIUM CHLORIDE 10MEQ SR TABLET PO ONE ×2 (06:00→08:00)
[2023-01-08 07:55] LABS: HEMATOCRIT 24.2 % (36.0-47.0); HEMOGLOBIN 8.3 g/dl (12.0-15.5); MEAN CORPUSCULAR HGB CONC 34.3 g/dl (32.0-36.5); MEAN CORPUSCULAR VOLUME 99.2 fl (80.0-96.0); PLATELET COUNT, AUTOMATED 122 10^3/uL (150-450); RED BLOOD COUNT 2.44 10^6/uL (4.00-5.40); WHITE BLOOD COUNT 8.4 10^3/uL (4.0-10.0)
[2023-01-08] MEDS: FUROSEMIDE 40MG/4ML VIAL IV SCH (08:59)
[2023-01-08] MEDS: DOXYCYCLINE HYCLATE 100MG TABLET PO SCH ×2 (08:59→21:19)
[2023-01-08] MEDS: LACTOBACILLUS ACIDOPHILUS CAP (BACID) PO SCH ×2 (08:59→18:12)
[2023-01-08] MEDS: ACYCLOVIR 200 MG CAPSULE PO SCH ×2 (08:59→21:19)
[2023-01-08] MEDS: POTASSIUM CHLORIDE 10MEQ SR TABLET PO SCH (09:00)
[2023-01-08] MEDS: PANTOPRAZOLE 40MG TAB (PROTONIX) PO SCH (09:00)
[2023-01-08] MEDS ORDERED: FUROSEMIDE 40MG/4ML VIAL IV SCH (09:00)
[2023-01-08] MEDS ORDERED: POTASSIUM PHOSPHATE INJ 20 MMOL in D5W 250 ML IV ONE (13:00)
[2023-01-08] MEDS: SODIUM CHLORIDE 0.9% INJ 10 ML SYR IV PRN (16:11)
[2023-01-08 18:01] LABS: BLOOD UREA NITROGEN 30 MG/DL (9-23); CALCIUM LEVEL 7.7 MG/DL (8.3-10.6); CARBON DIOXIDE LEVEL 24 MMOL/L (20-31); CHLORIDE LEVEL 106 MMOL/L (98-107); CREATININE FOR GFR 0.88 MG/DL (0.55-1.30); GLOMERULAR FILTRATION RATE > 60.0 (>39); GLUCOSE, FASTING 88 MG/DL (74-106); POTASSIUM SERUM 3.4 MMOL/L (3.5-5.1); SODIUM LEVEL 140 MMOL/L (136-145)
[2023-01-09] MEDS: PIPERACILLIN/TAZOBACTAM SOD 3.375 GM in D5W MINI-BAG PLUS 50 ML IV SCH ×2 (05:34→10:29)
[2023-01-09] MEDS: HEPARIN SOD (PORCINE) 5000UNITS/ML 1ML VIAL/SYRINGE SQ SCH (05:34)
[2023-01-09 06:00] LABS: HEMATOCRIT 24.8 % (36.0-47.0); HEMOGLOBIN 8.2 g/dl (12.0-15.5); MEAN CORPUSCULAR HEMOGLOBIN 32.9 pg (27.0-33.0); MEAN CORPUSCULAR HGB CONC 33.1 g/dl (32.0-36.5); MEAN CORPUSCULAR VOLUME 99.6 fl (80.0-96.0); PLATELET COUNT, AUTOMATED 135 10^3/uL (150-450); RED BLOOD COUNT 2.49 10^6/uL (4.00-5.40); WHITE BLOOD COUNT 5.2 10^3/uL (4.0-10.0)
[2023-01-09 06:14] VITALS: BP 102/45; TEMP 97.9; O2SAT 96
[2023-01-09 06:29] LABS: ALBUMIN 2.5 G/DL (3.2-5.2); ALKALINE PHOSPHATASE 139 U/L (46-116); ALT/SGPT 55 U/L (7.0-40); AST/SGOT 33 U/L (<34); BILIRUBIN,TOTAL 0.5 MG/DL (0.3-1.2); BLOOD UREA NITROGEN 26 MG/DL (9-23); CARBON DIOXIDE LEVEL 24 MMOL/L (20-31); CHLORIDE LEVEL 109 MMOL/L (98-107); CREATININE FOR GFR 0.76 MG/DL (0.55-1.30); GLOMERULAR FILTRATION RATE > 60.0 (>39); GLUCOSE, FASTING 92 MG/DL (74-106); PHOSPHORUS LEVEL 2.7 MG/DL (2.4-5.1); POTASSIUM SERUM 3.4 MMOL/L (3.5-5.1); SODIUM LEVEL 141 MMOL/L (136-145); TOTAL PROTEIN 4.7 G/DL (5.7-8.2)
[2023-01-09] MEDS: LACTOBACILLUS ACIDOPHILUS CAP (BACID) PO SCH (08:48)
[2023-01-09] MEDS: ACYCLOVIR 200 MG CAPSULE PO SCH (08:48)
[2023-01-09] MEDS: POTASSIUM CHLORIDE 10MEQ SR TABLET PO SCH (08:48)
[2023-01-09] MEDS: DOXYCYCLINE HYCLATE 100MG TABLET PO SCH (08:48)
[2023-01-09] MEDS: PANTOPRAZOLE 40MG TAB (PROTONIX) PO SCH (08:48)
[2023-01-09] MEDS ORDERED: FUROSEMIDE 20 MG TAB PO SCH (09:00)
[2023-01-09] MEDS ORDERED: POTASSIUM CHLORIDE 10MEQ SR TABLET PO ONE (09:00)
[2023-01-09 09:45] VITALS: O2SAT 90
[2023-01-09] MEDS ORDERED: RISATAB3 PO (10:32)
[2023-01-09] MEDS ORDERED: AMOX875T2 PO (10:34)
[2023-01-09] MEDS: SODIUM CHLORIDE 0.9% INJ 10 ML SYR IV PRN (11:50)
== END 2023-01-09 12:10 | disposition home or self-care (01) | DRG 871 ==
LOC: M ED 09:51 → M ED INP 13:13 → ENRESERV 15:09 → M PCU 17:33 → M ICU 19:22 → M MSPAV 01-08 13:04
PROVIDERS: ADMIT Internal Medicine; ATTEND Internal Medicine
DX: A41.9 Sepsis, unspecified organism (principal); R65.21 Severe sepsis with septic shock; J18.9 Pneumonia, unspecified organism; J81.0 Acute pulmonary edema; J96.21 Acute and chronic respiratory failure with hypoxia; D84.9 Immunodeficiency, unspecified; E87.20 Acidosis, unspecified; N17.9 Acute kidney failure, unspecified; C90.00 Multiple myeloma not having achieved remission; J90 Pleural effusion, not elsewhere classified; I10 Essential (primary) hypertension; D64.9 Anemia, unspecified; E83.42 Hypomagnesemia; E78.5 Hyperlipidemia, unspecified; Z92.21 Personal history of antineoplastic chemotherapy; Z85.3 Personal history of malignant neoplasm of breast; E87.6 Hypokalemia; E83.39 Other disorders of phosphorus metabolism; Z92.3 Personal history of irradiation; Z88.5 Allergy status to narcotic agent; Z79.899 Other long term (current) drug therapy; Z79.82 Long term (current) use of aspirin; Z96.652 Presence of left artificial knee joint

== ENCOUNTER → 2023-01-05 | Outpatient (REF) | payer MEDICARE, BC, OTHER | LOC: M LAB REF 11:26 | PROVIDERS: ATTEND Internal Medicine Medical Oncology | DX: C90.00 Multiple myeloma not having achieved remission (principal) ==

== ENCOUNTER 2023-01-19 09:43 | Inpatient (IN) | payer MEDICARE, BC, OTHER ==
[~2023-01-19] VITALS: Ht 154.9 cm; Wt 62.8 kg
[2023-01-19] MEDS: DOXYCYCLINE HYCLATE 100MG TABLET PO SCH ×2 (09:00→21:47)
[~2023-01-19 09:43] MED LIST changes: +AMOX875T2 PO; +CYTOXIN; +RISATAB3 PO; +[UNRECOGNIZED DRUG - CODE] IV
[2023-01-19 11:09] LABS: VENOUS BASE EXCESS -5.7 (-2.0-2.0); VENOUS HCO3 19.4 MMOL/L (23.0-27.0); VENOUS PARTIAL PRESSURE CO2 36.5 mmHg (38.0-50.0); VENOUS PARTIAL PRESSURE O2 29.5 mmHg (30.0-50.0); VENOUS PH 7.343 UNITS (7.330-7.430); VENOUS STANDARD HCO3 18.9 MMOL/L; VENOUS TOTAL CO2 20.5 MMOL/L (24.0-28.0)
[2023-01-19 11:34] LABS: BASO % 0.1 % (0.0-1.0); HEMATOCRIT 31.4 % (36.0-47.0); HEMOGLOBIN 10.2 g/dl (12.0-15.5); LYMPH # 0.4 10^3/uL (1.5-5.0); LYMPH % 2.4 % (24.0-44.0); MEAN CORPUSCULAR HEMOGLOBIN 32.7 pg (27.0-33.0); MEAN CORPUSCULAR HGB CONC 32.5 g/dl (32.0-36.5); MEAN CORPUSCULAR VOLUME 100.6 fl (80.0-96.0); MONO # 1.3 10^3/uL (0.0-0.8); MONO % 7.3 % (2.0-8.0); NEUTROPHILS # 15.3 10^3/uL (1.5-8.5); NEUTROPHILS % 86.2 % (36.0-66.0); PLATELET COUNT, AUTOMATED 302 10^3/uL (150-450); RED BLOOD COUNT 3.12 10^6/uL (4.00-5.40); WHITE BLOOD COUNT 17.7 10^3/uL (4.0-10.0)
[2023-01-19 11:39] LABS: INR 1.03; PROTHROMBIN TIME 13.2 SECONDS (12.5-14.5)
[2023-01-19] MEDS ORDERED: NS 1,880 ML in IV 1 EA IV ONE (11:40)
[2023-01-19] MEDS ORDERED: cefTRIAXone SOD 2 GM in D5W MINI-BAG PLUS 50 ML IV ONE (11:40)
[2023-01-19 11:46] LABS: THYROID STIMULATING HORMONE 1.987 uIU/ML (0.55-4.78)
[2023-01-19 11:50] LABS: ALBUMIN 3.1 G/DL (3.2-5.2); BILIRUBIN,DIRECT 0.1 MG/DL (<0.4); BILIRUBIN,TOTAL 0.4 MG/DL (0.3-1.2); CALCIUM LEVEL 9.4 MG/DL (8.3-10.6); CREATININE FOR GFR 2.21 MG/DL (0.55-1.30); GLOMERULAR FILTRATION RATE 23.2 (>39); POTASSIUM SERUM 4.5 MMOL/L (3.5-5.1); TOTAL PROTEIN 5.6 G/DL (5.7-8.2)
[2023-01-19] MEDS: MIDODRINE 5 MG TAB PO SCH ×2 (12:00→17:48)
[2023-01-19] MEDS ORDERED: ONDANSETRON 4MG 2ML VIAL IV PRN (13:20)
[2023-01-19] MEDS ORDERED: FLEET ENEMA PR PRN (13:20)
[2023-01-19] MEDS ORDERED: SENOKOT S TAB PO PRN (13:20)
[2023-01-19] MEDS ORDERED: MIRALAX *UNIT DOSE* 17GM PACKET PO PRN (13:20)
[2023-01-19] MEDS ORDERED: IPRATROPIUM 0.5MG/ALBUTEROL 2.5MG INH SOL UD 3ML (DUONEB) NEB PRN (13:20)
[2023-01-19] MEDS ORDERED: ACETAMINOPHEN TAB 650MG DOSE (2X325MG) PO PRN (13:20)
[2023-01-19] MEDS ORDERED: MED REC IN PROGRESS XX SCH (14:05)
[2023-01-19] MEDS ORDERED: ACYC1TAB PO (14:23)
[2023-01-19] MEDS ORDERED: ONDA-84 PO (14:23)
[2023-01-19] MEDS ORDERED: POTA-151 PO (14:24)
[2023-01-19] MEDS ORDERED: PROC10TA5 PO (14:25)
[2023-01-19] MEDS ORDERED: HOME MED LIST COMPLETE! XX SCH (14:30)
[2023-01-19 15:05] VITALS: BP 110/52; TEMP 98.1; O2SAT 92
[2023-01-19] MEDS ORDERED: EMLA CREAM 5GM TUBE (LIDOCAINE/PRILOCAINE) TOP SCH (16:00)
[2023-01-19] MEDS: IPRATROPIUM 0.5MG/ALBUTEROL 2.5MG INH SOL UD 3ML (DUONEB) NEB SCH ×2 (16:19→20:19)
[2023-01-19] MEDS: PROCHLORPERAZINE 5MG TAB PO SCH ×2 (17:47→23:55)
[2023-01-19] MEDS: PIPERACILLIN/TAZOBACTAM SOD 3.375 GM in D5W MINI-BAG PLUS 50 ML IV SCH ×2 (17:47→23:55)
[2023-01-19] MEDS: LACTOBACILLUS ACIDOPHILUS CAP (BACID) PO SCH ×2 (17:48→21:47)
[2023-01-19 19:43] VITALS: BP 107/52; TEMP 97.9; O2SAT 90
[2023-01-20] VITALS (13 sets, daily range): BP systolic 88–113; BP diastolic 45–64; TEMP 97.3–98.3; O2SAT 86–98
[2023-01-20] MEDS: PROCHLORPERAZINE 5MG TAB PO SCH ×4 (05:10→23:50)
[2023-01-20] MEDS: PIPERACILLIN/TAZOBACTAM SOD 3.375 GM in D5W MINI-BAG PLUS 50 ML IV SCH ×2 (05:10→09:59)
[2023-01-20] MEDS ORDERED: NS 1,000 ML IV ONE ×3 (06:55→15:05)
[2023-01-20 07:31] LABS: BASO % 0.2 % (0.0-1.0); HEMATOCRIT 27.9 % (36.0-47.0); LYMPH # 0.2 10^3/uL (1.5-5.0); LYMPH % 2.5 % (24.0-44.0); MEAN CORPUSCULAR HEMOGLOBIN 32.4 pg (27.0-33.0); MEAN CORPUSCULAR HGB CONC 32.3 g/dl (32.0-36.5); MEAN CORPUSCULAR VOLUME 100.4 fl (80.0-96.0); MONO # 0.6 10^3/uL (0.0-0.8); MONO % 9.5 % (2.0-8.0); NEUTROPHILS # 5.5 10^3/uL (1.5-8.5); NEUTROPHILS % 86.4 % (36.0-66.0); RED BLOOD COUNT 2.78 10^6/uL (4.00-5.40); WHITE BLOOD COUNT 6.4 10^3/uL (4.0-10.0)
[2023-01-20] MEDS: IPRATROPIUM 0.5MG/ALBUTEROL 2.5MG INH SOL UD 3ML (DUONEB) NEB SCH ×4 (07:32→19:37)
[2023-01-20 07:36] LABS: PLATELET COUNT, AUTOMATED 157 10^3/uL (150-450)
[2023-01-20] MEDS: LACTOBACILLUS ACIDOPHILUS CAP (BACID) PO SCH ×4 (07:56→20:25)
[2023-01-20] MEDS: MIDODRINE 5 MG TAB PO SCH ×2 (07:56→11:22)
[2023-01-20] MEDS: SODIUM CHLORIDE 0.9% INJ 10 ML SYR IV SCH (07:56)
[2023-01-20] MEDS: DOXYCYCLINE HYCLATE 100MG TABLET PO SCH ×2 (07:56→20:25)
[2023-01-20] MEDS: OMEGA-3 1000MG CAPSULE PO SCH (07:56)
[2023-01-20] MEDS: MULTIVITAMINS/MINERALS THERAP 1 TAB PO SCH (07:56)
[2023-01-20] MEDS: ASPIRIN 81MG ENTERIC TABLET PO SCH (07:56)
[2023-01-20 08:43] LABS: ERYTHROCYTE SEDIMENTATION RATE 7 mm/hr (0-30)
[2023-01-20] MEDS: SODIUM CHLORIDE 0.9% INJ 10 ML SYR IV PRN (11:22)
[2023-01-20] MEDS ORDERED: cefTRIAXone SOD 2 GM in D5W MINI-BAG PLUS 50 ML IV SCH (12:00)
[2023-01-20 15:03] LABS: CALCIUM LEVEL 8.3 MG/DL (8.8-10.2); CREATININE FOR GFR 2.6 MG/DL (0.7-1.5); GLOMERULAR FILTRATION RATE 19.2 (>39); POTASSIUM SERUM 5.1 MEQ/L (3.6-5.0)
[2023-01-20] MEDS ORDERED: NS 1,000 ML IV SCH (15:05)
[2023-01-20] MEDS ORDERED: LEVALBUTEROL 1.25MG 0.5ML CONCENTRATE NEB INH PRN (15:45)
[2023-01-20] MEDS ORDERED: PATIROMER SORBITEX CALCIUM 8.4 GM POWDER PACKET (VELTASSA) PO ONE (16:00)
[2023-01-20] MEDS: LEVALBUTEROL 1.25MG 0.5ML CONCENTRATE NEB INH SCH ×3 (16:06→23:27)
[2023-01-20 16:13] LABS: ABG BASE EXCESS -7.4 (-2.0-2.0); ABG HCO3 15.9 MMOL/L (22.0-26.0); ABG O2 SATURATION 91.8 % (95.0-99.0); ABG PARTIAL PRESSURE CO2 25.6 mmHg (35.0-45.0); ABG PARTIAL PRESSURE O2 65.6 mmHg (75.0-100.0); ABG STANDARD HCO3 18.3 MMOL/L. (22.0-26.0); ABG TOTAL CO2 16.7 MMOL/L (23.0-31.0); ABG pH (ARTERIAL) 7.412 UNITS (7.350-7.450)
[2023-01-20] MEDS ORDERED: FUROSEMIDE 100MG/10ML VIAL IV ONE (17:00)
[2023-01-20] MEDS ORDERED: CALCIUM GLUCONATE 1,000 MG in D5W MINI-BAG PLUS 100 ML IV ONE (17:00)
[2023-01-20] MEDS: PIPERACILLIN/TAZOBACTAM SOD 2.25 GM in D5W MINI-BAG PLUS 50 ML IV SCH ×2 (18:09→22:15)
[2023-01-20] MEDS: SODIUM BICARBONATE 325 MG TAB PO SCH ×2 (18:37→20:26)
[2023-01-21] VITALS (22 sets, daily range): BP systolic 98–116; BP diastolic 48–56; TEMP 97.3–98.4; O2SAT 83–98
[2023-01-21] MEDS: LEVALBUTEROL 1.25MG 0.5ML CONCENTRATE NEB INH SCH ×3 (03:06→12:00)
[2023-01-21] MEDS: PIPERACILLIN/TAZOBACTAM SOD 2.25 GM in D5W MINI-BAG PLUS 50 ML IV SCH ×4 (04:21→22:08)
[2023-01-21] MEDS: PROCHLORPERAZINE 5MG TAB PO SCH ×3 (05:27→17:03)
[2023-01-21 05:49] LABS: BASO % 0.2 % (0.0-1.0); EOS % 0.7 % (0.0-3.0); HEMATOCRIT 25.4 % (36.0-47.0); HEMOGLOBIN 8.5 g/dl (12.0-15.5); LYMPH # 0.1 10^3/uL (1.5-5.0); LYMPH % 2.1 % (24.0-44.0); MEAN CORPUSCULAR HEMOGLOBIN 32.2 pg (27.0-33.0); MEAN CORPUSCULAR HGB CONC 33.5 g/dl (32.0-36.5); MEAN CORPUSCULAR VOLUME 96.2 fl (80.0-96.0); MONO # 0.5 10^3/uL (0.0-0.8); NEUTROPHILS # 5.4 10^3/uL (1.5-8.5); NEUTROPHILS % 88.2 % (36.0-66.0); PLATELET COUNT, AUTOMATED 110 10^3/uL (150-450); RED BLOOD COUNT 2.64 10^6/uL (4.00-5.40); WHITE BLOOD COUNT 6.1 10^3/uL (4.0-10.0)
[2023-01-21] MEDS: SODIUM CHLORIDE 0.9% INJ 10 ML SYR IV SCH (08:34)
[2023-01-21] MEDS: DOXYCYCLINE HYCLATE 100MG TABLET PO SCH ×2 (08:35→20:32)
[2023-01-21] MEDS: MULTIVITAMINS/MINERALS THERAP 1 TAB PO SCH (08:35)
[2023-01-21] MEDS: LACTOBACILLUS ACIDOPHILUS CAP (BACID) PO SCH ×4 (08:35→20:32)
[2023-01-21] MEDS: ASPIRIN 81MG ENTERIC TABLET PO SCH (08:35)
[2023-01-21] MEDS: IPRATROPIUM 0.5MG/ALBUTEROL 2.5MG INH SOL UD 3ML (DUONEB) NEB SCH ×4 (09:04→20:11)
[2023-01-21 09:11] LABS: CPK CREATINE PHOSPHOKINASE 25 U/L (30-170)
[2023-01-21] MEDS: OMEGA-3 1000MG CAPSULE PO SCH (09:33)
[2023-01-21] MEDS: SODIUM BICARBONATE 325 MG TAB PO SCH ×2 (09:33→20:32)
[2023-01-21] MEDS ORDERED: POTASSIUM CHLORIDE 10MEQ SR TABLET PO ONE (14:00)
[2023-01-22] VITALS (10 sets, daily range): BP systolic 107–119; BP diastolic 54–59; TEMP 96.5–98.6; O2SAT 91–99
[2023-01-22] MEDS: PROCHLORPERAZINE 5MG TAB PO SCH ×5 (00:04→23:43)
[2023-01-22] MEDS: SODIUM CHLORIDE NASAL 0.65% SPRAY BTL (OCEAN) SCH ×3 (01:38→21:46)
[2023-01-22] MEDS: PIPERACILLIN/TAZOBACTAM SOD 2.25 GM in D5W MINI-BAG PLUS 50 ML IV SCH ×4 (04:31→21:46)
[2023-01-22 05:02] LABS: EOS # 0.1 10^3/uL (0.0-0.5); EOS % 1.5 % (0.0-3.0); HEMATOCRIT 23.3 % (36.0-47.0); LYMPH # 0.4 10^3/uL (1.5-5.0); LYMPH % 5.3 % (24.0-44.0); MEAN CORPUSCULAR HEMOGLOBIN 33.2 pg (27.0-33.0); MEAN CORPUSCULAR HGB CONC 34.3 g/dl (32.0-36.5); MEAN CORPUSCULAR VOLUME 96.7 fl (80.0-96.0); MONO # 0.5 10^3/uL (0.0-0.8); MONO % 7.4 % (2.0-8.0); NEUTROPHILS # 5.7 10^3/uL (1.5-8.5); NEUTROPHILS % 84.8 % (36.0-66.0); RED BLOOD COUNT 2.41 10^6/uL (4.00-5.40); WHITE BLOOD COUNT 6.8 10^3/uL (4.0-10.0)
[2023-01-22 05:36] LABS: PLATELET COUNT, AUTOMATED 83 10^3/uL (150-450)
[2023-01-22] MEDS: IPRATROPIUM 0.5MG/ALBUTEROL 2.5MG INH SOL UD 3ML (DUONEB) NEB SCH ×4 (07:21→19:07)
[2023-01-22 08:12] LABS: CREATININE FOR GFR 1.5 MG/DL (0.7-1.5); GLOMERULAR FILTRATION RATE 36.2 (>39)
[2023-01-22 08:13] LABS: CALCIUM LEVEL 8.3 MG/DL (8.8-10.2); POTASSIUM SERUM 3.2 MEQ/L (3.6-5.0)
[2023-01-22] MEDS: MEGESTROL 400MG 10ML SUSP ORAL SYRINGE *DRAW UP EXACT DOSE PO SCH (10:16)
[2023-01-22] MEDS: MULTIVITAMINS/MINERALS THERAP 1 TAB PO SCH (10:17)
[2023-01-22] MEDS: ASPIRIN 81MG ENTERIC TABLET PO SCH (10:17)
[2023-01-22] MEDS: SODIUM BICARBONATE 325 MG TAB PO SCH ×2 (10:17→21:46)
[2023-01-22] MEDS: DOXYCYCLINE HYCLATE 100MG TABLET PO SCH ×2 (10:17→21:46)
[2023-01-22] MEDS: LACTOBACILLUS ACIDOPHILUS CAP (BACID) PO SCH ×4 (10:17→21:46)
[2023-01-22] MEDS: OMEGA-3 1000MG CAPSULE PO SCH (10:17)
[2023-01-22] MEDS ORDERED: POTASSIUM CHLORIDE 10MEQ SR TABLET PO ONE (11:35)
[2023-01-22] MEDS: SODIUM CHLORIDE 0.9% INJ 10 ML SYR IV SCH (12:05)
[2023-01-22] MEDS: SODIUM CHLORIDE 0.9% INJ 10 ML SYR IV PRN ×2 (18:02→22:32)
[2023-01-23] VITALS (20 sets, daily range): BP systolic 140–157; BP diastolic 63–70; TEMP 96.8–98; O2SAT 86–99
[2023-01-23] MEDS: PIPERACILLIN/TAZOBACTAM SOD 2.25 GM in D5W MINI-BAG PLUS 50 ML IV SCH (03:54)
[2023-01-23] MEDS: PROCHLORPERAZINE 5MG TAB PO SCH ×3 (05:37→17:09)
[2023-01-23 06:10] LABS: BASO % 0.2 % (0.0-1.0); EOS # 0.3 10^3/uL (0.0-0.5); EOS % 4.6 % (0.0-3.0); HEMATOCRIT 23.3 % (36.0-47.0); HEMOGLOBIN 7.7 g/dl (12.0-15.5); LYMPH # 0.6 10^3/uL (1.5-5.0); LYMPH % 10.2 % (24.0-44.0); MEAN CORPUSCULAR HEMOGLOBIN 32.8 pg (27.0-33.0); MEAN CORPUSCULAR VOLUME 99.1 fl (80.0-96.0); MONO # 0.6 10^3/uL (0.0-0.8); NEUTROPHILS # 4.2 10^3/uL (1.5-8.5); NEUTROPHILS % 74.3 % (36.0-66.0); PLATELET COUNT, AUTOMATED 110 10^3/uL (150-450); RED BLOOD COUNT 2.35 10^6/uL (4.00-5.40); WHITE BLOOD COUNT 5.7 10^3/uL (4.0-10.0)
[2023-01-23] MEDS: IPRATROPIUM 0.5MG/ALBUTEROL 2.5MG INH SOL UD 3ML (DUONEB) NEB SCH ×4 (07:08→19:37)
[2023-01-23] MEDS: MULTIVITAMINS/MINERALS THERAP 1 TAB PO SCH (08:27)
[2023-01-23] MEDS: OMEGA-3 1000MG CAPSULE PO SCH (08:27)
[2023-01-23] MEDS: MEGESTROL 400MG 10ML SUSP ORAL SYRINGE *DRAW UP EXACT DOSE PO SCH (08:27)
[2023-01-23] MEDS: SODIUM BICARBONATE 325 MG TAB PO SCH (08:27)
[2023-01-23] MEDS: ASPIRIN 81MG ENTERIC TABLET PO SCH (08:27)
[2023-01-23] MEDS: LACTOBACILLUS ACIDOPHILUS CAP (BACID) PO SCH ×4 (08:27→21:52)
[2023-01-23] MEDS: DOXYCYCLINE HYCLATE 100MG TABLET PO SCH ×2 (08:27→21:52)
[2023-01-23] MEDS: SODIUM CHLORIDE NASAL 0.65% SPRAY BTL (OCEAN) SCH ×2 (08:28→21:00)
[2023-01-23] MEDS: PIPERACILLIN/TAZOBACTAM SOD 3.375 GM in D5W MINI-BAG PLUS 50 ML IV SCH ×3 (09:31→21:52)
[2023-01-23] MEDS: SODIUM CHLORIDE 0.9% INJ 10 ML SYR IV SCH (10:45)
[2023-01-23] MEDS ORDERED: POTASSIUM CHLORIDE 10MEQ SR TABLET PO ONE (12:35)
[2023-01-23 13:48] LABS: BLOOD UREA NITROGEN 14 MG/DL (7-21); CREATININE FOR GFR 0.6 MG/DL (0.7-1.5); GLOMERULAR FILTRATION RATE > 60.0 (>39); GLUCOSE, FASTING 89 MG/DL
[2023-01-23 13:49] LABS: CALCIUM LEVEL 7.9 MG/DL (8.8-10.2); CARBON DIOXIDE LEVEL 21 MEQ/L (22-30); CHLORIDE LEVEL 110 MEQ/L (98-107); POTASSIUM SERUM 3.4 MEQ/L (3.6-5.0); SODIUM LEVEL 140 MEQ/L (134-153)
[2023-01-23] MEDS: SODIUM CHLORIDE 0.9% INJ 10 ML SYR IV PRN (16:27)
[2023-01-24] VITALS (17 sets, daily range): BP systolic 126–162; BP diastolic 60–68; TEMP 97.1–98.6; O2SAT 93–99
[2023-01-24] MEDS: PROCHLORPERAZINE 5MG TAB PO SCH ×3 (00:08→12:33)
[2023-01-24] MEDS: PIPERACILLIN/TAZOBACTAM SOD 3.375 GM in D5W MINI-BAG PLUS 50 ML IV SCH ×2 (03:34→10:34)
[2023-01-24 06:30] LABS: BASO % 0.5 % (0.0-1.0); EOS # 0.3 10^3/uL (0.0-0.5); EOS % 6.3 % (0.0-3.0); HEMOGLOBIN 7.8 g/dl (12.0-15.5); LYMPH # 0.6 10^3/uL (1.5-5.0); LYMPH % 13.5 % (24.0-44.0); MEAN CORPUSCULAR HEMOGLOBIN 32.1 pg (27.0-33.0); MEAN CORPUSCULAR HGB CONC 32.5 g/dl (32.0-36.5); MEAN CORPUSCULAR VOLUME 98.8 fl (80.0-96.0); MONO # 0.7 10^3/uL (0.0-0.8); MONO % 15.3 % (2.0-8.0); NEUTROPHILS # 2.8 10^3/uL (1.5-8.5); NEUTROPHILS % 62.4 % (36.0-66.0); PLATELET COUNT, AUTOMATED 124 10^3/uL (150-450); RED BLOOD COUNT 2.43 10^6/uL (4.00-5.40); WHITE BLOOD COUNT 4.4 10^3/uL (4.0-10.0)
[2023-01-24 06:47] LABS: BLOOD UREA NITROGEN 9 MG/DL (9-23); CALCIUM LEVEL 7.7 MG/DL (8.3-10.6); CARBON DIOXIDE LEVEL 22 MMOL/L (20-31); CHLORIDE LEVEL 114 MMOL/L (98-107); CREATININE FOR GFR 0.68 MG/DL (0.55-1.30); GLOMERULAR FILTRATION RATE > 60.0 (>39); GLUCOSE, FASTING 91 MG/DL (74-106); POTASSIUM SERUM 3.8 MMOL/L (3.5-5.1); SODIUM LEVEL 144 MMOL/L (136-145)
[2023-01-24] MEDS: IPRATROPIUM 0.5MG/ALBUTEROL 2.5MG INH SOL UD 3ML (DUONEB) NEB SCH ×2 (07:20→11:09)
[2023-01-24 08:52] LABS: FERRITIN 393.7 NG/ML (3.0-105); PERCENT SATURATION 15.9 %
[2023-01-24] MEDS: MULTIVITAMINS/MINERALS THERAP 1 TAB PO SCH (08:59)
[2023-01-24] MEDS: LACTOBACILLUS ACIDOPHILUS CAP (BACID) PO SCH ×2 (08:59→12:33)
[2023-01-24] MEDS: MEGESTROL 400MG 10ML SUSP ORAL SYRINGE *DRAW UP EXACT DOSE PO SCH (08:59)
[2023-01-24] MEDS: OMEGA-3 1000MG CAPSULE PO SCH (08:59)
[2023-01-24] MEDS: DOXYCYCLINE HYCLATE 100MG TABLET PO SCH (08:59)
[2023-01-24] MEDS: ASPIRIN 81MG ENTERIC TABLET PO SCH (08:59)
[2023-01-24] MEDS: SODIUM CHLORIDE NASAL 0.65% SPRAY BTL (OCEAN) SCH (08:59)
[2023-01-24] MEDS ORDERED: LEVO1TAB40 PO (10:39)
[2023-01-24] MEDS: SODIUM CHLORIDE 0.9% INJ 10 ML SYR IV SCH (11:33)
[2023-01-24 14:27] LABS: BLOOD UREA NITROGEN 24 MG/DL (7-21); CALCIUM LEVEL 8.1 MG/DL (8.8-10.2); CARBON DIOXIDE LEVEL 20 MEQ/L (22-30); CHLORIDE LEVEL 106 MEQ/L (98-107); CREATININE FOR GFR 0.8 MG/DL (0.7-1.5); GLOMERULAR FILTRATION RATE > 60.0 (>39); GLUCOSE, FASTING 90 MG/DL; POTASSIUM SERUM 3.3 MEQ/L (3.6-5.0); SODIUM LEVEL 138 MEQ/L (134-153)
[2023-01-24] MEDS: SODIUM CHLORIDE 0.9% INJ 10 ML SYR IV PRN (14:37)
== END 2023-01-24 16:10 | disposition home or self-care (01) | DRG 871 ==
LOC: M ED 09:43 → M ED INP 09:44 → UNDOADMOB 09:44 → OBSVTOIN 13:16 → M ED INP 13:16 → ENRESERV 13:56 → M ED INP 15:05 → M MS5PR 15:05 → M PCU 01-20 16:13
PROVIDERS: ADMIT General Practice; ATTEND General Practice
PROC: 30233N1 Transfusion of Nonautologous Red Blood Cells into Peripheral Vein, Percutaneous Approach (ICD-10-PCS; principal; 2023-01-24)
DX: A41.9 Sepsis, unspecified organism (principal); J18.9 Pneumonia, unspecified organism; J96.01 Acute respiratory failure with hypoxia; I50.33 Acute on chronic diastolic (congestive) heart failure; C90.00 Multiple myeloma not having achieved remission; N17.9 Acute kidney failure, unspecified; E87.20 Acidosis, unspecified; R74.01 Elevation of levels of liver transaminase levels; I11.0 Hypertensive heart disease with heart failure; R19.7 Diarrhea, unspecified; D69.6 Thrombocytopenia, unspecified; E87.5 Hyperkalemia; E88.09 Other disorders of plasma-protein metabolism, not elsewhere classified; D63.8 Anemia in other chronic diseases classified elsewhere; E78.5 Hyperlipidemia, unspecified; Z85.3 Personal history of malignant neoplasm of breast; Z90.49 Acquired absence of other specified parts of digestive tract; Z96.652 Presence of left artificial knee joint; Z79.82 Long term (current) use of aspirin; Z79.899 Other long term (current) drug therapy; Z88.5 Allergy status to narcotic agent; Z88.8 Allergy status to other drugs, medicaments and biological substances; Z91.048 Other nonmedicinal substance allergy status; Z20.822 Contact with and (suspected) exposure to COVID-19; Z92.3 Personal history of irradiation; Z92.21 Personal history of antineoplastic chemotherapy; Z90.12 Acquired absence of left breast and nipple

== ENCOUNTER 2023-04-06 09:55 | Outpatient (CLI) | payer MEDICARE, BC, OTHER ==
[~2023-04-06] VITALS: Ht 154.9 cm; Wt 60.6 kg
[~2023-04-06 09:55] MED LIST changes: +LASI20TA3 PO; +LEVO1TAB39; +LEVO1TAB40 PO; +LOPE1CAP5 PO; +METH-1164 PO; +MV-M1TAB13 PO; +POTA-298 PO; +QUES4POW PO; +SELF1KIT MC; +SODI650T PO
[2023-04-06 10:30] VITALS: BP 184/76; O2SAT 100
[2023-04-06] MEDS ORDERED: IMMUNE GLOBULIN 10% 10 GM in IV 1 EA IV ONE (10:30)
[2023-04-06 11:30] VITALS: BP 149/69; O2SAT 97
[2023-04-06 12:00] VITALS: BP 137/71; O2SAT 99
[2023-04-06 12:50] VITALS: BP 173/74; O2SAT 100
== END 2023-04-06 12:50 | disposition home or self-care (01) ==
LOC: M INFU 09:55
PROVIDERS: ATTEND Internal Medicine Medical Oncology
DX: D80.1 Nonfamilial hypogammaglobulinemia (principal); Z88.5 Allergy status to narcotic agent; Z88.8 Allergy status to other drugs, medicaments and biological substances; Z91.048 Other nonmedicinal substance allergy status
CPT/HCPCS: 96365; 96366; J1459

== ENCOUNTER → 2023-04-20 | Outpatient (REF) | payer MEDICARE, BC, OTHER ==
[2023-04-20 10:29] LABS: BLOOD UREA NITROGEN 10 MG/DL (9-23); CALCIUM LEVEL 9.5 MG/DL (8.3-10.6); CARBON DIOXIDE LEVEL 28 MMOL/L (20-31); CHLORIDE LEVEL 106 MMOL/L (98-107); CREATININE FOR GFR 0.64 MG/DL (0.55-1.30); GLOMERULAR FILTRATION RATE > 60.0 (>39); GLUCOSE, FASTING 102 MG/DL (74-106); POTASSIUM SERUM 4.8 MMOL/L (3.5-5.1); SODIUM LEVEL 141 MMOL/L (136-145)
== END ==
LOC: M LABWUC 09:33
PROVIDERS: ATTEND Family Medicine
DX: J18.9 Pneumonia, unspecified organism (principal)

== ENCOUNTER 2023-05-04 10:05 | Outpatient (CLI) | payer MEDICARE, BC, OTHER ==
[~2023-05-04] VITALS: Ht 154.9 cm; Wt 60.5 kg
[2023-05-04 10:05] VITALS: BP 195/88; O2SAT 98
[2023-05-04] MEDS: ACETAMINOPHEN TAB 650MG DOSE (2X325MG) PO ONE (10:27)
[2023-05-04] MEDS: diphenhydrAMINE 25MG CAP PO ONE (10:27)
[2023-05-04] MEDS: IMMUNE GLOBULIN 10% 10 GM in IV 1 EA IV ONE (10:29)
[2023-05-04] MEDS: dexAMETHasone 2 MG TAB PO ONE (10:29)
[2023-05-04 11:15] VITALS: BP 181/83; O2SAT 97
[2023-05-04 11:45] VITALS: BP 160/80; O2SAT 100
[2023-05-04] MEDS: SODIUM CHLORIDE 0.9% INJ 10 ML SYR IV PRN (12:19)
[2023-05-04 12:30] VITALS: BP 179/77; O2SAT 99
== END 2023-05-04 12:30 ==
LOC: M INFU 10:05
PROVIDERS: ATTEND Internal Medicine Medical Oncology
DX: D80.0 Hereditary hypogammaglobulinemia (principal); C90.00 Multiple myeloma not having achieved remission; Z88.5 Allergy status to narcotic agent; Z91.048 Other nonmedicinal substance allergy status
CPT/HCPCS: 96365; 96366; J1459

== ENCOUNTER 2023-06-01 10:45 | Outpatient (CLI) | payer MEDICARE, BC, OTHER ==
[~2023-06-01] VITALS: Ht 152.4 cm; Wt 60.2 kg
[2023-06-01 10:45] VITALS: BP 174/84; O2SAT 100
[~2023-06-01 10:45] MED LIST changes: +IMMUNE GLOBULIN 10% 10 GM in IV 1 EA IV ONE
[2023-06-01] MEDS: ACETAMINOPHEN TAB 650MG DOSE (2X325MG) PO ONE (11:02)
[2023-06-01] MEDS: diphenhydrAMINE 25MG CAP PO ONE (11:02)
[2023-06-01] MEDS: dexAMETHasone 4 MG TAB PO ONE (11:02)
[2023-06-01] MEDS: IMMUNE GLOBULIN 10% 10 GM in IV 1 EA IV ONE (11:07)
[2023-06-01 12:59] VITALS: BP 160/92; O2SAT 100
[2023-06-01] MEDS: SODIUM CHLORIDE 0.9% INJ 10 ML SYR IV PRN (13:03)
== END 2023-06-01 13:10 ==
LOC: M INFU 10:45
PROVIDERS: ATTEND Internal Medicine Medical Oncology
DX: D80.1 Nonfamilial hypogammaglobulinemia (principal); Z88.5 Allergy status to narcotic agent; Z88.8 Allergy status to other drugs, medicaments and biological substances; Z91.048 Other nonmedicinal substance allergy status
CPT/HCPCS: 96365; 96366; J1459

== ENCOUNTER 2023-08-08 07:50 | Outpatient (CLI) | payer MEDICARE, BC ==
[~2023-08-08] VITALS: Ht 157.5 cm; Wt 60.0 kg
[~2023-08-08 07:50] MED LIST changes: +ALBUTEROL SULFATE 2.5MG/0.5ML INH NEB SOLN INH PRN; +EPINEPHrine INJ 1 MG/ML 1ML AMP IM PRN; -IMMUNE GLOBULIN 10% 10 GM in IV 1 EA IV ONE; +LEVE750T5 PO; +diphenhydrAMINE 50MG/ML VIAL IV PRN; +methylPREDNISolone 125MG 2ML VIAL IV PRN
[2023-08-08] MEDS ORDERED: NS 1,000 ML IV SCH (08:00)
[2023-08-08] MEDS ORDERED: PILL CUTTER 1 EACH XX PRN (08:00)
[2023-08-08] MEDS: ACETAMINOPHEN TAB 650MG DOSE (2X325MG) PO ONE (08:00)
[2023-08-08] MEDS: diphenhydrAMINE 25MG CAP PO ONE (08:00)
[2023-08-08] MEDS: dexAMETHasone 4 MG TAB PO ONE (08:00)
[2023-08-08 08:23] VITALS: BP 162/70; O2SAT 100
[2023-08-08] MEDS: IMMUNE GLOBULIN 10% 10 GM in IV 1 EA IV ONE (08:33)
[2023-08-08] MEDS: SODIUM CHLORIDE 0.9% INJ 10 ML SYR IV PRN (10:21)
[2023-08-08 10:30] VITALS: BP 148/84; O2SAT 96
== END 2023-08-08 10:30 | disposition home or self-care (01) ==
LOC: M INFU 07:50
PROVIDERS: ATTEND Internal Medicine Medical Oncology
DX: D80.1 Nonfamilial hypogammaglobulinemia (principal); Z88.5 Allergy status to narcotic agent; Z88.8 Allergy status to other drugs, medicaments and biological substances; Z91.09 Other allergy status, other than to drugs and biological substances
CPT/HCPCS: 96365; 96366; J1459

== ENCOUNTER 2023-09-05 07:36 | Outpatient (CLI) | payer MEDICARE, BC ==
[~2023-09-05] VITALS: Ht 157.5 cm; Wt 60.0 kg
[~2023-09-05 07:36] MED LIST changes: +CYCL-707; +NS 1,000 ML IV SCH; +ONDA-282 PO; -ONDA4TAB6 PO
[2023-09-05 08:00] VITALS: BP 168/72; O2SAT 98
[2023-09-05] MEDS: ACETAMINOPHEN 650MG PO PRIOR TO INFUSION PO ONE (08:20)
[2023-09-05] MEDS: dexAMETHasone 4 MG TAB PO ONE (08:20)
[2023-09-05] MEDS: diphenhydrAMINE 25MG PO PRIOR TO INFUSION PO ONE (08:20)
[2023-09-05] MEDS: IMMUNE GLOBULIN 10% 10 GM in IV 1 EA IV ONE (08:23)
[2023-09-05] MEDS ORDERED: SODIUM CHLORIDE 0.9% INJ 10 ML SYR IV SCH (09:00)
[2023-09-05 09:30] VITALS: BP 148/70; O2SAT 99
[2023-09-05 10:10] VITALS: BP 136/80; O2SAT 98
[2023-09-05] MEDS: SODIUM CHLORIDE 0.9% INJ 10 ML SYR IV PRN (10:30)
== END 2023-09-05 10:30 ==
LOC: M INFU 07:36
PROVIDERS: ATTEND Internal Medicine Medical Oncology
DX: D80.1 Nonfamilial hypogammaglobulinemia (principal); Z88.5 Allergy status to narcotic agent; Z88.8 Allergy status to other drugs, medicaments and biological substances; Z91.048 Other nonmedicinal substance allergy status
CPT/HCPCS: 96365; 96366; J1459

== ENCOUNTER 2023-09-13 03:48 | Observation (INO) | payer MEDICARE, BC ==
[~2023-09-13] VITALS: Ht 157.5 cm; Wt 60.5 kg
[~2023-09-13 03:48] MED LIST changes: -ALBUTEROL SULFATE 2.5MG/0.5ML INH NEB SOLN INH PRN; -EPINEPHrine INJ 1 MG/ML 1ML AMP IM PRN; -NS 1,000 ML IV SCH; -diphenhydrAMINE 50MG/ML VIAL IV PRN; -methylPREDNISolone 125MG 2ML VIAL IV PRN
[2023-09-13] MEDS ORDERED: NAPR-885 PO (04:15)
[2023-09-13 04:56] LABS: BASO % 0.5 % (0.0-1.0); EOS # 0.1 10^3/uL (0.0-0.5); EOS % 1.7 % (0.0-3.0); HEMATOCRIT 35.7 % (36.0-47.0); LYMPH # 2.1 10^3/uL (1.5-5.0); LYMPH % 26.2 % (24.0-44.0); MEAN CORPUSCULAR HEMOGLOBIN 31.7 pg (27.0-33.0); MEAN CORPUSCULAR HGB CONC 33.6 g/dl (32.0-36.5); MEAN CORPUSCULAR VOLUME 94.4 fl (80.0-96.0); MONO # 0.6 10^3/uL (0.0-0.8); MONO % 7.1 % (2.0-8.0); NEUTROPHILS # 5.1 10^3/uL (1.5-8.5); NEUTROPHILS % 63.6 % (36.0-66.0); PLATELET COUNT, AUTOMATED 310 10^3/uL (150-450); RED BLOOD COUNT 3.78 10^6/uL (4.00-5.40); WHITE BLOOD COUNT 8.1 10^3/uL (4.0-10.0)
[2023-09-13] MEDS ORDERED: SODIUM CHLORIDE 0.9% INJ 10 ML SYR IV PRN (05:10)
[2023-09-13] MEDS ORDERED: ISOVUE-370 76% 100ML VIAL As Ordered ONE (05:22)
[2023-09-13 05:27] LABS: ALBUMIN 3.9 G/DL (3.2-5.2); ALKALINE PHOSPHATASE 129 U/L (46-116); ALT/SGPT 30 U/L (7.0-40); AST/SGOT 26 U/L (<34); BILIRUBIN,DIRECT < 0.1 MG/DL (<0.4); BILIRUBIN,TOTAL 0.4 MG/DL (0.3-1.2); BLOOD UREA NITROGEN 14 MG/DL (9-23); CALCIUM LEVEL 9.3 MG/DL (8.3-10.6); CARBON DIOXIDE LEVEL 21 MMOL/L (20-31); CHLORIDE LEVEL 113 MMOL/L (98-107); CREATININE FOR GFR 0.65 MG/DL (0.55-1.30); GLOMERULAR FILTRATION RATE > 60.0 (>39); GLUCOSE, FASTING 103 MG/DL (74-106); SODIUM LEVEL 142 MMOL/L (136-145); TOTAL PROTEIN 6.8 G/DL (5.7-8.2)
[2023-09-13] MEDS: LABETALOL 100MG/20ML VIAL IV STA (05:29)
[2023-09-13 05:42] LABS: CK-MB VALUE MASS < 1.0 NG/ML (<3.6)
[2023-09-13 05:44] LABS: CPK CREATINE PHOSPHOKINASE 24 U/L (34-145); MB/CK RELATIVE INDEX 4.16 (< OR =4)
[2023-09-13] MEDS: ONDANSETRON 4MG 2ML VIAL IV ONE (06:10)
[2023-09-13] MEDS ORDERED: METH-1164 PO (06:59)
[2023-09-13] MEDS ORDERED: POTA-298 PO (06:59)
[2023-09-13] MEDS ORDERED: LISI2.5T8 PO (07:00)
[2023-09-13] MEDS ORDERED: HOME MED LIST COMPLETE! XX SCH (07:05)
[2023-09-13] MEDS: ACETAMINOPHEN TAB 650MG DOSE (2X325MG) PO ONE (07:22)
[2023-09-13] MEDS: OMEGA-3 1000MG CAPSULE PO SCH (09:00)
[2023-09-13] MEDS: METOCLOPRAMIDE INJ 10MG/2ML VIAL IV ONE (09:18)
[2023-09-13] MEDS: KETOROLAC 30 MG/ML 1ML VIAL IV ONE (09:18)
[2023-09-13] MEDS ORDERED: methocarbamoL 500 MG TAB PO PRN (10:25)
[2023-09-13] MEDS ORDERED: ACETAMINOPHEN TAB 650MG DOSE (2X325MG) PO PRN (10:35)
[2023-09-13] MEDS: LISINOPRIL *2.5 MG* TAB PO SCH (10:53)
[2023-09-13] MEDS: ASPIRIN 81MG ENTERIC TABLET PO SCH (11:00)
[2023-09-13] MEDS: levETIRAcetam 250MG TABLET (KEPPRA) PO SCH (11:00)
[2023-09-13] MEDS: POTASSIUM CHLORIDE 10MEQ SR TABLET PO SCH (11:00)
[2023-09-13] MEDS: ENOXAPARIN 40MG/0.4ML SYRINGE (J1650 PER 10MG) SC SCH (11:01)
[2023-09-13] MEDS: NS 1,000 ML IV SCH (12:59)
[2023-09-13 13:30] VITALS: BP 124/60; TEMP 97.6; O2SAT 96
[2023-09-13 16:00] VITALS: BP 110/48; TEMP 98.1; O2SAT 97
[2023-09-13 19:08] VITALS: BP 122/58; TEMP 97.5; O2SAT 96
[2023-09-13 20:00] VITALS: BP 129/58; TEMP 97.2; O2SAT 97
[2023-09-14] VITALS: BP 97/49; TEMP 98.1; O2SAT 95
[2023-09-14 04:45] VITALS: BP 105/51; TEMP 98.1; O2SAT 99
[2023-09-14 06:59] LABS: BASO % 0.2 % (0.0-1.0); EOS # 0.2 10^3/uL (0.0-0.5); HEMATOCRIT 29.1 % (36.0-47.0); LYMPH # 1.4 10^3/uL (1.5-5.0); LYMPH % 28.5 % (24.0-44.0); MEAN CORPUSCULAR HEMOGLOBIN 32.5 pg (27.0-33.0); MEAN CORPUSCULAR HGB CONC 33.7 g/dl (32.0-36.5); MEAN CORPUSCULAR VOLUME 96.4 fl (80.0-96.0); MONO # 0.4 10^3/uL (0.0-0.8); MONO % 7.8 % (2.0-8.0); NEUTROPHILS % 59.1 % (36.0-66.0); PLATELET COUNT, AUTOMATED 229 10^3/uL (150-450); RED BLOOD COUNT 3.02 10^6/uL (4.00-5.40)
[2023-09-14 07:00] LABS: HEMOGLOBIN 9.8 g/dl (12.0-15.5)
[2023-09-14 07:31] LABS: ALBUMIN 3.1 G/DL (3.2-5.2); ALKALINE PHOSPHATASE 91 U/L (46-116); ALT/SGPT 24 U/L (7.0-40); AST/SGOT 19 U/L (<34); BILIRUBIN,TOTAL 0.5 MG/DL (0.3-1.2); BLOOD UREA NITROGEN 13 MG/DL (9-23); CALCIUM LEVEL 7.2 MG/DL (8.3-10.6); CARBON DIOXIDE LEVEL 20 MMOL/L (20-31); CHLORIDE LEVEL 114 MMOL/L (98-107); CREATININE FOR GFR 0.74 MG/DL (0.55-1.30); GLOMERULAR FILTRATION RATE > 60.0 (>39); GLUCOSE, FASTING 91 MG/DL (74-106); MAGNESIUM LEVEL 1.6 MG/DL (1.8-2.4); SODIUM LEVEL 142 MMOL/L (136-145); TOTAL PROTEIN 5.2 G/DL (5.7-8.2)
[2023-09-14 08:03] VITALS: BP 115/55; TEMP 96.9; O2SAT 97
[2023-09-14] MEDS: MAG SULF 1GM/100ML (MAG RUN) 1 GM in IV 1 EA IV SCH (08:31)
[2023-09-14 08:32] VITALS: BP 126/60
[2023-09-14] MEDS: MAGNESIUM OXIDE 400MG TAB (MAG-OX) PO ONE (08:33)
[2023-09-14 08:36] VITALS: BP 126/60
[2023-09-14] MEDS: lisinopriL 5 MG TAB PO SCH (08:36)
[2023-09-14 10:44] VITALS: BP 111/55
[2023-09-14] MEDS ORDERED: MAGN400T2 PO (11:36)
[2023-09-14] MEDS ORDERED: TYLE650T38 PO (11:38)
[2023-09-14] MEDS ORDERED: ONDA-83 PO (11:38)
== END 2023-09-14 12:52 | disposition home or self-care (01) ==
LOC: M ED 03:48 → M ED INP 09:06 → M PCU 13:35
PROVIDERS: ADMIT Internal Medicine; ATTEND Internal Medicine
DX: I16.0 Hypertensive urgency (principal); J18.9 Pneumonia, unspecified organism; A41.9 Sepsis, unspecified organism; Z85.3 Personal history of malignant neoplasm of breast; Z92.21 Personal history of antineoplastic chemotherapy; C90.00 Multiple myeloma not having achieved remission; I10 Essential (primary) hypertension; E78.5 Hyperlipidemia, unspecified; D64.9 Anemia, unspecified; G40.909 Epilepsy, unspecified, not intractable, without status epilepticus; Z79.899 Other long term (current) drug therapy; Z88.5 Allergy status to narcotic agent; Z88.8 Allergy status to other drugs, medicaments and biological substances
CPT/HCPCS: 36415; 70450; 70496; 70498; 71045; 74018; 80047; 80053; 80177; 82248; 82550; 82553; 83735; 84484; 85025; 93005; 93041; 94760; 96361; 96372; 96374; 96375; 99285; G0378; J1650; J1885; J1920; J2405; J2765; J3475; Q9967

== ENCOUNTER → 2023-09-25 | Outpatient (REF) | payer MEDICARE, BC, OTHER ==
[~2023-09-25] MED LIST changes: +LISI2.5T8 PO; +MAGN400T2 PO; +NAPR-885 PO; +ONDA-83 PO; +TYLE650T38 PO
[2023-09-25 08:28] LABS: BLOOD UREA NITROGEN 17 MG/DL (9-23); CALCIUM LEVEL 8.9 MG/DL (8.3-10.6); CARBON DIOXIDE LEVEL 24 MMOL/L (20-31); CHLORIDE LEVEL 108 MMOL/L (98-107); CREATININE FOR GFR 0.66 MG/DL (0.55-1.30); GLOMERULAR FILTRATION RATE > 60.0 (>39); GLUCOSE, FASTING 139 MG/DL (74-106); MAGNESIUM LEVEL 1.7 MG/DL (1.8-2.4); POTASSIUM SERUM 4.1 MMOL/L (3.5-5.1); SODIUM LEVEL 141 MMOL/L (136-145)
== END ==
LOC: M LAB REF 07:47
PROVIDERS: ATTEND Family Medicine
DX: E61.2 Magnesium deficiency (principal)

== ENCOUNTER 2023-10-12 08:30 | Outpatient (CLI) | payer MEDICARE, BC ==
[~2023-10-12] VITALS: Ht 157.5 cm; Wt 59.1 kg
[2023-10-12 08:25] VITALS: BP 118/70; O2SAT 100
[~2023-10-12 08:30] MED LIST changes: +ALBUTEROL SULFATE 2.5MG/0.5ML INH NEB SOLN INH PRN; +EPINEPHrine INJ 1 MG/ML 1ML AMP IM PRN; +NS 1,000 ML IV SCH; +diphenhydrAMINE 50MG/ML VIAL IV PRN; +methylPREDNISolone 125MG 2ML VIAL IV PRN
[2023-10-12] MEDS: diphenhydrAMINE 25MG CAP PO ONE (08:35)
[2023-10-12] MEDS: ACETAMINOPHEN TAB 650MG DOSE (2X325MG) PO ONE (08:35)
[2023-10-12] MEDS: IMMUNE GLOBULIN 10% 10 GM in IV 1 EA IV ONE (09:01)
[2023-10-12 09:30] VITALS: BP 120/60; O2SAT 100
[2023-10-12 10:00] VITALS: BP 122/68; O2SAT 100
[2023-10-12 10:45] VITALS: BP 148/70; O2SAT 99
[2023-10-12] MEDS ORDERED: SODIUM CHLORIDE 0.9% INJ 10 ML SYR IV PRN (10:55)
== END 2023-10-12 11:00 ==
LOC: M INFU 08:30
PROVIDERS: ATTEND Internal Medicine Medical Oncology
DX: D80.1 Nonfamilial hypogammaglobulinemia (principal); Z88.5 Allergy status to narcotic agent; Z88.8 Allergy status to other drugs, medicaments and biological substances
CPT/HCPCS: 96365; 96366; J1459

== ENCOUNTER 2023-11-06 21:39 | Emergency (ER) | payer MEDICARE, BC, OTHER ==
[~2023-11-06] VITALS: Ht 157.5 cm; Wt 59.1 kg
[~2023-11-06 21:39] MED LIST changes: -ALBUTEROL SULFATE 2.5MG/0.5ML INH NEB SOLN INH PRN; -EPINEPHrine INJ 1 MG/ML 1ML AMP IM PRN; +FURO20TA2 PO; -NS 1,000 ML IV SCH; -diphenhydrAMINE 50MG/ML VIAL IV PRN; -methylPREDNISolone 125MG 2ML VIAL IV PRN
[2023-11-06] MEDS ORDERED: ONDANSETRON 4MG 2ML VIAL As Ordered ONE (22:58)
[2023-11-06 23:02] VITALS: BP 194/104
[2023-11-06] MEDS: ONDANSETRON 4MG 2ML VIAL IV ONE (23:02)
[2023-11-06] MEDS: hydrALAZINE 20MG/ML 1ML VIAL IV ONE (23:02)
[2023-11-06 23:09] LABS: BASO % 0.4 % (0.0-1.0); EOS # 0.1 10^3/uL (0.0-0.5); EOS % 1.7 % (0.0-3.0); HEMATOCRIT 34.7 % (36.0-47.0); HEMOGLOBIN 11.7 g/dl (12.0-15.5); LYMPH # 2.2 10^3/uL (1.5-5.0); LYMPH % 28.1 % (24.0-44.0); MEAN CORPUSCULAR HEMOGLOBIN 30.5 pg (27.0-33.0); MEAN CORPUSCULAR HGB CONC 33.7 g/dl (32.0-36.5); MEAN CORPUSCULAR VOLUME 90.6 fl (80.0-96.0); MONO # 0.6 10^3/uL (0.0-0.8); MONO % 7.2 % (2.0-8.0); NEUTROPHILS # 4.8 10^3/uL (1.5-8.5); NEUTROPHILS % 61.7 % (36.0-66.0); PLATELET COUNT, AUTOMATED 339 10^3/uL (150-450); RED BLOOD COUNT 3.83 10^6/uL (4.00-5.40); WHITE BLOOD COUNT 7.8 10^3/uL (4.0-10.0)
[2023-11-06 23:30] VITALS: TEMP 98
[2023-11-06] MEDS: MECLIZINE 25 MG TABLET PO ONE (23:35)
[2023-11-07 00:03] LABS: CK-MB VALUE MASS < 1.0 NG/ML (<3.6)
[2023-11-07 00:05] LABS: ALBUMIN 3.7 G/DL (3.2-5.2); ALKALINE PHOSPHATASE 140 U/L (46-116); ALT/SGPT 40 U/L (7.0-40); AST/SGOT 46 U/L (<34); BILIRUBIN,TOTAL 0.2 MG/DL (0.3-1.2); BLOOD UREA NITROGEN 13 MG/DL (9-23); CALCIUM LEVEL 8.8 MG/DL (8.3-10.6); CARBON DIOXIDE LEVEL 23 MMOL/L (20-31); CHLORIDE LEVEL 107 MMOL/L (98-107); CREATININE FOR GFR 0.75 MG/DL (0.55-1.30); GLOMERULAR FILTRATION RATE > 60.0 (>39); GLUCOSE, FASTING 114 MG/DL (74-106); POTASSIUM SERUM 3.9 MMOL/L (3.5-5.1); SODIUM LEVEL 140 MMOL/L (136-145); TOTAL PROTEIN 6.7 G/DL (5.7-8.2)
[2023-11-07 00:20] LABS: CPK CREATINE PHOSPHOKINASE 38 U/L (34-145); MB/CK RELATIVE INDEX 2.63 (< OR =4)
[2023-11-07 00:30] VITALS: BP 131/61; O2SAT 97
== END 2023-11-07 01:10 | disposition home or self-care (01) ==
LOC: M ED 21:39
DX: I16.0 Hypertensive urgency (principal); R51.9 Headache, unspecified; I10 Essential (primary) hypertension; G40.909 Epilepsy, unspecified, not intractable, without status epilepticus; Z88.5 Allergy status to narcotic agent; Z91.048 Other nonmedicinal substance allergy status; Z88.8 Allergy status to other drugs, medicaments and biological substances; Z79.82 Long term (current) use of aspirin; Z79.811 Long term (current) use of aromatase inhibitors; Z79.83 Long term (current) use of bisphosphonates; Z79.899 Other long term (current) drug therapy

== ENCOUNTER 2023-11-09 08:20 | Outpatient (CLI) | payer MEDICARE, BC ==
[~2023-11-09] VITALS: Ht 157.5 cm; Wt 59.0 kg
[~2023-11-09 08:20] MED LIST changes: +PILL CUTTER 1 EACH XX PRN
[2023-11-09 08:30] VITALS: BP 150/78; O2SAT 96
[2023-11-09] MEDS ORDERED: EPINEPHrine INJ 1 MG/ML 1ML AMP IM PRN (08:30)
[2023-11-09] MEDS ORDERED: NS 1,000 ML IV SCH (08:30)
[2023-11-09] MEDS ORDERED: diphenhydrAMINE 50MG/ML VIAL IV PRN (08:30)
[2023-11-09] MEDS ORDERED: methylPREDNISolone 125MG 2ML VIAL IV PRN (08:30)
[2023-11-09] MEDS ORDERED: ALBUTEROL SULFATE 2.5MG/0.5ML INH NEB SOLN INH PRN (08:30)
[2023-11-09] MEDS: ACETAMINOPHEN TAB 650MG DOSE (2X325MG) PO ONE (08:50)
[2023-11-09] MEDS: diphenhydrAMINE 25MG CAP PO ONE (08:50)
[2023-11-09] MEDS: dexAMETHasone 4 MG TAB PO ONE (08:51)
[2023-11-09] MEDS: IMMUNE GLOBULIN 10% 10 GM in IV 1 EA IV ONE (09:20)
[2023-11-09 10:00] VITALS: BP 146/70; O2SAT 97
[2023-11-09 11:00] VITALS: BP 160/70; O2SAT 99
[2023-11-09 11:15] VITALS: BP 148/80; O2SAT 99
[2023-11-09] MEDS: SODIUM CHLORIDE 0.9% INJ 10 ML SYR IV PRN (11:25)
== END 2023-11-09 11:30 ==
LOC: M INFU 08:20
PROVIDERS: ATTEND Internal Medicine Medical Oncology
DX: D80.1 Nonfamilial hypogammaglobulinemia (principal); Z88.5 Allergy status to narcotic agent; Z88.8 Allergy status to other drugs, medicaments and biological substances; Z91.09 Other allergy status, other than to drugs and biological substances
CPT/HCPCS: 96365; 96366; J1459

== ENCOUNTER → 2023-11-15 | Outpatient (REF) | payer MEDICARE, BC ==
[~2023-11-15] MED LIST changes: -PILL CUTTER 1 EACH XX PRN
== END ==
LOC: M LAB REF 12:28
PROVIDERS: ATTEND Physician Assistant
DX: J02.9 Acute pharyngitis, unspecified (principal)

== ENCOUNTER 2023-12-07 08:06 | Outpatient (CLI) | payer MEDICARE, BC ==
[~2023-12-07] VITALS: Ht 157.5 cm; Wt 59.0 kg
[2023-12-07 08:25] VITALS: BP 163/74; O2SAT 97
[2023-12-07] MEDS ORDERED: ALBUTEROL SULFATE 2.5MG/0.5ML INH NEB SOLN INH PRN (08:30)
[2023-12-07] MEDS ORDERED: PILL CUTTER 1 EACH XX PRN (08:30)
[2023-12-07] MEDS ORDERED: EPINEPHrine INJ 1 MG/ML 1ML AMP IM PRN (08:30)
[2023-12-07] MEDS ORDERED: methylPREDNISolone 125MG 2ML VIAL IV PRN (08:30)
[2023-12-07] MEDS ORDERED: NS 1,000 ML IV SCH (08:30)
[2023-12-07] MEDS ORDERED: diphenhydrAMINE 50MG/ML VIAL IV PRN (08:30)
[2023-12-07] MEDS: diphenhydrAMINE 25MG CAP PO ONE (08:39)
[2023-12-07] MEDS: ACETAMINOPHEN TAB 650MG DOSE (2X325MG) PO ONE (08:39)
[2023-12-07] MEDS: dexAMETHasone 4 MG TAB PO ONE (08:39)
[2023-12-07] MEDS: IMMUNE GLOBULIN 10% 10 GM in IV 1 EA IV ONE (08:41)
[2023-12-07 09:15] VITALS: BP 133/61; O2SAT 97
[2023-12-07 09:45] VITALS: BP 128/71; O2SAT 99
[2023-12-07 10:15] VITALS: BP 116/67; O2SAT 99
[2023-12-07 10:30] VITALS: BP 131/63; O2SAT 99
[2023-12-07] MEDS: SODIUM CHLORIDE 0.9% INJ 10 ML SYR IV PRN (10:43)
== END 2023-12-07 10:45 ==
LOC: M INFU 08:06
PROVIDERS: ATTEND Internal Medicine Medical Oncology
DX: D80.1 Nonfamilial hypogammaglobulinemia (principal); Z88.5 Allergy status to narcotic agent; Z88.8 Allergy status to other drugs, medicaments and biological substances; Z91.09 Other allergy status, other than to drugs and biological substances
CPT/HCPCS: 96365; 96366; 96367; J1459; J1642

== ENCOUNTER → 2024-02-05 | Outpatient (CLI) | payer MEDICARE, BC, OTHER | LOC: M WUC 15:32 | PROVIDERS: ATTEND Student in an Organized Health Care Education/Training Program | DX: R06.02 Shortness of breath (principal); J98.4 Other disorders of lung ==

== ENCOUNTER → 2024-02-27 | Outpatient (REF) | payer MEDICARE, BC ==
[~2024-02-27] MED LIST changes: -CYCL5TAB; +CYCL5TAB4; +NAPR-885
== END ==
LOC: M LAB REF 12:20
PROVIDERS: ATTEND Physician Assistant Medical
DX: B34.9 Viral infection, unspecified (principal)

== ENCOUNTER → 2024-03-08 | Outpatient (CLI) | payer MEDICARE, BC | LOC: M WHC 15:52 | PROVIDERS: ATTEND Specialist | DX: Z12.31 Encounter for screening mammogram for malignant neoplasm of breast (principal); Z85.3 Personal history of malignant neoplasm of breast; R92.313 Mammographic fatty tissue density, bilateral breasts ==

== ENCOUNTER 2024-03-15 07:43 | Emergency (ER) | payer MEDICARE, BC ==
[~2024-03-15] VITALS: Ht 157.5 cm; Wt 59.7 kg
[2024-03-15] MEDS ORDERED: SODIUM CHLORIDE 0.9% INJ 10 ML SYR IV PRN (08:30)
[2024-03-15 09:18] LABS: BASO # 0.1 10^3/uL (0.0-0.2); BASO % 0.7 % (0.0-1.0); EOS # 0.2 10^3/uL (0.0-0.5); EOS % 1.8 % (0.0-3.0); HEMATOCRIT 34.4 % (36.0-47.0); HEMOGLOBIN 11.4 g/dl (12.0-15.5); LYMPH # 1.7 10^3/uL (1.5-5.0); LYMPH % 18.2 % (24.0-44.0); MEAN CORPUSCULAR HEMOGLOBIN 29.2 pg (27.0-33.0); MEAN CORPUSCULAR HGB CONC 33.1 g/dl (32.0-36.5); MEAN CORPUSCULAR VOLUME 88.2 fl (80.0-96.0); MONO # 0.8 10^3/uL (0.0-0.8); MONO % 8.3 % (2.0-8.0); NEUTROPHILS # 6.7 10^3/uL (1.5-8.5); NEUTROPHILS % 70.4 % (36.0-66.0); PLATELET COUNT, AUTOMATED 314 10^3/uL (150-450); WHITE BLOOD COUNT 9.5 10^3/uL (4.0-10.0)
[2024-03-15 09:38] LABS: LIPASE 49 U/L (12-53)
[2024-03-15 09:47] LABS: VENOUS BASE EXCESS -3.5 (-2.0-2.0); VENOUS HCO3 20.9 MMOL/L (23.0-27.0); VENOUS O2 SATURATION 94.6 % (60.0-80.0); VENOUS PARTIAL PRESSURE CO2 35.7 mmHg (38.0-50.0); VENOUS PARTIAL PRESSURE O2 77.2 mmHg (30.0-50.0); VENOUS PH 7.386 UNITS (7.330-7.430); VENOUS STANDARD HCO3 21.5 MMOL/L
[2024-03-15 09:51] LABS: ALBUMIN 3.5 G/DL (3.2-5.2); ALKALINE PHOSPHATASE 119 U/L (35-104); ALT/SGPT 28 U/L (7.0-40); AST/SGOT 33 U/L (<34); BILIRUBIN,DIRECT < 0.1 MG/DL (<0.4); BILIRUBIN,TOTAL 0.5 MG/DL (0.3-1.2); BLOOD UREA NITROGEN 12 MG/DL (9-23); CALCIUM LEVEL 9.3 MG/DL (8.3-10.6); CARBON DIOXIDE LEVEL 23 MMOL/L (20-31); CHLORIDE LEVEL 108 MMOL/L (98-107); GLOMERULAR FILTRATION RATE > 60.0 (>39); GLUCOSE, FASTING 100 MG/DL (74-106); MAGNESIUM LEVEL 2.1 MG/DL (1.8-2.4); SODIUM LEVEL 141 MMOL/L (136-145); TOTAL PROTEIN 6.9 G/DL (5.7-8.2)
[2024-03-15] MEDS ORDERED: ISOVUE-370 76% 100ML VIAL As Ordered ONE (10:33)
[2024-03-15] MEDS ORDERED: LISINOPRIL *2.5 MG* TAB PO ONE (11:10)
[2024-03-15] MEDS ORDERED: lisinopriL 5 MG TAB PO ONE (12:20)
[2024-03-15] MEDS: FLUTICASONE PROP 0.05% NASAL SPRAY 16 GM (FLONASE) NARES ONE ×2 (12:32→13:37)
[2024-03-15] MEDS: ONDANSETRON 4MG 2ML VIAL IV ONE (12:38)
[2024-03-15] MEDS: ACETAMINOPHEN 325 MG TAB PO ONE (12:38)
[2024-03-15] MEDS: METOCLOPRAMIDE INJ 10MG/2ML VIAL IV ONE (14:08)
[2024-03-15] MEDS: NS (Normal Saline) 0.9% 1,000 ML IV ONE (14:08)
[2024-03-15] MEDS ORDERED: REGL5TAB2 PO (15:47)
[2024-03-15 16:30] VITALS: BP 104/55; O2SAT 96
[2024-03-15 16:41] VITALS: TEMP 99.3
== END 2024-03-15 16:35 | disposition home or self-care (01) ==
LOC: M ED 07:43
DX: R11.10 Vomiting, unspecified (principal); R19.7 Diarrhea, unspecified; R09.82 Postnasal drip; K44.9 Diaphragmatic hernia without obstruction or gangrene; I10 Essential (primary) hypertension; E78.5 Hyperlipidemia, unspecified; D64.9 Anemia, unspecified; Z88.5 Allergy status to narcotic agent; Z88.8 Allergy status to other drugs, medicaments and biological substances; Z91.048 Other nonmedicinal substance allergy status; Z48.815 Encounter for surgical aftercare following surgery on the digestive system; Z79.82 Long term (current) use of aspirin; Z79.811 Long term (current) use of aromatase inhibitors; Z79.899 Other long term (current) drug therapy
CPT/HCPCS: 74177; 80047; 80048; 80076; 82803; 83690; 83735; 85025; 87486; 87581; 87633; 87798; 93005; 96374; 96375; 99285; J2405; J2765; Q9967

== ENCOUNTER 2024-12-22 16:57 | Emergency (ER) | payer MEDICARE, BC, OTHER ==
[~2024-12-22] VITALS: Ht 157.5 cm; Wt 64.6 kg
[~2024-12-22 16:57] MED LIST changes: -CETI-24; -OMEP40CA4 PO; -SUCR1TA PO
[2024-12-22] MEDS ORDERED: CETI-24 (17:09)
[2024-12-22 17:57] LABS: BASO # 0.0 10^3/uL (0.0-0.2); BASO % 0.4 % (0.0-1.0); EOS # 0.1 10^3/uL (0.0-0.5); EOS % 1.3 % (0.0-3.0); LYMPH # 2.8 10^3/uL (1.5-5.0); LYMPH % 25.4 % (24.0-44.0); MONO # 0.9 10^3/uL (0.0-0.8); MONO % 8.3 % (2.0-8.0); NEUTROPHILS # 7.1 10^3/uL (1.5-8.5); NEUTROPHILS % 64.1 % (36.0-66.0); PLATELET COUNT, AUTOMATED 319 10^3/uL (150-450)
[2024-12-22 18:25] LABS: ALT/SGPT 41 U/L (7.0-40); AST/SGOT 37 U/L (<34)
[2024-12-22] MEDS: ONDANSETRON 4MG 2ML VIAL IV ONE (18:34)
[2024-12-22] MEDS: KETOROLAC 30 MG/ML 1 ML VIAL IV ONE (18:35)
[2024-12-22] MEDS ORDERED: ISOVUE-370 76% 100 ML VIAL As Ordered ONE (18:43)
[2024-12-22 19:27] LABS: KETONE, URINE AUTO RFX NEGATIVE (NEGATIVE); MUCUS, URINE RFX SMALL (NEGATIVE); NITRITE, URINE AUTO RFX NEGATIVE (NEGATIVE); RBC, URINE AUTO RFX 3 /HPF (0-3); SQUAM EPITHELIAL CELL UR AURFX 1 /HPF (0-6); WBC, URINE AUTO RFX 5 /HPF (0-3)
[2024-12-22 19:28] LABS: LEUKOCYTE ESTERASE UR AUTO RFX 1+ (NEGATIVE)
[2024-12-22] MEDS ORDERED: SUCR1TA PO (20:07)
[2024-12-22] MEDS ORDERED: OMEP40CA4 PO (20:07)
[2024-12-22] MEDS ORDERED: ONDA-282 PO (20:09)
[2024-12-22 20:12] VITALS: BP 140/78; TEMP 98.9; O2SAT 97
[2024-12-22] MEDS: ONDANSETRON 4MG ORAL DISINTEGRATING TAB PO ONE (20:19)
[2024-12-22] MEDS: SUCRALFATE SUSP 1GM/10ML UD PO ONE (20:19)
[2024-12-22] MEDS: ACETAMINOPHEN 500 MG TAB PO ONE (20:19)
[2024-12-22] MEDS: PANTOPRAZOLE 40MG VIAL IV ONE (20:20)
== END 2024-12-22 20:34 | disposition home or self-care (01) ==
LOC: M ED 16:57
DX: K52.9 Noninfective gastroenteritis and colitis, unspecified (principal); E78.5 Hyperlipidemia, unspecified; I10 Essential (primary) hypertension; Z90.89 Acquired absence of other organs; Z88.5 Allergy status to narcotic agent; Z88.8 Allergy status to other drugs, medicaments and biological substances; Z91.048 Other nonmedicinal substance allergy status; Z79.82 Long term (current) use of aspirin; Z79.1 Long term (current) use of non-steroidal anti-inflammatories (NSAID); Z79.83 Long term (current) use of bisphosphonates; Z79.899 Other long term (current) drug therapy; Z85.3 Personal history of malignant neoplasm of breast; B34.9 Viral infection, unspecified
CPT/HCPCS: 74160; 80047; 80076; 81001; 83605; 83690; 85025; 87086; 87486; 87581; 87633; 87798; 93005; 96374; 96375; 99284; J1885; J2405; J2470; Q9967

== ENCOUNTER → 2024-12-22 | Outpatient (REF) | payer MEDICARE, BC, OTHER ==
[~2024-12-22] MED LIST changes: +ACYC-438 PO; -ACYC1TAB PO; +CETI-24; +OMEP40CA4 PO; +REGL5TAB2 PO; +SUCR1TA PO
== END ==
LOC: M LAB REF 09:03
PROVIDERS: ATTEND Physician Assistant
DX: B34.9 Viral infection, unspecified (principal)

== ENCOUNTER → 2025-03-26 | Outpatient (CLI) | payer MEDICARE, BC ==
[~2025-03-26] MED LIST changes: +CETI-24; +OMEP40CA4 PO; +SUCR1TA PO
== END ==
LOC: M WHC 10:12
PROVIDERS: ATTEND Specialist
DX: Z12.31 Encounter for screening mammogram for malignant neoplasm of breast (principal); Z13.820 Encounter for screening for osteoporosis; R92.313 Mammographic fatty tissue density, bilateral breasts; M81.0 Age-related osteoporosis without current pathological fracture